=== PATIENT | female | born 1980 | race Caucasian/White ===

== ENCOUNTER 2023-10-01 13:21 | Inpatient (IN) | payer OTHER, SELFPAY ==
[2023-10-01] VITALS (48 sets, daily range): BP systolic 92–113; BP diastolic 66–80; PULSE 97–119; RESP 15–29; TEMP 36.2–37.6; O2SAT 90–99; BMI 21.9
--- NOTE | ~2023-10-01 | US_ITS ---
EXAMINATION: US venous doppler [facility] DATE: 10/06/2023 19:46 INDICATION: Hypoxia. Asymmetric lower limb swelling. TECHNIQUE: Grayscale ultrasound images without and with compression and Doppler ultrasound images of the bilateral lower extremity veins were obtained. COMPARISON: None. FINDINGS: The visualized portions of right common femoral vein, profunda (deep) femoral vein, femoral vein, pop liteal vein, posterior tibial veins, peroneal veins, gastrocnemius vein and greater saphenous vein ou tflow are patent. The visualized portions of left common femoral vein, profunda femoral vein, femoral vein, popliteal v ein, posterior tibial veins, peroneal veins, gastrocnemius vein and greater saphenous vein outflow ar e patent. IMPRESSION: 1. No deep venous thrombosis in either lower limb. Reviewed, dictated and finalized at location A. ER DISCOVERY TEACHER
--- NOTE | ~2023-10-01 | XR_ITS ---
EXAMINATION: XR chest 1V portable Exam Date/Time: 10/03/2023 15:15 MOTOR ANALYST HISTORY: cough Comparison: 07/09/2010. RESULT: Lines, tubes, and devices: Cholecystectomy clips. Intact median sternotomy wires. Lungs and pleura: Mild diffuse interstitial and reticulonodular opacities. Linear left lower lung op acity may represent discoid atelectasis or scar. Cardiomediastinal silhouette: Stable. Other: No acute osseous or upper abdominal finding. IMPRESSION: Mild interstitial edema versus respiratory bronchiolitis. Reviewed, dictated and finalized at location K. R ANALYST
--- NOTE | ~2023-10-01 | XR_ITS ---
Portable chest x-ray Comparison: 10/16/2023 Clinical History: Respiratory failure Findings: Endotracheal tube, NG tube, and right IJ line remain in place. Extensive hazy and intersti tial pulmonary disease is similar to minimally improved from prior exam. Cardiomediastinal silhouett e is stable. Bones and soft tissues are unremarkable. Impression: Diffuse pulmonary disease is similar to minimally improved from prior exam. Stable support tubes. Reviewed, dictated and finalized at [facility]. CENTER CONSULTANT Impression: Diffuse pulmonary disease is similar to minimally improved from prior exam. Stable support tubes.
--- NOTE | ~2023-10-01 | XR_ITS ---
EXAMINATION: XR chest ET placement DATE: 10/12/2023 16:48 INDICATION: Intubation TECHNIQUE: frontal view of the chest was obtained. COMPARISON: Chest radiograph dated 10/15/[address] dated 10/10/2023 FINDINGS: Endotracheal tube tip extends slightly prominent but ute into the right mainstem bronchus. There i s a gastric tube tip in proximal side port in the stomach. Right internal jugular central venous cath eter with distal tip at the superior cavoatrial junction. Interstitial and patchy airspace opacities throughout both lungs. No pleural effusion or pneumothorax . Heart size is normal for AP technique. Cholecystectomy clips in right upper quadrant. IMPRESSION: 1. Endotracheal tube in the right mainstem bronchus. Per discussion with the patient's nurse this has already been withdrawn by 2 cm and would correlate with follow-up radiograph. 2. Diffuse bilateral lung disease which could represent pneumonia and/or moderate pulmonary edema. Reviewed, dictated and finalized at location A. FER IMPRESSION: 1. Endotracheal tube in the right mainstem bronchus. Per discussion with the librado laurent's nurse this has already been withdrawn by 2 cm and would correlate with follow-up radiograph. 2. Diffuse bilateral lung disease which could represent pneumonia and/or modera te pulmonary edema.
--- NOTE | ~2023-10-01 | XR_ITS ---
EXAMINATION: XR chest 1V portable DATE: 10/16/2023 05:45 INDICATION: Acute respiratory distress syndrome. Respiratory failure. TECHNIQUE: A single frontal view of the chest was obtained. COMPARISON: Chest single view 10/15/2023 FINDINGS: There are airspace and interstitial opacities throughout the lungs bilaterally. No pleural effusion or pneumothorax. The heart size is normal. There are small median sternotomy wires. The endo tracheal tube tip is 4.0 cm above the ute. The nasogastric tube tip is beyond the inferior margin of the radiograph, but at least to the stomach. A right internal jugular central venous catheter is s een with tip in the proximal right atrium. Surgical clips in the right upper quadrant are likely from cholecystectomy. IMPRESSION: 1. Stable diffuse lung disease, consistent with pulmonary edema versus pneumonia versus acute respira tory distress syndrome (ARDS). Reviewed, dictated and finalized at location A. ORT SALES AGENT IMPRESSION: 1. Stable diffuse lung disease, consistent with pulmonary edema versus pneumoni a versus acute respiratory distress syndrome (ARDS).
--- NOTE | ~2023-10-01 | XR_ITS ---
EXAMINATION: XR abdomen gastric tube insert DATE: 10/12/2023 16:48 INDICATION: Orogastric tube placement. TECHNIQUE: A supine view of the abdomen on 2 radiographs was obtained. COMPARISON: CT abdomen and pelvis 10/11/23 FINDINGS: There are no dilated loops of bowel. The nasogastric tube tip is in the distal stomach. IMPRESSION: 1. Nasogastric tube tip in the distal stomach. Reviewed, dictated and finalized at location E. ING MACHINE OPERATOR
--- NOTE | ~2023-10-01 | CT_ITS ---
EXAMINATION: CTA chest PE protocol DATE: 10/10/2023 10:50 INDICATION: Hypoxia. Pleuritic chest pain. Tachycardia. TECHNIQUE: Computed tomography angiography (CTA) of the chest was performed with 100 mL Omnipaque-350 intravenous contrast timed to evaluate the pulmonary arteries. Coronal maximum intensity projection 3D-reconstructions were created by the technologist. Automated exposure control and iterative reconst ruction technique were employed. The dose-length product was 225.72 mGy-cm. COMPARISON: Chest CT 10/01/2023 FINDINGS: There are groundglass and airspace opacities, crazy paving, and septal thickening involving all lobes. There are small cystic areas in the upper lobes. There is a trace right pleural effusion. The heart size is normal. No pericardial effusion. Main pulmonary artery is enlarged, consistent wit h pulmonary arterial hypertension. There is no pulmonary embolus. There are small median sternotomy w ires. There is anterior fusion from T1 to T3. IMPRESSION: 1. No pulmonary embolus. 2. Diffuse lung disease with worsening from 10/01/2023, consistent with pneumonia without or with supe rimposed pulmonary edema. Reviewed, dictated and finalized at location E. CAL TRANSPORT SPECIALIST IMPRESSION: 1. No pulmonary embolus. 2. Diffuse lung disease with worsening from 10/01/2023, consistent with pneumoni a without or with superimposed pulmonary edema.
--- NOTE | ~2023-10-01 | CT_ITS ---
EXAMINATION: CT abdomen pelvis wo con DATE: 10/11/2023 08:19 INDICATION: Septicemia. TECHNIQUE: Computed tomography (CT) of the abdomen and pelvis was performed without intravenous contr ast. Automated exposure control and iterative reconstruction technique were employed. The dose-length product was 313.47 mGy-cm. COMPARISON: Chest CT 10/10/2023 FINDINGS: The visualized portions of the lung bases demonstrate widespread groundglass opacities, aircraft systems repairer zy paving, and airspace opacities. There are cystic areas in right middle lobe and lingula. There is a trace right pleural effusion. The heart size is normal. No pericardial effusion. The liver and sple en are normal. There are changes of cholecystectomy. The pancreas, adrenal glands, and kidneys are no rmal. There are no dilated loops of bowel. The appendix is normal. There is a Augustin catheter in expec mikayla position. There are no pathologically enlarged lymph nodes. There is no free intraperitoneal flui d. The bones are unremarkable. IMPRESSION: 1. Stable diffuse lung disease, consistent with pneumonia without or with superimposed pulmonary delgado a. Reviewed, dictated and finalized at location A. UT CLEANER IMPRESSION: 1. Stable diffuse lung disease, consistent with pneumonia without or with super imposed pulmonary edema.
--- NOTE | ~2023-10-01 | XR_ITS ---
Portable chest x-ray Comparison: 10/17/2023 Clinical History: Pneumonia Findings: Endotracheal tube and NG tube are in satisfactory position. Right IJ line are in place. Ex tensive hazy pulmonary disease is similar to prior exam. Cardiomediastinal silhouette is stable. Bon es and soft tissues are unremarkable. Impression: Extensive pulmonary disease is similar to prior exam. Correlate for pulmonary edema or infection. Support tubes, as above. Reviewed, dictated and finalized at location . ECT ARCHITECT Impression: Extensive pulmonary disease is similar to prior exam. Correlate for pulmonary e stephanie or infection. Support tubes, as above.
--- NOTE | ~2023-10-01 | XR_ITS ---
Portable chest x-ray Comparison: 10/05/2023 Clinical History: Shortness of breath Findings: There is new consolidation at the bilateral lung bases, left worse than right. Cardiomedi astinal silhouette is stable. Bones and soft tissues are unremarkable. Impression: Bibasilar consolidation, left worse than right, new from prior exam. Correlate for developing pneumon ia versus pulmonary edema. Reviewed, dictated and finalized at [facility]. REPRESENTATIVE Impression: Bibasilar consolidation, left worse than right, new from prior exam. Correlate for developing pneumonia versus pulmonary edema.
--- NOTE | ~2023-10-01 | CT_ITS ---
CT Scan of the Chest without Contrast: Clinical Indication: Pneumonia Technique: Contiguous sections were acquired throughout the chest without intravenous contrast. Dose reduction technique was used on this scan by utilizing automated exposure control and iterative recon struction technique. The dose-length product (DLP) was 158.30 mGy-cm. COMPARISON: 10/10/2023 Findings: There is no evidence of any significant mediastinal, hilar or axillary lymphadenopathy. The mediastin al soft tissues appear normal. There is no evidence of pleural or pericardial effusion. There is diffuse groundglass pulmonary opacities more confluent consolidation in the left upper lobe, which is worsened from prior exam. There is patchy bibasilar consolidation as well. Images through the upper abdomen reveal splenomegaly. Impression: Extensive groundglass pulmonary disease with worsening consolidation left upper lobe as well as addit ional bibasilar consolidation. Correlate for pulmonary edema, infection, and/or ARDS. Splenomegaly. Reviewed, dictated and finalized at [facility]. ICE ORDER EXPEDITER Impression: Extensive groundglass pulmonary disease with worsening consolidation left upper lobe as well as additional bibasilar consolidation. Correlate for pulmonary ed violet, infection, and/or ARDS. Splenomegaly.
--- NOTE | ~2023-10-01 | CT_ITS ---
Non-contrast Head CT History: Anisocoria Technique: Axial non-contrast imaging of the brain was performed. Dose reduction technique was used on this scan by utilizing automated exposure control and iterative reconstruction technique. The dose -length product (DLP) was 605.33 mGy-cm. Findings: There is a hypodense wedge-shaped area extending to the cortex in the left frontal lobe, ex tending to the left insular cortex, suspicious for acute to subacute infarct. No intracranial hemorrh age identified. There is additional focal hyperdensity in the left cerebellar hemisphere, which could reflect positional acute to subacute infarct. The ventricles and subarachnoid spaces are normal in s ize. The calvarium appears normal. The visualized paranasal sinuses and mastoid air cells are clear . 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 Suspected additional focal acute subacute infarct in the left cerebellum. MR should be considered to further evaluate. Case discussed with Dr. Pepe at the time of this reading. Reviewed, dictated and finalized at location . K MECHANIC APPRENTICE Impression: Focal wedge-shaped acute to subacute infarct involving the left frontal lobe ex tending to the insular cortex. Suspected additional focal acute subacute infarct in the left cerebellum. MR should be considered to further evaluate. Case discussed with Dr. Pepe at the time of this reading.
--- NOTE | ~2023-10-01 | XR_ITS ---
EXAMINATION: XR chest 1V portable INDICATION: ARDS, respiratory failure TECHNIQUE: Portable AP chest at 0449 hours COMPARISON: 10/14/2023 FINDINGS: The endotracheal tube ends approximately 2.8 cm above the ute. The nasogastric tube is i n the stomach. A right internal jugular central venous catheter ends with its tip in the proximal rig ht atrium. Diffuse interstitial and airspace opacities persist throughout all lung zones without sign ificant change. No pleural effusion or pneumothorax. The cardiomediastinal silhouette is stable. Smal l median sternotomy wires are consistent with pediatric cardiac surgery. IMPRESSION: 1. Stable diffuse lung disease, consistent with pneumonia and/or pulmonary edema. Reviewed, dictated and finalized at location F. TOR AND STORAGE BIN TENDER IMPRESSION: 1. Stable diffuse lung disease, consistent with pneumonia and/or pulmonary delgado a.
--- NOTE | ~2023-10-01 | XR_ITS ---
EXAMINATION: XR chest 1V portable DATE: 10/05/2023 10:49 INDICATION: Hypoxia. Influenza. TECHNIQUE: A single frontal view of the chest was obtained. COMPARISON: Chest single view 10/03/2023, chest CT 10/01/2023 FINDINGS: There are mild airspace opacities in the perihilar regions and left lower lung zone. No ple ural effusion or pneumothorax. The heart size is normal. Small mediastinal and aorta are noted. Surgi felecia clips in the right upper quadrant are likely from cholecystectomy. IMPRESSION: 1. Mild airspace opacities in the perihilar regions and left lower lung zone, consistent with pneumon ia. Reviewed, dictated and finalized at location A. ICAL WORKER IMPRESSION: 1. Mild airspace opacities in the perihilar regions and left lower lung zone, c onsistent with pneumonia.
--- NOTE | ~2023-10-01 | CT_ITS ---
EXAMINATION: CTA BRAIN/CAROTID DATE: 10/13/2023 12:11 INDICATION: Acute stroke TECHNIQUE: Computed tomographic angiography (CTA) of the head and neck was performed with 100 mL Omni paque-350 intravenous contrast. Multiplanar reconstructions and maximum intensity projection 3D-recon structions of the carotid arteries and of the intracranial arteries were created by the technologist on a separate workstation. Automated exposure control and iterative reconstruction technique were emp loyed.The dose-length product was 901.51 mGy-cm. COMPARISON: None. FINDINGS: Carotid arteries: Endotracheal tube tip 2.4 cm above the ute. Nasogastric tube extends caudally along the esophagus below the inferior most plane of imaging. Right internal jugular central venous catheter with distal tip extending to the caudal inferior vena cava and beyond the inferior most image. There is fluid layering dependently in the oral and nasopharynx. Prominent enlargement of the main pu lmonary artery consistent with pulmonary arterial hypertension. Mild emphysema and bronchiectatic seda nges in the visualized upper lungs, right greater than left. Crazy paving pattern with extensive grou ndglass opacities and intervening smooth septal line thickening in the visualized upper lungs. There is no evident atherosclerotic plaque with 0% stenosis of the right and left carotid bulbs relat blanca to normal distal artery lumen diameter (NASCET criteria). Bilateral vertebral arteries are codomi nant. Severe cervical spondylosis with likely developmentally fused vertebral bodies and posterior el ements of C2 and C3. There is also fusion anteriorly at T1-T3. Intracranial arteries Vertebral arteries are codominant. There is no hemodynamically significant stenosis in the vertebral, basilar and internal carotid arteries. Vertebral arteries are codominant. There are no aneurysms jayce ntified. The left P1 and bilateral A1 segments are patent. The right posterior cerebral artery suppli ed via a patent right posterior communicating artery. Beyond the second branching of the left middle cerebral artery there is attenuation and decreased contrast enhancement within a few of the cerebral arteries at the left sylvian fissure in the region of the previous noted region of subtly decreased a ttenuation in the posterior right frontal lobe cyst with infarct. Cerebral arterial arborization appe ars otherwise symmetric. IMPRESSION: 1. 0% stenosis of the left carotid bulbs relative to normal distal artery lumen diameter (NASCET crit eria). 2. Attenuation and decreased contrast enhancement suggesting small amount of thrombus within a few of the smaller left middle cerebral artery branches in the region of the left sylvian fissure in the re gion of the previous noted likely acute to subacute infarct in the posterior left frontal lobe. 3. Extensive lung disease with grade 3 pitting pattern in the visualized upper lungs which could repr esent pulmonary edema, pneumonia, ARDS or some combination thereof. Reviewed, dictated and finalized at location A. E REPAIRER IMPRESSION: 1. 0% stenosis of the left carotid bulbs relative to normal distal artery lumen diameter (NASCET criteria). 2. Attenuation and decreased contrast enhancement suggesting small amount of th rombus within a few of the smaller left middle cerebral artery branches in the region of the left sylvian fissure in the region of the previous noted likely a cute to subacute infarct in the posterior left frontal lobe. 3. Extensive lung disease with grade 3 pitting pattern in the visualized upper lungs which could represent pulmonary edema, pneumonia, ARDS or some combinatio n thereof.
--- NOTE | ~2023-10-01 | XR_ITS ---
Portable chest x-ray Comparison: 10/05/2023 Clinical History: Hypoxia Findings: Patchy bilateral airspace consolidation is present. No pleural effusion. Cardiomediastina l silhouette is stable. Bones and soft tissues are unremarkable. Impression: Patchy bilateral airspace consolidation, suspicious for bilateral pneumonia. Reviewed, dictated and finalized at [facility]. STRAIGHTENER Impression: Patchy bilateral airspace consolidation, suspicious for bilateral pneumonia.
--- NOTE | ~2023-10-01 | XR_ITS ---
EXAMINATION: XR barium swallow modified DATE: 10/07/2023 10:33 INDICATION: Dysphagia. TECHNIQUE: The patient was given barium-containing material of multiple consistencies to swallow by t he speech pathologist while I performed fluoroscopy. Fluoroscopy exposure time was 0.7 minutes. The n umber of fluoroscopy images saved to the PACS was 1. Dose-area product was 0.586 Gy-cm^2. FINDINGS: The oral stage, pharyngeal stage, and cervical/esophageal stage of the swallow are normal. IMPRESSION: 1. Normal modified barium swallow. 2. Please refer to the speech therapy report for recommendations. Reviewed, dictated and finalized at location A. RINTENDENT CIRCUS
--- NOTE | ~2023-10-01 | CT_ITS ---
EXAMINATION: CTA chest PE protocol DATE: 10/01/2023 16:15 INDICATION: SOA/CP TECHNIQUE: Computed tomography angiography (CTA) of the chest was performed with 100 mL Omnipaque-350 intravenous contrast timed to evaluate the pulmonary arteries. Coronal maximum intensity projection 3D-reconstructions were created by the technologist. The dose-length product (DLP) was 176.84 mGy-cm. Automated exposure control and iterative reconstruction technique were employed. COMPARISON: None. FINDINGS: Lung parenchyma and airways: Scattered patchy areas of central and centrilobular nodular groundglass and tree-in-bud opacities. Pleura: Unremarkable. Thoracic inlet, axillae and chest wall: Unremarkable. Thoracic aorta: Normal. Mediastinum: Normal. Heart and pericardium: Normal. Coronary artery calcifications: . Upper abdomen: Status post cholecystectomy. Bones: No acute osseous finding. Pulmonary arteries: Study quality: Adequate. No pulmonary emboli detected. IMPRESSION: No CT evidence of acute pulmonary embolus. Pulmonary opacities likely represent atypical/viral infection. Reviewed, dictated and finalized at location K. ECTOR REPAIRER SANDSTONE
--- NOTE | ~2023-10-01 | XR_ITS ---
Portable chest x-ray Comparison: 10/13/2023 Clinical History: Respiratory failure Findings: Endotracheal tube, NG tube, and right-sided central venous line are without significant ch virgil. Diffuse hazy and groundglass pulmonary disease present. Cardiomediastinal silhouette is stable . Bones and soft tissues are unremarkable. Impression: Stable diffuse pulmonary disease. Stable support tubes. Reviewed, dictated and finalized at [facility]. TION AGENT Impression: Stable diffuse pulmonary disease. Stable support tubes.
--- NOTE | ~2023-10-01 | XR_ITS ---
Portable chest x-ray Comparison: 10/12/2023 Clinical History: Respiratory failure Findings: Endotracheal tube, NG tube, and right IJ line are in satisfactory positions. Diffuse hazy and groundglass pulmonary disease is present, similar to prior exam. Cardiomediastinal silhouette is stable. Bones and soft tissues are unremarkable. Impression: Stable diffuse pulmonary disease. Stable support tubes. Reviewed, dictated and finalized at [facility]. H BLENDER Impression: Stable diffuse pulmonary disease. Stable support tubes.
--- NOTE | 2023-10-01 14:28 | ECG_ITS ---
Measurements Intervals [place] Rate: 109 P: 33 OR: 203 QRS: 67 QRSD: 95 T: 192 QT: 364 QTc: 492 Interpretive Statements SINUS TACHYCARDIA CANNOT RULE OUT SEPTAL INFARCT, AGE INDETERMINATE ST-T WAVE ABNORMALITY IN DIFFUSE LEADS- CONSIDER ISCHEMIA BASELINE ARTIFACT- I, II, III, AVR, AVL, AVF, V1-V6 ABNORMAL ECG NO PREVIOUS ECG AVAILABLE FOR COMPARISON Electronically Signed On 10-01-2023 16:11:02 AFTER SCHOOL PROGRAM ASSISTANT by Jose C Shea D.O.
[2023-10-01 14:44] LABS: Basophils Absolute Auto 0.1 K/mm3 (0.0-0.1); Basophils Percent Auto 1.6 % (0.2-1.2); Eosinophils Percent Auto 0.6 % (0-4.4); Hematocrit 50.3 % (37.0-47.0); Hemoglobin 16.8 g/dL (12.0-15.0); Immature Granulocyte Absolute 0.38 K/mm3 (0.00-0.031); Lymphocytes Absolute Auto 1.92 K/mm3 (0.9-3.2); Lymphocytes Percent Auto 30.3 % (18.3-44.2); Mean Corpuscular HGB Conc 33.4 g/dl (32-36); Mean Corpuscular Volume 98.8 fl (80-100); Mean Platelet Volume 11.9 fl (7.4-10.4); Monocytes Percent Auto 15.8 % (2.6-8.5); Neutrophils Absolute Auto 2.9 K/mm3 (1.3-6.7); Neutrophils Percent Auto 45.7 % (45.5-73.1); Platelet Count Result 233 k/mm3 (150-375); Red Blood Count 5.09 M/mm3 (4.2-5.4); Red Cell Distribution Width 13.9 % (11.5-14.5); White Blood Count 6.3 K/mm3 (4.5-10.0)
[2023-10-01 14:53] LABS: Alanine Aminotransferase 10 U/L (6-35); Alkaline Phosphatase 74 U/L (38-126); Anion Gap 10 mmol/L (8-16); Aspartate Amino Transferase 21 U/L (14-36); Bilirubin,Total 0.9 mg/dL (0.2-1.3); Blood Urea Nitrogen 9 mg/dL (7-17); Calcium 9.6 mg/dL (8.4-10.2); Carbon Dioxide 27 mmol/L (22-30); Chloride 98 mmol/L (98-107); Estimated Glomerular Filt Rate > 60; Glucose 112 mg/dL (65-110); Lipase 42 U/L (23-300); Sodium 135 mmol/L (137-145)
[2023-10-01 14:56] LABS: Prothrombin Time 13.2 Seconds (11.1-14.7)
[2023-10-01 14:57] LABS: Partial Thromboplastin Time 27.9 SECONDS (22.3-36.8)
[2023-10-01 15:07] LABS: Troponin I 0.042 ng/mL (0.000-0.034)
[2023-10-01] MEDS: ASPIRIN 81 MG CHEWABLE TABLET 324 MG PO (15:30)
--- NOTE | 2023-10-01 16:02 | PC.NURSE ---
patient denies being . states my old man is neutered . will sign waiver. Celia in [place] aware
--- NOTE | 2023-10-01 16:53 | ED.GENADULT ---
HPI - General Adult General Chief complaint: Chest Pain Stated complaint: sick for one wek Time Seen by Provider: 10/01/23 15:22 History of Present Illness HPI narrative: patient is a 43-year-old female who presents ER with weakness and shortness of breath. Worsening last week. Was associated with sinus congestion sore throat cough. Dyspnea is markedly worsen. Patient reports chest night illness. No hemoptysis. No pain with deep breath. No known sick contacts. Cough is productive. Related Data Allergies Allergy/AdvReac Type Severity Reaction Status Date / Time No Known Allergies Allergy Mild Verified 02/14/17 13:06 Review of Systems Review of Systems: All systems reviewed & are unremarkable except as noted in HPI and below Constitutional: Constitutional: Denies chills, Reports fatigue, Reports fever(s) and Reports weakness ENT: Reports nasal congestion and Reports sore throat Cardiovascular: Cardiovascular: Reports chest pain, Denies rapid heart rate and Denies radiating jaw, neck or arm pain Respiratory: Respiratory: Reports cough, Reports dyspnea and Reports wheezing Gastrointestinal: Gastrointestinal: Reports no additional gastrointestinal complaints Genitourinary: Genitourinary: Reports no additional female genitourinary complaints Musculoskeletal: Musculoskeletal: Reports no additional musculoskeletal complaints [facility] Past Medical History Medical History (Updated 10/01/23 @ 18:55 by Barak Richardson MD) Cardiomyopathy Chiari malformation Degenerative disc disease History of depression History of kidney stones Surgical History Surgical History (Updated 10/01/23 @ 17:13 by Barak Richardson MD) History of cholecystectomy History of open heart surgery Family History Family History (Updated 02/10/17 @ 08:38 by DOCTOR UNKNOWN) Grandparent Family history of chronic obstructive pulmonary disease Mother Family history of chronic obstructive pulmonary disease, Onset Age: 59 Sibling Family history of chronic obstructive pulmonary disease Social History Social History Smoking status: Never smoker Second hand tobacco smoke exposure: No Alcohol intake: current Exam Narrative: GENERAL: chronically ill-appearing, well-nourished, and in no acute distress. HEAD: Normocephalic, atraumatic. EYES: PERRL and EOMI. ENT: Mucous membranes moist. NECK: Supple. CHEST: coarse rales and wheezing bilaterally. No respiratory distress. HEART: Regular rate and rhythm. Normal peripheral pulses. ABDOMEN: Soft, nontender, nondistended. EXTREMITIES: Normal range of motion. No edema. SKIN: Warm, dry, no rash. NEURO: Alert and oriented x3. PSYCH: Normal mood and affect. Course Course Emergency Course: Admit to hospitalist service. Patient with influenza. Troponin still positive but flat. Hospitalist request Cardiology consultation, will have them contacted. Vital Signs Vital signs: Vital Signs Temperature 99.6 F 10/01/23 14:11 Pulse Rate 111 H 10/01/23 14:11 Respiratory Rate 18 10/01/23 14:11 Blood Pressure 107/68 10/01/23 14:11 Pulse Oximetry 97 10/01/23 14:11 Oxygen Delivery Room Air 10/01/23 14:11 Temperature 99.6 F 10/01/23 14:11 Pulse Rate 103 H 10/01/23 16:30 Respiratory Rate 17 10/01/23 16:30 Blood Pressure 108/74 10/01/23 16:03 Pulse Oximetry 90 10/01/23 16:30 Oxygen Delivery Room Air 10/01/23 15:25 Medical Decision Making Vital Signs Vital Signs: Vital Signs Temperature 99.6 F 10/01/23 14:11 Pulse Rate 111 H 10/01/23 14:11 Respiratory Rate 18 10/01/23 14:11 Blood Pressure 107/68 10/01/23 14:11 Pulse Oximetry 97 10/01/23 14:11 Oxygen Delivery Room Air 10/01/23 14:11 Temperature 99.6 F 10/01/23 14:11 Pulse Rate 103 H 10/01/23 16:30 Respiratory Rate 17 10/01/23 16:30 Blood Pressure 108/74 10/01/23 16:03 Pulse Oximetry 90 10/01/23 16:30 Ox
--- NOTE | 2023-10-01 17:19 | ECG_ITS ---
Measurements Intervals [place] Rate: 104 P: 7 SD: 224 QRS: 68 QRSD: 93 T: 244 QT: 372 QTc: 490 Interpretive Statements SINUS OR ECTOPIC ATRIAL TACHYCARDIA CANNOT RULE OUT SEPTAL INFARCT, AGE INDETERMINATE ST-T WAVE ABNORMALITY IN DIFFUSE LEADS- CONSIDER ISCHEMIA BASELINE ARTIFACT- II, III, AVF ABNORMAL ECG COMPARED TO ECG 10/01/2023 14:36:29 NO SIGNIFICANT CHANGES Electronically Signed On 10-01-2023 19:28:45 ENVIRONMENTAL PROTECTION SPECIALIST by Jose C Shea D.O.
[2023-10-01 17:22] LABS: NT Pro B Type Natriuretic Pept 2820 pg/mL (19.9-100)
[2023-10-01 17:45] LABS: Influenza A QL RT-PCR Positive (Negative); Influenza B QL RT-PCR Negative (Negative); RSV RNA, RT-PCR Negative (Negative); SARS-CoV-2 RNA PCR Negative (Negative)
[2023-10-01] MEDS: POTASSIUM CHLORIDE 20 MEQ ER TABLET 40 MEQ PO (18:11)
--- NOTE | 2023-10-01 19:13 | PC.NURSE ---
Report received from SPARKLE Waller. Assumed care of patient at this time.
--- NOTE | 2023-10-01 20:52 | PC.NURSE ---
Attempted to call report, was told RN will call back.
--- NOTE | 2023-10-01 21:01 | ECG_ITS ---
Measurements Intervals [place] Rate: 103 P: -1 GA: 195 QRS: 72 QRSD: 86 T: 228 QT: 373 QTc: 490 Interpretive Statements SINUS OR ECTOPIC ATRIAL TACHYCARDIA CANNOT RULE OUT SEPTAL INFARCT, AGE INDETERMINATE ST-T WAVE ABNORMALITY IN DIFFUSE LEADS- CONSIDER ISCHEMIA BASELINE ARTIFACT- II, III, AVR, AVL, AVF ABNORMAL ECG COMPARED TO ECG 10/01/2023 17:22:53 NO SIGNIFICANT CHANGES Electronically Signed On 10-02-2023 8:00:25 METER READER INSPECTOR by Jose C Shea D.O.
--- NOTE | 2023-10-01 21:16 | ADMGEN ---
This patient, Ivon Cui, was admitted to IMU Room 211-01. Patient/family oriented to hospital policies and general routines including ID bracelet, bed and alarms, visiting hours, pain management, procedures, bathroom and other care routines, personal items, smoking policy, room service/diet, and visiting hours. Information on how to activate the Rapid Response Team has been discussed. Patient/Family are encouraged to report perceived risks to care and to ask questions if they do not understand what they are told or what they should do.
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
[2023-10-01 21:25] LABS: Troponin I 0.039 ng/mL (0.000-0.034)
[2023-10-01 23:39] LABS: CRP 1.8 mg/dL (<1.0)
[2023-10-01 23:51] LABS: Procalcitonin 0.1 ng/mL
[2023-10-01] MEDS: LATANOPROST 0.005% OP SOLN 2.5 ML BTL 1 DROP EACH EYE (23:55)
[2023-10-01] MEDS: LOTEPREDNOL ETABONATE 0.5% OPH 5 ML BOTTLE 1 DROP EACH EYE (23:56)
[2023-10-01] MEDS: guaiFENesin 12 HR 600 MG TABCR PO (23:57)
[2023-10-01] MEDS: methocarbamoL 500 MG TABLET PO (23:57)
[2023-10-01] MEDS: TOPIRAMATE 100 MG TABLET PO (23:57)
[2023-10-01] MEDS: AMITRIPTYLINE HCL 25 MG TABLET 100 MG PO (23:57)
[2023-10-01] MEDS: SODIUM CHLORIDE 0.9% IV 1,000 ML 100 ML IV CONT (23:58)
[2023-10-02] VITALS (20 sets, daily range): BP systolic 95–112; BP diastolic 54–71; PULSE 89–117; RESP 16–24; TEMP 36.2–36.7; O2SAT 92–100
[2023-10-02] MEDS: IPRATROPIUM 0.5 MG/ALBUTEROL SULFATE 2.5 MG AMPUL.NEB 3 ML INHALATION ×4 (02:17→19:33)
[2023-10-02 05:06] LABS: Hematocrit 43.4 % (37.0-47.0); Hemoglobin 14.8 g/dL (12.0-15.0); Mean Corpuscular HGB Conc 34.1 g/dl (32-36); Mean Corpuscular Hemoglobin 33.9 pg (26-34); Mean Corpuscular Volume 99.3 fl (80-100); Mean Platelet Volume 11.3 fl (7.4-10.4); Platelet Count Result 201 k/mm3 (150-375); Red Blood Count 4.37 M/mm3 (4.2-5.4); Red Cell Distribution Width 13.7 % (11.5-14.5); White Blood Count 6.7 K/mm3 (4.5-10.0)
[2023-10-02 05:37] LABS: Anion Gap 9 mmol/L (8-16); Blood Urea Nitrogen 9 mg/dL (7-17); Calcium 8.8 mg/dL (8.4-10.2); Carbon Dioxide 25 mmol/L (22-30); Chloride 101 mmol/L (98-107); Estimated CRCL calculation 63 ml/min; Estimated Glomerular Filt Rate > 60; Glucose 109 mg/dL (65-110); Magnesium 1.5 mg/dL (1.6-2.3); Sodium 135 mmol/L (137-145)
[2023-10-02 05:38] LABS: Potassium 2.8 mmol/L (3.4-5.0)
[2023-10-02] MEDS: MAGNESIUM SULF 2 GM/WATER 50ML 2 GM/50 ML BAG IVPB (06:23)
[2023-10-02] MEDS: methocarbamoL 500 MG TABLET PO ×3 (06:23→21:12)
[2023-10-02] MEDS: POTASSIUM CHLORIDE 20 MEQ ER TABLET 40 MEQ PO (06:26)
[2023-10-02] MEDS: FLUTICASONE/SALMETEROL 115-21 MCG INHALER 1 PUFF 2 PUFF INHALATION ×2 (08:40→19:33)
--- NOTE | 2023-10-02 09:51 | PM.IMPN ---
Progress Note: A&P Assessment and Plan (1) Pneumonia due to influenza A virus: Code(s): J10.00 - Influenza due to other identified influenza virus with unspecified type of pneumonia Status: Acute (2) Influenza A: Code(s): J10.1 - Influenza due to other identified influenza virus with other respiratory manifestations Status: Acute (3) Chest pain: Code(s): R07.9 - Chest pain, unspecified Status: Acute (4) Elevated troponin: Code(s): R79.89 - Other specified abnormal findings of blood chemistry Status: Acute (5) Dehydration: Code(s): E86.0 - Dehydration Status: Acute (6) Asthma: Code(s): J45.909 - Unspecified asthma, uncomplicated Status: Acute (7) Hypokalemia: Code(s): E87.6 - Hypokalemia Status: Acute Plan The patient to the emergency department from home for evaluation cough and shortness of breath. She tested positive for influenza A and chest CTA showed evidence of an associated viral pneumonia. She has had symptoms for well over a week It does not appear that she has a concomitant bacterial pneumonia at this time given normal WBC count. She is wheezing on exam and has been started on scheduled bronchodilators. May benefit from steroids though will hold on that for now. Otherwise continue supportive care. Her chest pain may be related to the coughing however her troponin is a bit elevated at 0.042. Serial troponin was 0.042-0.040-0.039 remains flat. She reports a history of myocarditis previously and given her cardiac history the cardiologists have been consulted for their recommendations. IV fluid and potassium replacement as ordered. Echo has been ordered since hospitalized and now needing oxygen supplementation will start on Tamiflu. Subjective Date/time seen: 10/02/23 09:51 Interval history: No overnight events. Labs reviewed. Chart reviewed. Discussed with nursing staff. Shortness of breath cough generalized weakness Review of Systems Review of Systems: All systems reviewed & are unremarkable except as noted in HPI and below Exam Narrative: General: Moderately ill-appearing female in the semi-Good position in bed. HEENT: Wearing corrective lenses. Slightly hard of hearing. PERRL, EOMI. Sclera anicteric. Tacky mucous membranes. Neck: Supple. No lymphadenopathy or JVD. Respiratory: Respirations are nonlabored and she is speaking in full sentences. Lung sounds are diminished with scattered coarse rhonchi which improved with cough and end-expiratory wheezing. Cardiovascular: Regular rate and rhythm with S1-S2. Soft systolic murmur at the left sternal border. Gastrointestinal: Abdomen is soft, nontender, and nondistended with positive bowel sounds. Skin: Warm and dry. Extremities: No cyanosis, clubbing, or edema. Radial and pedal pulses intact. No palpable knots or cords. Neurological: Alert. Cranial nerves 2-12 are grossly intact. No gross focal deficits to casual conversation. Psychiatric: Pleasant and cooperative with normal mood and affect. Judgment and insight intact. Objective Data Vital Signs Vital Signs: Vital Signs - 24 hr 10/01/23 14:11 10/01/23 15:25 10/01/23 15:22 Temperature 99.6 F Pulse Rate 111 H 105 H Respiratory Rate 18 Blood Pressure 107/68 Pulse Oximetry 97 96 Oxygen Delivery Room Air Room Air Oxygen Flow Rate Fraction of Inspired Oxygen 10/01/23 15:24 10/01/23 15:30 10/01/23 15:31 Temperature Pulse Rate 113 H 119 H 110 H Respiratory Rate 22 H 20 29 H Blood Pressure 103/77 96/72 L Pulse Oximetry 97 93 94 Oxygen Delivery Oxygen Flow Rate Fraction of Inspired Oxygen 10/01/23 15:45 10/01/23 15:46 10/01/23 16:00 Temperature Pulse Rate 105 H 108 H 103 H Respiratory Rate 22 H 20 24 H Blood Pressure 113/80 Pulse Oximetry 91 96 Oxygen Delivery Oxygen Flow Rate Fraction of Inspired Oxygen 10/01/23 16:03 10/01/23 16:20 10/01/23 16:
[2023-10-02] MEDS: KCL 20 MEQ/SW 100 ML 100 ML 50 MEQ IVPB (10:35)
[2023-10-02] MEDS: guaiFENesin 12 HR 600 MG TABCR PO ×2 (10:36→21:12)
[2023-10-02] MEDS: TOPIRAMATE 100 MG TABLET PO ×2 (10:36→17:41)
[2023-10-02] MEDS: ENOXAPARIN 40 MG/0.4 ML SYRINGE SUB-Q (10:36)
[2023-10-02] MEDS: VERAPAMIL HCL 180 MG TABLET ER PO (10:36)
[2023-10-02] MEDS: FUROSEMIDE 40 MG TABLET PO (10:36)
[2023-10-02] MEDS: LOTEPREDNOL ETABONATE 0.5% OPH 5 ML BOTTLE 1 DROP EACH EYE ×2 (10:37→17:41)
[2023-10-02] MEDS: OSELTAMIVIR PHOSPHATE 75 MG CAPSULE PO ×2 (10:51→21:12)
--- NOTE | 2023-10-02 10:57 | PM.CNCAR ---
Assessment and Plan Assessment and plan (1) Elevated troponin: Code(s): R79.89 - Other specified abnormal findings of blood chemistry Status: Acute Assessment and Plan: Mild flat troponin elevation most likely secondary to acute hypoxic illness with influenza A without presentation or symptoms consistent with acute coronary syndrome and/or plaque rupture. Therefore, most likely type 2 infarction. No indication for ischemic evaluation at this time. Will review prior cardiovascular records, echocardiogram, cardiology office notes when available as requested. Further recommendation to follow. Repeat 2D echocardiogram ordered. Further recommendations after review. Discussed plan of care the patient who verbalized understanding and agreed with plan of care. Continue home cardiovascular medical therapy. DVT prophylaxis with enoxaparin. (2) Chest pain: Code(s): R07.9 - Chest pain, unspecified Status: Acute Assessment and Plan: Atypical, chronic made worse with coughing with musculoskeletal/pleuritic component very likely noncardiac. No clinical evidence for acute bobo pericarditis at this time. Conservative management per primary service and pain control is appropriate. Chest pain is not secondary to acute coronary syndrome and/or plaque rupture. (3) Pneumonia due to influenza A virus: Code(s): J10.00 - Influenza due to other identified influenza virus with unspecified type of pneumonia Status: Acute Assessment and Plan: CT angiogram of the chest at presentation revealed pulmonary opacities likely consistent with atypical/viral infection no pulmonary embolism unremarkable heart pericardium as reported but scattered patchy areas of central and centrilobular nodular ground-glass and tree-in-bud opacities. Patient has already been started on oseltamivir and continued on Incruse Ellipta, Advair, DuoNeb bronchodilator therapy. (4) Congenital heart disease: Code(s): Q24.9 - Congenital malformation of heart, unspecified Status: Acute Assessment and Plan: As above, history of surgically corrected secundum ASD, history of bicuspid aortic valve without history of repair thus far. Will review congenital heart disease records as requested when available. Per prior records given her history no indication for prophylactic antibiotics. (5) Cardiomyopathy: Code(s): I42.9 - Cardiomyopathy, unspecified Status: Acute Assessment and Plan: Previous records indicate apical variant hypertrophic cardiomyopathy for 2013. Will review most recent echocardiogram cardiovascular evaluations. However, I do not see evidence of LV dysfunction particularly given chronic medication use with verapamil this would not be favored in guideline directed medical therapy for CHF and/or cardiomyopathy and such this is unlikely. She reports taking verapamil predominantly for palpitations but could not verbalized a specific diagnosis. Patient is not presented in decompensated heart failure nor significant signs or symptoms suggestive of severe or significant LV dysfunction at this time. Will review echo further assessment with appropriate changes medications as clinically appropriate. (6) Hypokalemia: Code(s): E87.6 - Hypokalemia Status: Acute Assessment and Plan: Hypokalemic at 2.8 at presentation. Replete to around 4.0. Continue to monitor magnesium as well. Monitor renal function electrolytes closely. Electrolyte abnormalities may be increased risk for arrhythmias. Continue telemetry. 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
[2023-10-02 13:27] LABS: Potassium 3.7 mmol/L (3.4-5.0)
--- NOTE | 2023-10-02 16:54 | PC.NURSE ---
1630: Patient arrives from IMU bed 211 by . Patient able to ambulate from to bed without difficulties. She was oriented to her room and call light. Warm blanket and ice water given. Patient poor communicator and cannot articulate much about her care from previous unit. Appropriate cuff pulled to obtain accurate BP. Patient resting comfortably.
--- NOTE | 2023-10-02 17:10 | PC.NURSE ---
This patient, Ivon Cui, was transferred to [facility] on 10/02/23 at 1710. Personal belongings sent with patient. Report given to Tavia VILLAGRAN. Appropriate documentation sent with patient.
[2023-10-02] MEDS: AMITRIPTYLINE HCL 25 MG TABLET 100 MG PO (21:12)
[2023-10-02] MEDS: LATANOPROST 0.005% OP SOLN 2.5 ML BTL 1 DROP EACH EYE (21:13)
[2023-10-03] VITALS (18 sets, daily range): BP systolic 87–100; BP diastolic 51–70; PULSE 61–115; RESP 16–18; TEMP 36.3–36.6; O2SAT 93–100
[2023-10-03] MEDS: IPRATROPIUM 0.5 MG/ALBUTEROL SULFATE 2.5 MG AMPUL.NEB 3 ML INHALATION ×4 (01:01→19:29)
[2023-10-03 06:44] LABS: Hematocrit 42.3 % (37.0-47.0); Hemoglobin 13.8 g/dL (12.0-15.0); Mean Corpuscular HGB Conc 32.6 g/dl (32-36); Mean Corpuscular Hemoglobin 33.4 pg (26-34); Mean Corpuscular Volume 102.4 fl (80-100); Mean Platelet Volume 11.4 fl (7.4-10.4); Platelet Count Result 286 k/mm3 (150-375); Red Blood Count 4.13 M/mm3 (4.2-5.4); White Blood Count 7.1 K/mm3 (4.5-10.0)
[2023-10-03 06:54] LABS: Alanine Aminotransferase 7 U/L (6-35); Albumin Level 3.1 g/dL (3.5-5.1); Alkaline Phosphatase 54 U/L (38-126); Anion Gap 7 mmol/L (8-16); Aspartate Amino Transferase 19 U/L (14-36); Bilirubin,Total 0.5 mg/dL (0.2-1.3); Blood Urea Nitrogen 8 mg/dL (7-17); Calcium 9.5 mg/dL (8.4-10.2); Carbon Dioxide 26 mmol/L (22-30); Chloride 102 mmol/L (98-107); Estimated CRCL calculation 56 ml/min; Estimated Glomerular Filt Rate > 60; Glucose 98 mg/dL (65-110); Magnesium 1.7 mg/dL (1.6-2.3); Potassium 3.1 mmol/L (3.4-5.0); Sodium 135 mmol/L (137-145)
[2023-10-03 07:43] LABS: Band Neutrophils Percent 3 % (0-6); Lymphocytes Absolute Manual 2.27 K/mm3 (1.1-4.5); Monocytes Absolute Manual 0.35 K/mm3 (0.1-0.90); Monocytes Percent Manual 5 % (3-9); Neutrophils Absolute Manual 4.47 K/mm3 (1.7-7.2); Neutrophils Percent Manual 60 % (46-73); Platelet Estimate Adequate (Adequate); Schistocytes None Seen (NORMAL); Total Cells Counted 100
[2023-10-03] MEDS: FLUTICASONE/SALMETEROL 115-21 MCG INHALER 1 PUFF 2 PUFF INHALATION ×2 (07:53→19:29)
[2023-10-03] MEDS: POTASSIUM CHLORIDE 20 MEQ ER TABLET 40 MEQ PO (09:07)
[2023-10-03] MEDS: ENOXAPARIN 40 MG/0.4 ML SYRINGE SUB-Q (09:07)
[2023-10-03] MEDS: TOPIRAMATE 100 MG TABLET PO ×2 (09:08→16:57)
[2023-10-03] MEDS: FUROSEMIDE 40 MG TABLET PO (09:08)
[2023-10-03] MEDS: VERAPAMIL HCL 180 MG TABLET ER PO (09:08)
[2023-10-03] MEDS: guaiFENesin 12 HR 600 MG TABCR PO ×2 (09:08→20:36)
[2023-10-03] MEDS: OSELTAMIVIR PHOSPHATE 75 MG CAPSULE PO ×2 (09:08→20:36)
[2023-10-03] MEDS: LOTEPREDNOL ETABONATE 0.5% OPH 5 ML BOTTLE 1 DROP EACH EYE ×2 (09:09→17:00)
[2023-10-03] MEDS: methocarbamoL 500 MG TABLET PO ×2 (13:26→20:36)
--- NOTE | 2023-10-03 14:57 | PM.IMPN ---
Progress Note: A&P Assessment and Plan (1) Pneumonia due to influenza A virus: Code(s): J10.00 - Influenza due to other identified influenza virus with unspecified type of pneumonia Status: Acute (2) Influenza A: Code(s): J10.1 - Influenza due to other identified influenza virus with other respiratory manifestations Status: Acute (3) Chest pain: Code(s): R07.9 - Chest pain, unspecified Status: Acute (4) Elevated troponin: Code(s): R79.89 - Other specified abnormal findings of blood chemistry Status: Acute (5) Dehydration: Code(s): E86.0 - Dehydration Status: Acute (6) Asthma: Code(s): J45.909 - Unspecified asthma, uncomplicated Status: Acute (7) Hypokalemia: Code(s): E87.6 - Hypokalemia Status: Acute Plan The patient to the emergency department from home for evaluation cough and shortness of breath. She tested positive for influenza A and chest CTA showed evidence of an associated viral pneumonia. She has had symptoms for well over a week It does not appear that she has a concomitant bacterial pneumonia at this time given normal WBC count. She is wheezing on exam and has been started on scheduled bronchodilators. May benefit from steroids though will hold on that for now. Otherwise continue supportive care. Her chest pain may be related to the coughing however her troponin is a bit elevated at 0.042. Serial troponin was 0.042-0.040-0.039 remains flat. She reports a history of myocarditis previously and given her cardiac history the cardiologists have been consulted for their recommendations. IV fluid and potassium replacement as ordered. Echo has been ordered since hospitalized and now needing oxygen supplementation will start on Tamiflu. Check procalcitonin. Afebrile labs unremarkable. If procalcitonin hide will start on antibiotics. Echo pending will hold Lasix due to borderline blood pressure Subjective Date/time seen: 10/03/23 14:57 Interval history: No overnight events. Continued to feel tired remains afebrile. Blood pressure is borderline Review of Systems Review of Systems: All systems reviewed & are unremarkable except as noted in HPI and below Exam Narrative: General: Moderately ill-appearing female in the semi-Good position in bed. HEENT: Wearing corrective lenses. Slightly hard of hearing. PERRL, EOMI. Sclera anicteric. Tacky mucous membranes. Neck: Supple. No lymphadenopathy or JVD. Respiratory: Respirations are nonlabored and she is speaking in full sentences. Lung sounds are diminished with scattered coarse rhonchi which improved with cough and end-expiratory wheezing. Cardiovascular: Regular rate and rhythm with S1-S2. Soft systolic murmur at the left sternal border. Gastrointestinal: Abdomen is soft, nontender, and nondistended with positive bowel sounds. Skin: Warm and dry. Extremities: No cyanosis, clubbing, or edema. Radial and pedal pulses intact. No palpable knots or cords. Neurological: Alert. Cranial nerves 2-12 are grossly intact. No gross focal deficits to casual conversation. Psychiatric: Pleasant and cooperative with normal mood and affect. Judgment and insight intact. Objective Data Vital Signs Vital Signs: Vital Signs - 24 hr 10/02/23 16:00 10/02/23 16:30 10/02/23 19:39 Temperature 98.1 F 97.2 F L Pulse Rate 114 H 108 H 89 Respiratory Rate 24 H 16 18 Blood Pressure 101/57 L 97/60 L Pulse Oximetry 92 94 Oxygen Delivery Oxygen Flow Rate Fraction of Inspired Oxygen 10/02/23 19:40 10/02/23 19:52 10/02/23 20:55 Temperature 97.9 F Pulse Rate 89 91 97 Respiratory Rate 18 18 16 Blood Pressure 95/57 L Pulse Oximetry 96 97 Oxygen Delivery Nasal Cannula Oxygen Flow Rate 2 Fraction of Inspired Oxygen 10/02/23 20:00 10/03/23 01:01 10/03/23 01:10 Temperature Pulse Rate 85 87 Respiratory Rate 18 18 Blood Pressure Pulse Oximetry 97 Oxygen De
[2023-10-03] MEDS: PERFLUTREN LIPID MICROSPHERES 1.5 ML VIAL DILUTED TO 10 ML TOTAL VOLUME IV PUSH (15:45)
--- NOTE | 2023-10-03 16:05 | IVDEFINITY ---
Prior to administration of IV Definity the patient was educated on the risks and benefits of the imaging enhancing agent including potential adverse side effects. The patient verbalized understanding. Allergies were verified. No exclusion criteria were identified and at least one of the following inclusion criteria were met: 1) physician request, 2) patient technically difficult to image (per the [place] [employer] guidelines of two or more segments not discernable within the apical view), or 3) questionable left ventricular function. ?
[2023-10-03 16:37] LABS: Procalcitonin 0.1 ng/mL
[2023-10-03] MEDS: LATANOPROST 0.005% OP SOLN 2.5 ML BTL 1 DROP EACH EYE (16:58)
[2023-10-03] MEDS: SODIUM CHLORIDE 0.9% IV 1,000 ML 75 ML IV CONT (16:58)
[2023-10-03] MEDS: AMITRIPTYLINE HCL 25 MG TABLET 100 MG PO (20:36)
[2023-10-03] MEDS: methylPREDNISolone SOD SUCC 40 MG VIAL IV PUSH (20:37)
--- NOTE | 2023-10-03 23:01 | ECHO_ITS ---
Patient Info Name: Ivon Cui Age: 43 years : 1980 Gender: Female Ht: 60 in Wt: 112 lbs BSA: 1.47 m2 HR: 68 bpm BP: 91 / 57 mmHg Heart Rhythm: Sinus Rhythm, Tachycardia Technical Quality: Fair Exam Date: 10/03/2023 2:09 PM Exam Location: Echo Lab Exam Room: 309 Patient Status: Inpatient Admit Date: 10/03/2023 Staff Ordering Physician: Tessa Bermudez PA-C [employer] Manager: Nicolette Bearden RDCS Attending Provider: Shad Hernandez MD Referring Physician: Aidan HENSON; Exam Type: CA echo doppler w bubble study Study Info Indications - chest pain elevated troponins chd asd closure Complete two-dimentional, color flow and Doppler transthoracic echocardiogram is performed with agitated saline and with contrast to opacify the left ventricle and to improve the delineation of the left ventricle endocardial borders. Contrast/Agitated Saline Contrast/Ag. Saline: Definity Amount: 3.00 ml Administered By: Nicolette Bearden [facility] Existing IV Access: Yes IV Access Condition: patent with no signs of infiltration Summary 1. Left ventricular chamber dimension is normal. 2. Left ventricular systolic function is hyperdynamic, estimated at >70%. 3. There is no increased left ventricular wall thickness. However, there is suggestion of hypertrophy for the apex with a spade-like appearance suggestive of apical predominant hypertrophic cardiomyopathy. Clinical correlation advised. 4. The left ventricular diastolic function is indeterminate. 5. Technically difficult study with limited views. 6. No evidence for [id number] shunt with injection of agitated saline with or without Valsalva. 7. The aortic valve is not well visualized. 8. There is no aortic valve stenosis or significant regurgitation. 9. There is mild mitral valve regurgitation. 10. There is trace tricuspid valve regurgitation. 11. No pulmonary hypertension, estimated pulmonary arterial systolic pressure is 22 mmHg. 12. Consider cardiac MRI on an outpatient basis if clinically indicated. Recommendations * Consider cardiac MRI on an outpatient basis if clinically indicated. Left Ventricle Left ventricular chamber dimension is normal. Left ventricular systolic function is hyperdynamic, estimated at >70%. There is no increased left ventricular wall thickness. However, there is suggestion of hypertrophy for the apex with a spade-like appearance suggestive of apical predominant hypertrophic cardiomyopathy. Clinical correlation advised. The left ventricular diastolic function is indeterminate. Technically difficult study with limited views. Right Ventricle Right ventricular chamber dimension is not well visualized. Left Atria Left atrial chamber dimension is normal. Right Atria Right atrial chamber dimension is normal. Atrial Septum No evidence for [id number]-[id number] shunt with injection of agitated saline with or without Valsalva. Aortic Valve The aortic valve is not well visualized. There is no aortic valve stenosis or significant regurgitation. Pulmonic Valve The pulmonic valve is not well visualized. Mitral Valve The mitral valve has normal leaflets. There is mild mitral valve regurgitation. Tricuspid Valve The tricuspid valve leaflets are normal. There is trace tricuspid valve regurgitation. No pulmonary hypertension, estimated pulmonary arterial systolic pressure is 22 mmHg. Pericardium/Pleural The pericardium appears not well visualized. There is no pericardial effusion. Inferior Vena Cava Normal inferior vena cava with >50%
[2023-10-04] VITALS (16 sets, daily range): BP systolic 98–106; BP diastolic 51–61; PULSE 92–611; RESP 16–28; TEMP 36.5–36.6; O2SAT 93–95
[2023-10-04] MEDS: IPRATROPIUM 0.5 MG/ALBUTEROL SULFATE 2.5 MG AMPUL.NEB 3 ML INHALATION ×4 (01:21→21:32)
[2023-10-04] MEDS: SODIUM CHLORIDE 0.9% IV 1,000 ML 75 ML IV CONT (06:19)
[2023-10-04] MEDS: methylPREDNISolone SOD SUCC 40 MG VIAL IV PUSH ×3 (06:20→20:59)
[2023-10-04] MEDS: methocarbamoL 500 MG TABLET PO ×3 (06:20→20:59)
[2023-10-04 06:43] LABS: Basophils Absolute Auto 0.1 K/mm3 (0.0-0.1); Basophils Percent Auto 0.7 % (0.2-1.2); Hematocrit 43.1 % (37.0-47.0); Hemoglobin 13.8 g/dL (12.0-15.0); Immature Granulocyte Absolute 0.62 K/mm3 (0.00-0.031); Immature Granulocyte Percent A 6.2 % (0-0.5); Lymphocytes Absolute Auto 0.75 K/mm3 (0.9-3.2); Lymphocytes Percent Auto 7.5 % (18.3-44.2); Mean Corpuscular Hemoglobin 32.9 pg (26-34); Mean Corpuscular Volume 102.6 fl (80-100); Mean Platelet Volume 11.4 fl (7.4-10.4); Monocytes Absolute Auto 0.2 K/mm3 (0.1-0.6); Monocytes Percent Auto 2.2 % (2.6-8.5); Neutrophils Absolute Auto 8.4 K/mm3 (1.3-6.7); Neutrophils Percent Auto 83.4 % (45.5-73.1); Platelet Count Result 366 k/mm3 (150-375); Red Cell Distribution Width 14.2 % (11.5-14.5); White Blood Count 10.1 K/mm3 (4.5-10.0)
[2023-10-04 06:54] LABS: Alanine Aminotransferase 9 U/L (6-35); Albumin Level 3.3 g/dL (3.5-5.1); Alkaline Phosphatase 54 U/L (38-126); Anion Gap 9 mmol/L (8-16); Aspartate Amino Transferase 20 U/L (14-36); Bilirubin,Total 0.5 mg/dL (0.2-1.3); Blood Urea Nitrogen 8 mg/dL (7-17); Calcium 9.2 mg/dL (8.4-10.2); Carbon Dioxide 20 mmol/L (22-30); Chloride 104 mmol/L (98-107); Estimated CRCL calculation 56 ml/min; Estimated Glomerular Filt Rate > 60; Glucose 174 mg/dL (65-110); Magnesium 1.4 mg/dL (1.6-2.3); Potassium 3.9 mmol/L (3.4-5.0); Sodium 133 mmol/L (137-145)
[2023-10-04] MEDS: FLUTICASONE/SALMETEROL 115-21 MCG INHALER 1 PUFF 2 PUFF INHALATION ×2 (07:55→21:32)
[2023-10-04] MEDS: OSELTAMIVIR PHOSPHATE 75 MG CAPSULE PO ×2 (08:23→20:59)
[2023-10-04] MEDS: TOPIRAMATE 100 MG TABLET PO ×2 (08:23→17:44)
[2023-10-04] MEDS: guaiFENesin 12 HR 600 MG TABCR PO ×2 (08:23→20:59)
[2023-10-04] MEDS: ENOXAPARIN 40 MG/0.4 ML SYRINGE SUB-Q (08:23)
[2023-10-04] MEDS: MAGNESIUM SULF 2 GM/WATER 50ML 2 GM/50 ML BAG IVPB (08:24)
[2023-10-04] MEDS: VERAPAMIL HCL 180 MG TABLET ER PO (08:24)
[2023-10-04] MEDS: LOTEPREDNOL ETABONATE 0.5% OPH 5 ML BOTTLE 1 DROP EACH EYE ×2 (08:26→17:44)
--- NOTE | 2023-10-04 09:23 | PM.PNCARD ---
Progress Note: A&P Assessment and Plan (1) Elevated troponin: Code(s): R79.89 - Other specified abnormal findings of blood chemistry Status: Acute Assessment and Plan: Mild flat troponin elevation most likely secondary to acute hypoxic illness with influenza A without presentation or symptoms consistent with acute coronary syndrome and/or plaque rupture.? Therefore, most likely type 2 infarction. No indication for ischemic evaluation at this time.?Echocardiogram this admission shows LVEF >70%, suggestion of hypertrophy in the apex with a spade-like appearance suggestive of apical predominant hypertrophic cardiomyopathy. No evidence of interatrial shunt. No significant valvular disease. Continue home cardiovascular medical therapy. Outpatient follow up with her primary photograph printer. (2) Chest pain: Code(s): R07.9 - Chest pain, unspecified Status: Acute Assessment and Plan: Atypical, chronic made worse with coughing with musculoskeletal/pleuritic component very likely noncardiac.? No clinical evidence for acute bobo pericarditis at this time.? Conservative management per primary service and pain control is appropriate.? Chest pain is not secondary to acute coronary syndrome and/or plaque rupture (3) Pneumonia due to influenza A virus: Code(s): J10.00 - Influenza due to other identified influenza virus with unspecified type of pneumonia Status: Acute Assessment and Plan: Management as per primary team. (4) Congenital heart disease: Code(s): Q24.9 - Congenital malformation of heart, unspecified Status: Acute Assessment and Plan: As above, history of surgically corrected secundum ASD, history of bicuspid aortic valve without history of repair thus far.? Per prior records given her history no indication for prophylactic antibiotics. (5) Cardiomyopathy: Code(s): I42.9 - Cardiomyopathy, unspecified Status: Acute Assessment and Plan: Previous records indicate apical variant hypertrophic cardiomyopathy for 2012.? Patient is not in decompensated heart failure nor significant signs or symptoms suggestive of severe or significant LV dysfunction at this time.? Echocardiogram this admission shows LVEF >70%, suggestion of hypertrophy in the apex with a spade-like appearance suggestive of apical predominant hypertrophic cardiomyopathy. No evidence of interatrial shunt. No significant valvular disease. Can resume her PO Lasix if her blood pressures are acceptable. Outpatient follow up with her primary photograph printer. 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 Plan Cardiology will sign off at this time. Please call us back if needed. Recommendations and plan discussed with Hospitalist. 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 Patient also reports sharp chest pain which she states she has had for many years major worse with coughing more recently.? Initially she was severely
--- NOTE | 2023-10-04 09:33 | PCOTNOTE ---
The patient treatment was not able to be completed patient still eating breakfast. Will plan to continue treatment per plan of care.
--- NOTE | 2023-10-04 16:17 | PM.IMPN ---
Progress Note: A&P Assessment and Plan (1) Pneumonia due to influenza A virus: Code(s): J10.00 - Influenza due to other identified influenza virus with unspecified type of pneumonia Status: Acute (2) Influenza A: Code(s): J10.1 - Influenza due to other identified influenza virus with other respiratory manifestations Status: Acute (3) Chest pain: Code(s): R07.9 - Chest pain, unspecified Status: Acute (4) Elevated troponin: Code(s): R79.89 - Other specified abnormal findings of blood chemistry Status: Acute (5) Dehydration: Code(s): E86.0 - Dehydration Status: Acute (6) Asthma: Code(s): J45.909 - Unspecified asthma, uncomplicated Status: Acute (7) Hypokalemia: Code(s): E87.6 - Hypokalemia Status: Acute Plan The patient to the emergency department from home for evaluation cough and shortness of breath. She tested positive for influenza A and chest CTA showed evidence of an associated viral pneumonia. She has had symptoms for well over a week It does not appear that she has a concomitant bacterial pneumonia at this time given normal WBC count. She is wheezing on exam and has been started on scheduled bronchodilators. May benefit from steroids though will hold on that for now. Otherwise continue supportive care. Her chest pain may be related to the coughing however her troponin is a bit elevated at 0.042. Serial troponin was 0.042-0.040-0.039 remains flat. She reports a history of myocarditis previously and given her cardiac history the cardiologists have been consulted for their recommendations. IV fluid and potassium replacement as ordered. Echo has been ordered since hospitalized and now needing oxygen supplementation started on on Tamiflu. Procalcitonin was normal Afebrile labs unremarkable. Echo with EF more than 70% there is suggestion of hypertrophy for the apex with this pain like appearance suggestive of apical predominant hypertrophic cardiomyopathy. No oakgl-[id number]-aujl shunt no pulmonary hypertension consider cardiac MRI as an outpatient basis. Currently lasix on hold due to borderline blood pressure. DVT prophylaxis Lovenox Subjective Date/time seen: 10/04/23 16:17 Interval history: Continue continues to have shortness of breath and wheezing. Remains on 2 L oxygen Review of Systems Review of Systems: All systems reviewed & are unremarkable except as noted in HPI and below Exam Narrative: General: Moderately ill-appearing female sitting up in the chair. HEENT: Wearing corrective lenses. Slightly hard of hearing. PERRL, EOMI. Sclera anicteric. Tacky mucous membranes. Neck: Supple. No lymphadenopathy or JVD. Respiratory: Respirations are nonlabored and she is speaking in full sentences. Lung sounds are diminished with scattered coarse rhonchi with expiratory wheezing Cardiovascular: Regular rate and rhythm with S1-S2. Soft systolic murmur at the left sternal border. Gastrointestinal: Abdomen is soft, nontender, and nondistended with positive bowel sounds. Skin: Warm and dry. Extremities: No cyanosis, clubbing, or edema. Radial and pedal pulses intact. No palpable knots or cords. Neurological: Alert. Cranial nerves 2-12 are grossly intact. No gross focal deficits to casual conversation. Psychiatric: Pleasant and cooperative with normal mood and affect. Judgment and insight intact. Objective Data Vital Signs Vital Signs: Vital Signs - 24 hr 10/03/23 19:30 10/03/23 19:30 10/03/23 20:40 Temperature 97.3 F L Pulse Rate 94 94 110 H Respiratory Rate 18 18 16 Blood Pressure 95/62 L Pulse Oximetry 97 93 Oxygen Delivery Nasal Cannula Oxygen Flow Rate 2 Fraction of Inspired Oxygen 28 10/03/23 20:00 10/03/23 20:00 10/04/23 01:22 Temperature Pulse Rate 105 H 100 Respiratory Rate 18 Blood Pressure Pulse Oximetry 93 Oxygen Delivery Nasal Cannula Oxygen Flow Rate 2 Fraction of Inspired Oxyge
[2023-10-04] MEDS: AMITRIPTYLINE HCL 25 MG TABLET 100 MG PO (20:58)
[2023-10-04] MEDS: LATANOPROST 0.005% OP SOLN 2.5 ML BTL 1 DROP EACH EYE (20:59)
[2023-10-05] VITALS (17 sets, daily range): BP systolic 101–116; BP diastolic 51–71; PULSE 92–126; RESP 18–24; TEMP 36.3–36.8; O2SAT 86–96
[2023-10-05] MEDS: IPRATROPIUM 0.5 MG/ALBUTEROL SULFATE 2.5 MG AMPUL.NEB 3 ML INHALATION ×4 (02:52→20:20)
[2023-10-05] MEDS: methylPREDNISolone SOD SUCC 40 MG VIAL IV PUSH ×3 (06:05→21:33)
[2023-10-05] MEDS: methocarbamoL 500 MG TABLET PO ×3 (06:05→21:33)
[2023-10-05 07:12] LABS: Basophils Absolute Auto 0.1 K/mm3 (0.0-0.1); Basophils Percent Auto 0.4 % (0.2-1.2); Hematocrit 39.6 % (37.0-47.0); Hemoglobin 13.2 g/dL (12.0-15.0); Immature Granulocyte Absolute 0.92 K/mm3 (0.00-0.031); Immature Granulocyte Percent A 4.9 % (0-0.5); Lymphocytes Absolute Auto 0.86 K/mm3 (0.9-3.2); Lymphocytes Percent Auto 4.6 % (18.3-44.2); Mean Corpuscular HGB Conc 33.3 g/dl (32-36); Mean Corpuscular Hemoglobin 33.8 pg (26-34); Mean Corpuscular Volume 101.3 fl (80-100); Mean Platelet Volume 11.3 fl (7.4-10.4); Monocytes Absolute Auto 0.7 K/mm3 (0.1-0.6); Monocytes Percent Auto 3.6 % (2.6-8.5); Neutrophils Absolute Auto 16.3 K/mm3 (1.3-6.7); Neutrophils Percent Auto 86.5 % (45.5-73.1); Platelet Count Result 368 k/mm3 (150-375); Red Blood Count 3.91 M/mm3 (4.2-5.4); Red Cell Distribution Width 14.3 % (11.5-14.5); White Blood Count 18.9 K/mm3 (4.5-10.0)
[2023-10-05 07:35] LABS: Alanine Aminotransferase 8 U/L (6-35); Albumin Level 3.2 g/dL (3.5-5.1); Alkaline Phosphatase 53 U/L (38-126); Anion Gap 8 mmol/L (8-16); Aspartate Amino Transferase 17 U/L (14-36); Bilirubin,Total 0.3 mg/dL (0.2-1.3); Blood Urea Nitrogen 9 mg/dL (7-17); Carbon Dioxide 22 mmol/L (22-30); Chloride 106 mmol/L (98-107); Estimated CRCL calculation 50 ml/min; Estimated Glomerular Filt Rate > 60; Glucose 160 mg/dL (65-110); Potassium 3.4 mmol/L (3.4-5.0); Sodium 136 mmol/L (137-145)
[2023-10-05] MEDS: FLUTICASONE/SALMETEROL 115-21 MCG INHALER 1 PUFF 2 PUFF INHALATION ×2 (08:00→20:20)
[2023-10-05] MEDS: TOPIRAMATE 100 MG TABLET PO ×2 (09:25→17:39)
[2023-10-05] MEDS: ENOXAPARIN 40 MG/0.4 ML SYRINGE SUB-Q (09:25)
[2023-10-05] MEDS: guaiFENesin 12 HR 600 MG TABCR PO ×2 (09:26→21:33)
[2023-10-05] MEDS: LOTEPREDNOL ETABONATE 0.5% OPH 5 ML BOTTLE 1 DROP EACH EYE ×2 (09:26→17:39)
[2023-10-05] MEDS: OSELTAMIVIR PHOSPHATE 75 MG CAPSULE PO ×2 (09:26→21:33)
[2023-10-05] MEDS: VERAPAMIL HCL 180 MG TABLET ER PO (09:26)
--- NOTE | 2023-10-05 10:05 | PM.IMPN ---
Progress Note: A&P Assessment and Plan (1) Pneumonia due to influenza A virus: Code(s): J10.00 - Influenza due to other identified influenza virus with unspecified type of pneumonia Status: Acute Assessment and Plan: The patient presents with cough and shortness of breath. She tested positive for influenza A Chest CTA showed evidence of an associated viral pneumonia. Started on Tamiflu, Solu-medrol and bronchodilators. WBC higher but felt related to steroids. Cough persistent and nonproductive. Consider underlying bacterial PNA. Repeat CXR showing mild airspace opacities in the perihilar regions and LLL Add IS, CPT. Speech therapy to see given the coughing with swallowing. Complains of sore throat related to cough MRSA positive. Add abx. (2) Influenza A: Code(s): J10.1 - Influenza due to other identified influenza virus with other respiratory manifestations Status: Acute Assessment and Plan: As above (3) Chest pain: Code(s): R07.9 - Chest pain, unspecified Status: Acute Assessment and Plan: Patieint present with CP. Troponin was 0.042 before trending down. EKG showing sinus tachycardia and diffuse ST-T wave changes but no change on repeat. Echo showing with EF >70% and hypertrophy at the apex. No right to left shunt. Cardiology consulted and apprecaite their input. (4) Elevated troponin: Code(s): R79.89 - Other specified abnormal findings of blood chemistry Status: Acute Assessment and Plan: As above (5) Dehydration: Code(s): E86.0 - Dehydration Status: Acute Assessment and Plan: Stable. Renal function is normal. (6) Asthma: Code(s): J45.909 - Unspecified asthma, uncomplicated Status: Acute Assessment and Plan: As above (7) Hypokalemia: Code(s): E87.6 - Hypokalemia Status: Acute Assessment and Plan: Noted. Replace and monitor Plan DVT prophylaxis - lovenox Code status - full Subjective Date/time seen: 10/05/23 10:05 Interval history: 43yo female asthma, seizures, CMP and valvular heart disease here for cough and SOB and found to have influenza A Assuming care. Chart reviewed. Complaint sore throat he has pain with swallowing. Her cough is nonproductive. She is not on home oxygen. She does have nebulizers at home for her asthma. She is having chest pain with coughing and deep breathing. Exam Narrative: AF 97.3 101/51 104 18 95% 2L (weaned to 1L this morning) Gen - NARD sitting up in bed HEENT - oropharynx crowded. Chest -coarse inspiratory and expiratory rhonchi with end-expiratory wheezes. CV - RRR S1/S2. tele showing no signifincat dysrhythmias Abd - Soft, NT/ND, Positive BS Ext - No pedal edema Psych - Nml mood and affect Skin - Warm and dry Objective Data Vital Signs Vital Signs: Vital Signs - 24 hr 10/04/23 10:40 10/04/23 12:00 10/04/23 13:44 Temperature Pulse Rate 101 H Respiratory Rate Blood Pressure Pulse Oximetry Oxygen Delivery Nasal Cannula Nasal Cannula Oxygen Flow Rate 2 2 10/04/23 14:18 10/04/23 14:30 10/04/23 14:00 Temperature 97.7 F Pulse Rate 92 98 101 H Respiratory Rate 20 20 28 H Blood Pressure 98/53 L Pulse Oximetry 93 Oxygen Delivery Oxygen Flow Rate 10/04/23 16:00 10/04/23 21:32 10/04/23 21:33 Temperature Pulse Rate 108 H 98 Respiratory Rate 20 Blood Pressure Pulse Oximetry 93 Oxygen Delivery Nasal Cannula Oxygen Flow Rate 2 10/04/23 20:00 10/04/23 23:36 10/05/23 02:53 Temperature 97.9 F Pulse Rate 98 96 Respiratory Rate 16 20 Blood Pressure 106/51 L Pulse Oximetry 93 93 Oxygen Delivery Nasal Cannula Oxygen Flow Rate 2 10/05/23 03:05 10/04/23 20:00 10/05/23 00:00 Temperature Pulse Rate 92 99 122 H Respiratory Rate 20 Blood Pressure Pulse Oximetry Oxygen Delivery Oxygen Flow
--- NOTE | 2023-10-05 11:30 | PCOTNOTE ---
Attempted to see Patient at this time. Patient stated she just recently layed down is not getting back up, she is feeling horrible. As Patient spoke, seems as if she is just having increased difficulty with the bed, for positioning, ease of getting in/out of. Patient declined this session.
--- NOTE | 2023-10-05 14:20 | PCSTNOTE ---
Please refer to the Bedside Swallow Evaluation in the EMR. Please note, silent aspiration cannot be ruled out at bedside.
[2023-10-05 15:35] LABS: MRSA (PCR) DETECTED (NOT DETECTE)
[2023-10-05] MEDS: AMITRIPTYLINE HCL 25 MG TABLET 100 MG PO (21:33)
[2023-10-05] MEDS: cefTRIAXone 2 GM/NS 100 ML 2 GM/100 ML BAG IVPB (21:34)
[2023-10-05] MEDS: DOXYCYCLINE 100 MG/NS 100 ML 100 MG/100 ML BAG IVPB (21:34)
[2023-10-05] MEDS: LATANOPROST 0.005% OP SOLN 2.5 ML BTL 1 DROP EACH EYE (21:36)
--- NOTE | 2023-10-05 23:25 | PC.NURSE ---
Rapid response called pt is short of breath and having difficutling breathing, pt stated having chest pain with movement and coughing. O2 saturation 885% and increased O2 to 6L and O2 saturation remains in the 85% Heart rate 120.
[2023-10-05] MEDS: LEVALBUTEROL NEB 1.25 MG/3 ML (23:30)
--- NOTE | 2023-10-05 23:35 | P.PNCROSS_ITS ---
Event Note Event Note Event Note: Rapid response called around 23:25 S: Nurse reports patient with increasing shortness of breath, oxygen requirements, sinus tachycardia with activity, pleuritic pain, and increasing cough which is now starting to become productive of thick green sputum. O: Ill-appearing female in the semi-recumbent position. Currently on 6 L liters (up from 2L earlier this evening). She is tachycardic. Mildly diaphoretic. She is mildly tachypneic with conversational dyspnea. Lung sounds are very coarse throughout with scattered crackles, end-expiratory wheezing, and rhonchi which improve somewhat with cough. A: Pneumonia due to Influenza A with possible concomitant bacterial pneumonia and increasing oxygen requirements. Suspect progression of pneumonia though with her cardiac history (Leopard syndrome, cardiomyopathy) she may be a bit volume overloaded given ongoing tachycardia. Developing ARDS is a consideration. Pulmonary embolism less likely as chest CTA was negative days ago. P: ABG and chest x-ray ordered. STAT breathing treatment ordered. Continue CPT, Mucinex, and incentive spirometry. Continue Tamilflu, SoluMedrol, doxycycline, ceftriaxone, and scheduled DuoNebs. Add vancomycin to cover possible post viral strep/staph pneumonia (she is positive for MRSA in the nares). Lasix 20 mg IV x1. Check BNP. Transfer to IMU for Airvo vs BiPAP. Case discussed with Dr. Ann, supervisor throwing department. Recommendations given. Patient to be transferred to IMU for close monitoring with the above interventions. If her condition deteriorates would consider intubation and transfer to ICU. Critical Care Time Critical Care Time: Yes Total Critical Care Time: 35 Attestation: Due to a high probability of clinically significant, life threatening deterioration, the patient required my highest level of preparedness to intervene emergently and I personally spent this critical care time directly and personally managing the patient. This critical care time included obtaining a history; examining the patient; pulse oximetry; ordering and review of studies; arranging urgent treatment with development of a management plan; evaluation of patient's response to treatment; frequent reassessment; and discussions with other providers. It was exclusive of separately billable procedures and treating other patients and teaching time. Please see Assessment and Plan section and the rest of the note for further information on patient assessment and treatment.
[2023-10-05 23:47] LABS: Alveolar/Arterial O2 Gradient 273.6 mmHg; Base Excess ABG -2.4 mEq/l (+/-2.0); Carboxyhemoglobin 0.3 % THb (0-2.0); Fractional Inspired Oxygen 50 %; HCO3 ABG 19.2 mEq/l (22.0-26.0); Methemoglobin ABG 0.4 %THb (0-1.5); Oxygen Content ABG 17.9 %vol (16.0-22.0); PCO2 ABG 25.8 mmHg (35.0-45.0); PO2 ABG 53.9 mmHg (80.0-100.0); PO2 FiO2 Ratio Arterial Blood 1.08 %; Reduced Hemoglobin 12.3 %THb (0-5.0); Total Hemoglobin 14.7 g/dL (12.0-18.0); pH ABG 7.489 (7.350-7.450)
[2023-10-05 23:57] LABS: Device HIGH FLOW NASAL CANN; Site Drawn RIGHT BRACHIAL
[2023-10-06] VITALS (29 sets, daily range): BP systolic 91–115; BP diastolic 50–72; PULSE 95–124; RESP 22–36; TEMP 36.6–38; O2SAT 86–99
[2023-10-06 00:38] LABS: Anion Gap 11 mmol/L (8-16); Blood Urea Nitrogen 9 mg/dL (7-17); CRP 4.1 mg/dL (<1.0); Calcium 10.1 mg/dL (8.4-10.2); Carbon Dioxide 20 mmol/L (22-30); Chloride 105 mmol/L (98-107); Estimated CRCL calculation 50 ml/min; Estimated Glomerular Filt Rate > 60; Glucose 133 mg/dL (65-110); Potassium 3.5 mmol/L (3.4-5.0); Sodium 136 mmol/L (137-145)
[2023-10-06 00:45] LABS: NT Pro B Type Natriuretic Pept 3440 pg/mL (19.9-100)
[2023-10-06 00:53] LABS: Procalcitonin 0.3 ng/mL
--- NOTE | 2023-10-06 01:10 | PC.NURSE ---
Report given to Toney in ICU pt transferred to ICU 3. Bill significant other notified of transfer.
--- NOTE | 2023-10-06 01:56 | PC.NURSE ---
This patient, Ivon Cui, was received from [[id number]] on 10/06/23 at 0045. Report received from SPARKLE Oliveros. Patient/family oriented to unit policies and routines.
[2023-10-06] MEDS: VANCOMYCIN 1,500 MG/NS 500 ML 1,500 MG/500 ML BAG 250 MG IVPB (02:08)
[2023-10-06] MEDS: ACETAMINOPHEN/BUTALBITAL/CAFFEINE 325-50-40 MG TABLET (FIORICET) 1 TAB PO ×2 (02:26→22:56)
[2023-10-06] MEDS: IPRATROPIUM 0.5 MG/ALBUTEROL SULFATE 2.5 MG AMPUL.NEB 3 ML INHALATION ×4 (02:37→20:42)
[2023-10-06 04:20] LABS: Basophils Absolute Auto 0.1 K/mm3 (0.0-0.1); Basophils Percent Auto 0.4 % (0.2-1.2); Hematocrit 38.7 % (37.0-47.0); Hemoglobin 12.9 g/dL (12.0-15.0); Immature Granulocyte Absolute 0.37 K/mm3 (0.00-0.031); Immature Granulocyte Percent A 2.2 % (0-0.5); Lymphocytes Absolute Auto 0.28 K/mm3 (0.9-3.2); Lymphocytes Percent Auto 1.7 % (18.3-44.2); Mean Corpuscular HGB Conc 33.3 g/dl (32-36); Mean Corpuscular Hemoglobin 33.5 pg (26-34); Mean Corpuscular Volume 100.5 fl (80-100); Mean Platelet Volume 10.8 fl (7.4-10.4); Monocytes Absolute Auto 1.5 K/mm3 (0.1-0.6); Monocytes Percent Auto 9.2 % (2.6-8.5); Neutrophils Absolute Auto 14.3 K/mm3 (1.3-6.7); Neutrophils Percent Auto 86.5 % (45.5-73.1); Platelet Count Result 273 k/mm3 (150-375); Red Blood Count 3.85 M/mm3 (4.2-5.4); Red Cell Distribution Width 14.6 % (11.5-14.5); White Blood Count 16.6 K/mm3 (4.5-10.0)
[2023-10-06 04:36] LABS: Albumin Level 2.9 g/dL (3.5-5.1); Anion Gap 9 mmol/L (8-16); Blood Urea Nitrogen 10 mg/dL (7-17); Calcium 9.4 mg/dL (8.4-10.2); Carbon Dioxide 21 mmol/L (22-30); Chloride 105 mmol/L (98-107); Estimated CRCL calculation 50 ml/min; Estimated Glomerular Filt Rate > 60; Glucose 144 mg/dL (65-110); Magnesium 1.4 mg/dL (1.6-2.3); Phosphorus 3.6 mg/dL (2.5-4.5); Potassium 3.5 mmol/L (3.4-5.0); Sodium 135 mmol/L (137-145)
[2023-10-06] MEDS: methocarbamoL 500 MG TABLET PO ×3 (05:40→21:05)
[2023-10-06] MEDS: methylPREDNISolone SOD SUCC 40 MG VIAL IV PUSH ×3 (05:40→21:05)
[2023-10-06 05:47] LABS: Alveolar/Arterial O2 Gradient 481.9 mmHg; Base Excess ABG -2.3 mEq/l (+/-2.0); Fractional Inspired Oxygen 90 %; HCO3 ABG 20.5 mEq/l (22.0-26.0); Oxygen Content ABG 19.2 %vol (16.0-22.0); Oxygen Saturation ABG 98.8 % (95.0-100.0); Oxyhemoglobin 97.5 % THb (90.0-100.0); PCO2 ABG 29.8 mmHg (35.0-45.0); PO2 ABG 129.3 mmHg (80.0-100.0); PO2 FiO2 Ratio Arterial Blood 1.44 %; Total Hemoglobin 13.9 g/dL (12.0-18.0); pH ABG 7.455 (7.350-7.450)
[2023-10-06 05:50] LABS: Device NON-INVASIVE VENT; Modified Allen's Test Pass; Non-Invasive Vent Rate 12 /MIN; Site Drawn LEFT RADIAL
[2023-10-06 05:51] LABS: Non-Invasive Expiratory Pressure 6 CMH2O; Non-Invasive Inspiratory Pressure 12 CMH2O
--- NOTE | 2023-10-06 08:39 | PCSTNOTE ---
MBS on hold this morning at Dr. Patel request due to downgraded status; IMU but in ICU-3. Will continue to be in contact with Dr. Patel for when he is ready for patient to have MBS. Will leave order open.
[2023-10-06] MEDS: DOXYCYCLINE 100 MG/NS 100 ML 100 MG/100 ML BAG IVPB ×2 (09:08→21:06)
[2023-10-06] MEDS: FUROSEMIDE 40 MG TABLET PO (09:09)
[2023-10-06] MEDS: ENOXAPARIN 40 MG/0.4 ML SYRINGE SUB-Q (09:09)
[2023-10-06] MEDS: OSELTAMIVIR PHOSPHATE 75 MG CAPSULE PO ×2 (09:09→21:05)
[2023-10-06] MEDS: TOPIRAMATE 100 MG TABLET PO ×2 (09:09→17:39)
[2023-10-06] MEDS: MAGNESIUM SULF 2 GM/WATER 50ML 2 GM/50 ML BAG IVPB (09:09)
[2023-10-06] MEDS: guaiFENesin 12 HR 600 MG TABCR PO ×2 (09:09→21:05)
[2023-10-06] MEDS: FLUTICASONE/SALMETEROL 115-21 MCG INHALER 1 PUFF 2 PUFF INHALATION ×2 (09:10→20:42)
[2023-10-06] MEDS: LOTEPREDNOL ETABONATE 0.5% OPH 5 ML BOTTLE 1 DROP EACH EYE ×2 (09:11→17:39)
--- NOTE | 2023-10-06 09:16 | PM.IMPN ---
Progress Note: A&P Assessment and Plan (1) Acute respiratory failure: Code(s): J96.00 - Acute respiratory failure, unspecified whether with hypoxia or hypercapnia Status: Acute Assessment and Plan: Patient's condition worsened overnight. She was on 1-2 L of oxygen during day with the evening hours, she had worsening hypoxia requiring BiPAP support. ABG showing 7.49/26/54 on high-flow nasal cannula at 7 L, 50% FiO2. Patient did well with BiPAP. She tolerated this well. ABG is showing improvement in the hypoxia. Etiology could be related to aspiration. Consider bacterial pneumonia. Antibiotics had been started yesterday. Chest x-ray reviewed showing more consolidation in the lower lobes suggestive of developing pneumonia verses atelectasis. Consider PE but she had a negative CTA of the chest 4 days ago has been on Lovenox since she was hospitalized. Continue treatment with bronchodilators, steroids and antibiotics. Wean oxygen as tolerated. Make NPO for now. Check lower extremity venous Dopplers. (2) Pneumonia due to influenza A virus: Code(s): J10.00 - Influenza due to other identified influenza virus with unspecified type of pneumonia Status: Acute Assessment and Plan: The patient presents with cough and shortness of breath. She tested positive for influenza A Chest CTA 10/01 showed pulmonary opacities likely atypical/viral pneumonia but no PE. Started on Tamiflu, Solu-Medrol and bronchodilators. WBC was higher but felt related to steroids. White count better today Cough persistent and nonproductive. Sputum culture ordered. Repeat chest x-ray as above. consider underlying bacterial PNA versus atelectasis. MRSA screen positive. Continue IV antibiotics. Contineu CPT to see if this will open up consolidated sections. Speech therapy recommended [facility] [place] but will hold for now. Check blood cultures. Add pulmzyme (3) Influenza A: Code(s): J10.1 - Influenza due to other identified influenza virus with other respiratory manifestations Status: Acute Assessment and Plan: As above. Continue Tamiflu (4) Chest pain: Code(s): R07.9 - Chest pain, unspecified Status: Acute Assessment and Plan: Patieint present with CP. Troponin was 0.042 before trending down. EKG showing sinus tachycardia and diffuse ST-T wave changes but no change on repeat. Echo showing with EF >70% and hypertrophy at the apex. No right to left shunt. Cardiology consulted and apprecaite their input. [place] elevated Trop most likely type 2 infarction. (5) Elevated troponin: Code(s): R79.89 - Other specified abnormal findings of blood chemistry Status: Acute Assessment and Plan: As above (6) Dehydration: Code(s): E86.0 - Dehydration Status: Acute Assessment and Plan: Stable. Renal function is normal. (7) Asthma: Code(s): J45.909 - Unspecified asthma, uncomplicated Status: Acute Assessment and Plan: As above (8) Hypokalemia: Code(s): E87.6 - Hypokalemia Status: Acute Assessment and Plan: Noted. 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 Patient will need to follow up with her primary rooming house operator. (10) Congenital heart disease: Code(s): Q24.9 - Congenital malformation of heart, unspecified Status: Acute Assessment and Plan: Patient has a hx of surgical correction of secundum ASD, history of bicuspid aortic valve without history of repair thus far.? Per prior records given her history no indication for prophylactic antibiotics. Plan DVT prophylaxis - lovenox Code status - full Subjective Date/hector
[2023-10-06] MEDS: ACETAMINOPHEN 325 MG TABLET 650 MG PO ×3 (09:26→18:15)
[2023-10-06] MEDS: VERAPAMIL HCL 180 MG TABLET ER PO (09:27)
[2023-10-06] MEDS: DEXTROSE 5%/0.9% SOD CHL 1,000 ML 60 ML IV CONT (10:34)
[2023-10-06] MEDS: DORNASE ALFA INH SOLN 1 MG/ML 2.5 ML AMP 2.5 MG INHALATION ×2 (11:25→20:42)
--- NOTE | 2023-10-06 13:08 | PCSTNOTE ---
MBS not attempted due to patient's compromised respiratory status and dependence on BiPAP at this time according to SPARKLE Hernandez. Will check with hospitalist and RN tomorrow morning.
[2023-10-06] MEDS: cefTRIAXone 2 GM/NS 100 ML 2 GM/100 ML BAG IVPB (21:05)
[2023-10-06] MEDS: AMITRIPTYLINE HCL 25 MG TABLET 100 MG PO (21:05)
[2023-10-06] MEDS: LATANOPROST 0.005% OP SOLN 2.5 ML BTL 1 DROP EACH EYE (21:06)
[2023-10-06] MEDS: VANCOMYCIN 750 MG/NS 250 ML 750 MG/250 ML BAG 250 MG IVPB (22:55)
[2023-10-07] VITALS (26 sets, daily range): BP systolic 93–129; BP diastolic 55–79; PULSE 83–102; RESP 20–26; TEMP 36.6–37.1; O2SAT 93–99
[2023-10-07] MEDS: IPRATROPIUM 0.5 MG/ALBUTEROL SULFATE 2.5 MG AMPUL.NEB 3 ML INHALATION ×4 (02:18→19:59)
[2023-10-07 03:43] LABS: Basophils Absolute Auto 0.1 K/mm3 (0.0-0.1); Basophils Percent Auto 0.3 % (0.2-1.2); Hematocrit 38.9 % (37.0-47.0); Hemoglobin 12.8 g/dL (12.0-15.0); Immature Granulocyte Absolute 0.52 K/mm3 (0.00-0.031); Immature Granulocyte Percent A 3.2 % (0-0.5); Lymphocytes Absolute Auto 0.47 K/mm3 (0.9-3.2); Lymphocytes Percent Auto 2.9 % (18.3-44.2); Mean Corpuscular HGB Conc 32.9 g/dl (32-36); Mean Corpuscular Hemoglobin 33.1 pg (26-34); Mean Corpuscular Volume 100.5 fl (80-100); Mean Platelet Volume 10.9 fl (7.4-10.4); Monocytes Absolute Auto 0.7 K/mm3 (0.1-0.6); Monocytes Percent Auto 4.4 % (2.6-8.5); Neutrophils Absolute Auto 14.6 K/mm3 (1.3-6.7); Neutrophils Percent Auto 89.2 % (45.5-73.1); Platelet Count Result 239 k/mm3 (150-375); Red Blood Count 3.87 M/mm3 (4.2-5.4); Red Cell Distribution Width 14.4 % (11.5-14.5); White Blood Count 16.4 K/mm3 (4.5-10.0)
[2023-10-07 04:01] LABS: Alanine Aminotransferase 11 U/L (6-35); Albumin Level 2.9 g/dL (3.5-5.1); Alkaline Phosphatase 58 U/L (38-126); Anion Gap 9 mmol/L (8-16); Aspartate Amino Transferase 17 U/L (14-36); Bilirubin,Total 0.4 mg/dL (0.2-1.3); Blood Urea Nitrogen 15 mg/dL (7-17); Calcium 9.5 mg/dL (8.4-10.2); Carbon Dioxide 23 mmol/L (22-30); Chloride 104 mmol/L (98-107); Estimated CRCL calculation 50 ml/min; Estimated Glomerular Filt Rate > 60; Glucose 158 mg/dL (65-110); Magnesium 2.1 mg/dL (1.6-2.3); Phosphorus 3.8 mg/dL (2.5-4.5); Potassium 3.2 mmol/L (3.4-5.0); Sodium 136 mmol/L (137-145)
[2023-10-07] MEDS: DEXTROSE 5%/0.9% SOD CHL 1,000 ML 60 ML IV CONT ×2 (04:36→20:26)
[2023-10-07] MEDS: methylPREDNISolone SOD SUCC 40 MG VIAL IV PUSH ×3 (05:25→22:25)
[2023-10-07] MEDS: methocarbamoL 500 MG TABLET PO ×3 (05:25→22:25)
[2023-10-07] MEDS: DORNASE ALFA INH SOLN 1 MG/ML 2.5 ML AMP 2.5 MG INHALATION ×2 (08:19→19:59)
[2023-10-07] MEDS: FLUTICASONE/SALMETEROL 115-21 MCG INHALER 1 PUFF 2 PUFF INHALATION ×2 (08:19→19:59)
[2023-10-07] MEDS: OSELTAMIVIR PHOSPHATE 75 MG CAPSULE PO (08:29)
[2023-10-07] MEDS: ENOXAPARIN 40 MG/0.4 ML SYRINGE SUB-Q (08:29)
[2023-10-07] MEDS: guaiFENesin 12 HR 600 MG TABCR PO ×2 (08:29→20:27)
[2023-10-07] MEDS: FUROSEMIDE 40 MG TABLET PO (08:29)
[2023-10-07] MEDS: VERAPAMIL HCL 180 MG TABLET ER PO (08:29)
[2023-10-07] MEDS: POTASSIUM CHLORIDE 20 MEQ PACKET (FOR LIQUID) 40 MEQ PO (08:29)
[2023-10-07] MEDS: TOPIRAMATE 100 MG TABLET PO ×2 (08:29→17:21)
[2023-10-07] MEDS: DOXYCYCLINE 100 MG/NS 100 ML 100 MG/100 ML BAG IVPB ×2 (08:30→20:27)
[2023-10-07] MEDS: LOTEPREDNOL ETABONATE 0.5% OPH 5 ML BOTTLE 1 DROP EACH EYE ×2 (08:31→17:21)
--- NOTE | 2023-10-07 09:07 | PM.IMPN ---
Progress Note: A&P Assessment and Plan (1) Acute respiratory failure: Code(s): J96.00 - Acute respiratory failure, unspecified whether with hypoxia or hypercapnia Status: Acute Assessment and Plan: Patient's condition worsened overnight (10/05-10/06). She was on 1-2 L of oxygen during day but developed worsening hypoxia requiring BiPAP support. She tolerated this well. ABG showing 7.49/26/54 on high-flow nasal cannula at 7 L, 50% FiO2. ABG showed improvement in the hypoxia on bipap. CXR showed more consolidation in the lower lobes suggestive of developing pneumonia verses atelectasis. Etiology could be related to aspiration and/or bacterial pneumonia. Antibiotics already started. Consider PE but she had a negative CTA of the chest on admission and has been on Lovenox since she was hospitalized. Doppler LE negative for DVT Better today. CXR today reviewed showing patch bilateral airspace dz c/w PNA. Continue treatment with bronchodilators, steroids and antibiotics. Wean oxygen as tolerated. MBS ordered (2) Pneumonia due to influenza A virus: Code(s): J10.00 - Influenza due to other identified influenza virus with unspecified type of pneumonia Status: Acute Assessment and Plan: The patient presents with cough and shortness of breath. She tested positive for influenza A Chest CTA 10/01 showed pulmonary opacities likely atypical/viral pneumonia but no PE. Started on Tamiflu, Solu-Medrol and bronchodilators. WBC was higher but felt related to steroids. White count unchanged today Cough persistent and nonproductive. Sputum culture pending BCx pending MRSA screen positive. Suspect patient has bacterial PNA related to her influenza Continue IV antibiotics. Continue CPT Speech therapy recommended MBS which was ordered Continue IV abx. (3) Influenza A: Code(s): J10.1 - Influenza due to other identified influenza virus with other respiratory manifestations Status: Acute Assessment and Plan: As above. Continue Tamiflu through today (4) Chest pain: Code(s): R07.9 - Chest pain, unspecified Status: Acute Assessment and Plan: Patieint present with CP. Troponin was 0.042 before trending down. EKG showing sinus tachycardia and diffuse ST-T wave changes but no change on repeat. Echo showing with EF >70% and hypertrophy at the apex. No right to left shunt. Cardiology consulted and apprecaite their input. [place] elevated Trop most likely type 2 infarction. Still having chest pain felt related to above (5) Elevated troponin: Code(s): R79.89 - Other specified abnormal findings of blood chemistry Status: Acute Assessment and Plan: As above (6) Dehydration: Code(s): E86.0 - Dehydration Status: Acute Assessment and Plan: Stable. Renal function is normal. (7) Asthma: Code(s): J45.909 - Unspecified asthma, uncomplicated Status: Acute Assessment and Plan: As above (8) Hypokalemia: Code(s): E87.6 - Hypokalemia Status: Acute Assessment and Plan: Noted. 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 Patient will need to follow up with her primary patient accounting representative. (10) Congenital heart disease: Code(s): Q24.9 - Congenital malformation of heart, unspecified Status: Acute Assessment and Plan: Patient has a hx of surgical correction of secundum ASD, history of bicuspid aortic valve without history of repair thus far.? Per prior records given her history no indication for prophylactic antibiotics. Plan DVT prophylaxis - lovenox Code status - full Subjective Date/time seen:
[2023-10-07] MEDS: ACETAMINOPHEN 325 MG TABLET 650 MG PO (15:00)
[2023-10-07] MEDS: AMITRIPTYLINE HCL 25 MG TABLET 100 MG PO (20:27)
[2023-10-07] MEDS: cefTRIAXone 2 GM/NS 100 ML 2 GM/100 ML BAG IVPB (20:27)
[2023-10-07] MEDS: LATANOPROST 0.005% OP SOLN 2.5 ML BTL 1 DROP EACH EYE (20:28)
[2023-10-07] MEDS: WATER FOR IRRIGATION, STERILE 1,000 ML BOTTLE 1000 ML (21:29)
--- NOTE | 2023-10-07 21:31 | PC.NURSE ---
This patient, Ivon Cui, was received from [ICU3 ] on 10/07/23 at 2107. Patient/family oriented to unit policies and routines
--- NOTE | 2023-10-07 21:50 | PC.NURSE ---
This patient, Ivon Cui, was transferred to [facility] on 10/07/23 at 2109. Personal belongings sent with patient. Report given to Remedios VILLAGRAN. Appropriate documentation sent with patient.
[2023-10-07 23:43] LABS: Vancomycin Trough 8.2 ug/mL (10.0-20.0)
[2023-10-08] VITALS (29 sets, daily range): BP systolic 101–121; BP diastolic 61–87; PULSE 82–113; RESP 16–26; TEMP 36.1–37; O2SAT 89–100
[2023-10-08] MEDS: VANCOMYCIN 750 MG/NS 250 ML 750 MG/250 ML BAG 250 MG IVPB ×2 (00:11→15:34)
[2023-10-08] MEDS: IPRATROPIUM 0.5 MG/ALBUTEROL SULFATE 2.5 MG AMPUL.NEB 3 ML INHALATION ×4 (02:15→20:20)
[2023-10-08 05:46] LABS: Albumin Level 2.8 g/dL (3.5-5.1); Anion Gap 8 mmol/L (8-16); Blood Urea Nitrogen 11 mg/dL (7-17); Calcium 9.4 mg/dL (8.4-10.2); Carbon Dioxide 19 mmol/L (22-30); Chloride 110 mmol/L (98-107); Estimated CRCL calculation 56 ml/min; Estimated Glomerular Filt Rate > 60; Glucose 135 mg/dL (65-110); Potassium 3.1 mmol/L (3.4-5.0); Sodium 137 mmol/L (137-145)
[2023-10-08 05:56] LABS: Basophils Absolute Auto 0.2 K/mm3 (0.0-0.1); Basophils Percent Auto 0.8 % (0.2-1.2); Hematocrit 39.1 % (37.0-47.0); Hemoglobin 12.5 g/dL (12.0-15.0); Immature Granulocyte Absolute 1.26 K/mm3 (0.00-0.031); Immature Granulocyte Percent A 6.3 % (0-0.5); Lymphocytes Absolute Auto 0.58 K/mm3 (0.9-3.2); Lymphocytes Percent Auto 2.9 % (18.3-44.2); Mean Corpuscular Hemoglobin 32.7 pg (26-34); Mean Corpuscular Volume 102.4 fl (80-100); Mean Platelet Volume 11.2 fl (7.4-10.4); Monocytes Absolute Auto 0.9 K/mm3 (0.1-0.6); Monocytes Percent Auto 4.7 % (2.6-8.5); Neutrophils Absolute Auto 17.2 K/mm3 (1.3-6.7); Neutrophils Percent Auto 85.3 % (45.5-73.1); Platelet Count Result 226 k/mm3 (150-375); Red Blood Count 3.82 M/mm3 (4.2-5.4); Red Cell Distribution Width 14.2 % (11.5-14.5); White Blood Count 20.2 K/mm3 (4.5-10.0)
[2023-10-08] MEDS: methylPREDNISolone SOD SUCC 40 MG VIAL IV PUSH (06:20)
[2023-10-08] MEDS: methocarbamoL 500 MG TABLET PO ×2 (06:20→15:34)
[2023-10-08] MEDS: FLUTICASONE/SALMETEROL 115-21 MCG INHALER 1 PUFF 2 PUFF INHALATION ×2 (07:55→20:20)
[2023-10-08] MEDS: DORNASE ALFA INH SOLN 1 MG/ML 2.5 ML AMP 2.5 MG INHALATION ×2 (07:58→20:20)
--- NOTE | 2023-10-08 10:15 | PC.NURSE ---
Call placed to report Critical lab : Positive blood cultures with no answer. On the Final call Dr. Patel answered et was given report on Positive Blood cultures to both bottles with no changes made to the current Plan of Care at this time.
[2023-10-08] MEDS: guaiFENesin 12 HR 600 MG TABCR PO ×2 (10:38→21:06)
[2023-10-08] MEDS: DOXYCYCLINE 100 MG/NS 100 ML 100 MG/100 ML BAG IVPB ×2 (10:39→21:56)
[2023-10-08] MEDS: VERAPAMIL HCL 180 MG TABLET ER PO (10:39)
[2023-10-08] MEDS: ENOXAPARIN 40 MG/0.4 ML SYRINGE SUB-Q (10:41)
[2023-10-08] MEDS: LOTEPREDNOL ETABONATE 0.5% OPH 5 ML BOTTLE 1 DROP EACH EYE ×2 (10:44→17:54)
[2023-10-08] MEDS: FUROSEMIDE 40 MG TABLET PO (11:02)
[2023-10-08] MEDS: POTASSIUM CHLORIDE 20 MEQ PACKET (FOR LIQUID) 40 MEQ PO (11:02)
[2023-10-08] MEDS: TOPIRAMATE 100 MG TABLET PO ×2 (11:02→17:53)
--- NOTE | 2023-10-08 12:06 | PM.IMPN ---
Progress Note: A&P Assessment and Plan (1) Acute respiratory failure: Code(s): J96.00 - Acute respiratory failure, unspecified whether with hypoxia or hypercapnia Status: Acute Assessment and Plan: Patient's condition worsened overnight (10/05-10/06). She was on 1-2 L of oxygen during day but developed worsening hypoxia requiring BiPAP support. She tolerated BiPAP well. ABG showing 7.49/26/54 on high-flow nasal cannula at 7 L, 50% FiO2. Repeat ABG showed improvement in the hypoxia on bipap. CXR showed more consolidation in the lower lobes suggestive of developing pneumonia verses atelectasis. Etiology related to bacterial superinfection with pneumonia. Antibiotics were already started Consider PE but negative Chest CTA on admission and on Lovenox since she was hospitalized. Doppler LE negative for DVT Stable on 6L. MBS okay. CXR 10/07 showing patch bilateral airspace dz c/w PNA. Continue treatment with bronchodilators, steroids and antibiotics. Wean steroids Wean oxygen as tolerated. (2) Pneumonia due to influenza A virus: Code(s): J10.00 - Influenza due to other identified influenza virus with unspecified type of pneumonia Status: Acute Assessment and Plan: The patient presents with cough and shortness of breath. She tested positive for influenza A Chest CTA 10/01 showed pulmonary opacities likely atypical/viral pneumonia but no PE. Started on Tamiflu, Solu-Medrol and bronchodilators. Abx added 10/05 WBC was higher but felt related to steroids. White count higher again today. Cough persistent and mostly nonproductive. MRSA screen positive and Sputum culture growing MRSA BCx growing Staph aureus. Sensitivities pending Patient has bacterial PNA related to her influenza Continue IV antibiotics. Continue CPT Repeat BCx. Resuming PT/OT Consider KOLBY if persistent bacteremia. (3) Influenza A: Code(s): J10.1 - Influenza due to other identified influenza virus with other respiratory manifestations Status: Acute Assessment and Plan: As above. She completed a course of Tamiflu (4) Chest pain: Code(s): R07.9 - Chest pain, unspecified Status: Acute Assessment and Plan: Patieint present with chest pain. Troponin was 0.042 before trending down. EKG showing sinus tachycardia and diffuse ST-T wave changes but no change on repeat. Echo showing with EF >70% and hypertrophy at the apex. No right to left shunt. Cardiology consulted and appreciate their input. [place] elevated Trop most likely type 2 infarction. Still having chest pain felt related to musculoskeletal pain (5) Elevated troponin: Code(s): R79.89 - Other specified abnormal findings of blood chemistry Status: Acute Assessment and Plan: As above (6) Dehydration: Code(s): E86.0 - Dehydration Status: Acute Assessment and Plan: Stable. Renal function is normal. (7) Asthma: Code(s): J45.909 - Unspecified asthma, uncomplicated Status: Acute Assessment and Plan: As above (8) Hypokalemia: Code(s): E87.6 - Hypokalemia Status: Acute Assessment and Plan: Noted. 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 Patient will need to follow up with her primary senior account executive. (10) Congenital heart disease: Code(s): Q24.9 - Congenital malformation of heart, unspecified Status: Acute Assessment and Plan: Patient has a hx of surgical correction of secundum ASD, history of bicuspid aortic valve without history of repair thus far.? Per prior records given her history no indication for prophylactic antibiotics. Plan DVT prophyla
--- NOTE | 2023-10-08 16:23 | PC.NURSE ---
Report given to Dr. Patel the pt is c/o pain 9/10 pleuritic chest pain et has acetaminophen PRN for pain 1-3/10 numeric pain scale. The pt is tearful when coughing. Dr. Patel to review the POC.
[2023-10-08] MEDS: methylPREDNISolone SOD SUCC 40 MG VIAL 20 MG IV PUSH (17:52)
[2023-10-08] MEDS: guaiFENesin/CODEINE (*CRX) 200/20 MG 10 ML SYRUP PO ×2 (17:53→21:55)
[2023-10-08] MEDS: DEXTROSE 5%/0.9% SOD CHL 1,000 ML 60 ML IV CONT (17:54)
[2023-10-08] MEDS: cefTRIAXone 2 GM/NS 100 ML 2 GM/100 ML BAG IVPB (21:06)
[2023-10-08] MEDS: AMITRIPTYLINE HCL 25 MG TABLET 100 MG PO (21:06)
[2023-10-08] MEDS: LATANOPROST 0.005% OP SOLN 2.5 ML BTL 1 DROP EACH EYE (21:07)
[2023-10-08] MEDS: ACETAMINOPHEN 325 MG TABLET 650 MG PO (21:55)
[2023-10-08] MEDS: PANTOPRAZOLE 40 MG TABLET PO (22:21)
--- NOTE | 2023-10-08 23:37 | PC.NURSE ---
Bipap was alarming around 2330, when RN entered room pt had removed and was tachypneic and moaning. Pt states she is having 10/10 pain substernal that felt like severe heartburn . RN placed pt on her 6LHFNC. Pt had c/o earlier about heartburn, RN had obtained an order for protonix and administered to pt. Pt stated this happens every couple of weeks at home. After a few minutes, pt stated pain was subsiding, 3-4. RN checked on the patient 5 minutes later and pt stated the pain was gone completely.
[2023-10-09] VITALS (27 sets, daily range): BP systolic 101–119; BP diastolic 50–74; PULSE 84–110; RESP 18–35; TEMP 35.9–37.1; O2SAT 86–99
[2023-10-09] MEDS: VANCOMYCIN 750 MG/NS 250 ML 750 MG/250 ML BAG 250 MG IVPB (00:16)
[2023-10-09] MEDS: IPRATROPIUM 0.5 MG/ALBUTEROL SULFATE 2.5 MG AMPUL.NEB 3 ML INHALATION ×4 (03:45→20:23)
[2023-10-09 05:14] LABS: Basophils Percent Auto 0.1 % (0.2-1.2); Hematocrit 38.3 % (37.0-47.0); Hemoglobin 12.4 g/dL (12.0-15.0); Immature Granulocyte Absolute 2.35 K/mm3 (0.00-0.031); Immature Granulocyte Percent A 16.1 % (0-0.5); Lymphocytes Absolute Auto 0.96 K/mm3 (0.9-3.2); Lymphocytes Percent Auto 6.6 % (18.3-44.2); Mean Corpuscular HGB Conc 32.4 g/dl (32-36); Mean Corpuscular Volume 101.9 fl (80-100); Mean Platelet Volume 10.6 fl (7.4-10.4); Monocytes Percent Auto 7.1 % (2.6-8.5); Neutrophils Absolute Auto 10.2 K/mm3 (1.3-6.7); Neutrophils Percent Auto 70.1 % (45.5-73.1); Platelet Count Result 192 k/mm3 (150-375); Red Blood Count 3.76 M/mm3 (4.2-5.4); Red Cell Distribution Width 14.1 % (11.5-14.5); White Blood Count 14.6 K/mm3 (4.5-10.0)
[2023-10-09] MEDS: methylPREDNISolone SOD SUCC 40 MG VIAL 20 MG IV PUSH (05:32)
[2023-10-09 05:34] LABS: Albumin Level 2.4 g/dL (3.5-5.1); Anion Gap 3 mmol/L (8-16); Blood Urea Nitrogen 12 mg/dL (7-17); Calcium 9.2 mg/dL (8.4-10.2); Carbon Dioxide 23 mmol/L (22-30); Chloride 110 mmol/L (98-107); Estimated CRCL calculation 299 ml/min; Estimated Glomerular Filt Rate > 60; Glucose 94 mg/dL (65-110); Magnesium 1.7 mg/dL (1.6-2.3); Phosphorus 2.8 mg/dL (2.5-4.5); Potassium 3.6 mmol/L (3.4-5.0); Sodium 136 mmol/L (137-145)
[2023-10-09] MEDS: DORNASE ALFA INH SOLN 1 MG/ML 2.5 ML AMP 2.5 MG INHALATION (08:09)
[2023-10-09] MEDS: FLUTICASONE/SALMETEROL 115-21 MCG INHALER 1 PUFF 2 PUFF INHALATION ×2 (08:09→20:27)
[2023-10-09] MEDS: DOXYCYCLINE 100 MG/NS 100 ML 100 MG/100 ML BAG IVPB ×2 (08:51→21:58)
[2023-10-09] MEDS: ENOXAPARIN 40 MG/0.4 ML SYRINGE SUB-Q (08:51)
[2023-10-09] MEDS: TOPIRAMATE 100 MG TABLET PO ×2 (08:52→16:58)
[2023-10-09] MEDS: guaiFENesin 12 HR 600 MG TABCR PO ×2 (08:52→21:59)
[2023-10-09] MEDS: FUROSEMIDE 40 MG TABLET PO (08:52)
[2023-10-09] MEDS: VERAPAMIL HCL 180 MG TABLET ER PO (08:52)
[2023-10-09] MEDS: PANTOPRAZOLE 40 MG TABLET PO (08:52)
[2023-10-09] MEDS: LOTEPREDNOL ETABONATE 0.5% OPH 5 ML BOTTLE 1 DROP EACH EYE ×2 (09:07→16:57)
[2023-10-09 12:40] LABS: Vancomycin Trough 11.8 ug/mL (10.0-20.0)
--- NOTE | 2023-10-09 13:44 | PM.IMPN ---
Progress Note: A&P Assessment and Plan (1) Acute respiratory failure: Code(s): J96.00 - Acute respiratory failure, unspecified whether with hypoxia or hypercapnia Status: Acute Assessment and Plan: Patient's condition worsened overnight (10/05-10/06). She was on 1-2 L of oxygen during day but developed worsening hypoxia requiring BiPAP support. She tolerated BiPAP well. ABG showing 7.49/26/54 on high-flow nasal cannula at 7 L, 50% FiO2. Repeat ABG showed improvement in the hypoxia on bipap. CXR showed more consolidation in the lower lobes suggestive of developing pneumonia verses atelectasis. Etiology related to bacterial superinfection with pneumonia. Antibiotics were already started Chest CTA neagtive for PE on admission and on Lovenox since she was hospitalized. Doppler LE negative for DVT MBS okay. CXR 10/07 showing patch bilateral airspace dz c/w PNA. BCx posiitive for MRSA Continue treatment with bronchodilators and antibiotics. Will stop steroids. Still requiring O2 at 7L. Repeat CTA chest since can not exclude PE with her persistnet/worsening hypoxia, pleuritic pain and tachycardia. Wean oxygen as tolerated. (2) Septicemia: Code(s): A41.9 - Sepsis, unspecified organism Status: Acute Assessment and Plan: Present on admission with tachycardia and leukocytosis related to influenza A and subsequent MRSA bacteremia and PNA. BCx 10/05 positive for MRSA Sputum Cx 10/05 positive for MRSA Repeat BCx 10/08 positive for gram positive cocci in clusters. Repeat BCx could be contaminant so will await ID. Continue Vancomycin and monitor levels. Also on Doxy for atypical coverage but also with MRSA coverage. Rocephin Day 01/09 Follow up on repeat BCx results (3) Pneumonia due to influenza A virus: Code(s): J10.00 - Influenza due to other identified influenza virus with unspecified type of pneumonia Status: Acute Assessment and Plan: The patient presents with cough and shortness of breath. She tested positive for influenza A Chest CTA 10/01 showed pulmonary opacities likely atypical/viral pneumonia but no PE. Started on Tamiflu, Solu-Medrol and bronchodilators. Abx added 10/05 WBC was higher but felt related to steroids. White count better today Cough persistent as is the pleurtic chest pain MRSA screen positive and Sputum culture growing MRSA BCx growing MRSA. Repeat BCx also positive Patient has bacterial PNA related to her influenza Continue IV antibiotics. Continue CPT Continue PT/OT Consider KOLBY if repeat BCx growing MRSA (4) Influenza A: Code(s): J10.1 - Influenza due to other identified influenza virus with other respiratory manifestations Status: Acute Assessment and Plan: As above. She completed a course of Tamiflu (5) Chest pain: Code(s): R07.9 - Chest pain, unspecified Status: Acute Assessment and Plan: Patieint present with chest pain. Troponin was 0.042 before trending down. EKG showing sinus tachycardia and diffuse ST-T wave changes but no change on repeat. Echo showing with EF >70% and hypertrophy at the apex. No right to left shunt. Cardiology consulted and appreciate their input. [place] elevated Trop most likely type 2 infarction. Still having chest pain felt related to musculoskeletal pain. Can not exclude PE Repeat CTA (6) Elevated troponin: Code(s): R79.89 - Other specified abnormal findings of blood chemistry Status: Acute Assessment and Plan: As above (7) Dehydration: Code(s): E86.0 - Dehydration Status: Acute Assessment and Plan: Stable. Renal function is normal. (8) Asthma: Code(s): J45.909 - Unspecified asthma, uncomplicated Status: Acute Assessment and Plan: As above (9) Hypokalemia: Code(s): E87.6 - Hypokalemia Status: Acute Assessment and Plan: Noted. Continue to monitor and replace as need
[2023-10-09] MEDS: VANCOMYCIN 1,000 MG/NS 250 ML 1,000 MG/250 ML BAG 250 MG IVPB (14:27)
[2023-10-09] MEDS: guaiFENesin/CODEINE (*CRX) 200/20 MG 10 ML SYRUP PO (14:27)
--- NOTE | 2023-10-09 17:59 | PC.NURSE ---
Reported Blood Culture results to Dr. Adkins. Per Dr Adkins will review
[2023-10-09] MEDS: cefTRIAXone 2 GM/NS 100 ML 2 GM/100 ML BAG IVPB (21:56)
[2023-10-09] MEDS: LATANOPROST 0.005% OP SOLN 2.5 ML BTL 1 DROP EACH EYE (21:58)
[2023-10-09] MEDS: AMITRIPTYLINE HCL 25 MG TABLET 100 MG PO (21:58)
[2023-10-09] MEDS: ACETAMINOPHEN 325 MG TABLET 650 MG PO (22:19)
[2023-10-10] VITALS (28 sets, daily range): BP systolic 95–104; BP diastolic 41–52; PULSE 74–117; RESP 20–34; TEMP 36.4–36.9; O2SAT 92–97
[2023-10-10] MEDS: VANCOMYCIN 1,000 MG/NS 250 ML 1,000 MG/250 ML BAG 250 MG IVPB ×2 (02:10→13:58)
[2023-10-10] MEDS: IPRATROPIUM 0.5 MG/ALBUTEROL SULFATE 2.5 MG AMPUL.NEB 3 ML INHALATION ×4 (02:24→20:35)
[2023-10-10 04:40] LABS: Basophils Percent Auto 0.1 % (0.2-1.2); Eosinophils Absolute Auto 0.1 K/mm3 (0-0.3); Eosinophils Percent Auto 0.7 % (0-4.4); Hematocrit 37.6 % (37.0-47.0); Hemoglobin 12.3 g/dL (12.0-15.0); Immature Granulocyte Absolute 2.35 K/mm3 (0.00-0.031); Immature Granulocyte Percent A 17.4 % (0-0.5); Lymphocytes Absolute Auto 1.05 K/mm3 (0.9-3.2); Lymphocytes Percent Auto 7.8 % (18.3-44.2); Mean Corpuscular HGB Conc 32.7 g/dl (32-36); Mean Corpuscular Hemoglobin 33.3 pg (26-34); Mean Corpuscular Volume 101.9 fl (80-100); Mean Platelet Volume 11.4 fl (7.4-10.4); Monocytes Absolute Auto 0.6 K/mm3 (0.1-0.6); Monocytes Percent Auto 4.7 % (2.6-8.5); Neutrophils Absolute Auto 9.3 K/mm3 (1.3-6.7); Neutrophils Percent Auto 69.3 % (45.5-73.1); Platelet Count Result 143 k/mm3 (150-375); Red Blood Count 3.69 M/mm3 (4.2-5.4); Red Cell Distribution Width 14.5 % (11.5-14.5); White Blood Count 13.5 K/mm3 (4.5-10.0)
[2023-10-10 07:37] LABS: Alanine Aminotransferase 60 U/L (6-35); Albumin Level 2.3 g/dL (3.5-5.1); Alkaline Phosphatase 175 U/L (38-126); Anion Gap 3 mmol/L (8-16); Aspartate Amino Transferase 31 U/L (14-36); Bilirubin,Total 0.4 mg/dL (0.2-1.3); Blood Urea Nitrogen 10 mg/dL (7-17); Calcium 8.7 mg/dL (8.4-10.2); Carbon Dioxide 22 mmol/L (22-30); Chloride 108 mmol/L (98-107); Estimated CRCL calculation 65 ml/min; Estimated Glomerular Filt Rate > 60; Glucose 83 mg/dL (65-110); Sodium 133 mmol/L (137-145)
[2023-10-10] MEDS: FLUTICASONE/SALMETEROL 115-21 MCG INHALER 1 PUFF 2 PUFF INHALATION ×2 (08:00→20:35)
[2023-10-10] MEDS: POTASSIUM CHLORIDE 20 MEQ PACKET (FOR LIQUID) 40 MEQ PO (08:55)
[2023-10-10] MEDS: FUROSEMIDE 40 MG TABLET PO (08:57)
[2023-10-10] MEDS: VERAPAMIL HCL 180 MG TABLET ER PO (08:57)
[2023-10-10] MEDS: guaiFENesin 12 HR 600 MG TABCR PO ×2 (08:58→22:03)
[2023-10-10] MEDS: TOPIRAMATE 100 MG TABLET PO ×2 (08:58→16:38)
[2023-10-10] MEDS: PANTOPRAZOLE 40 MG TABLET PO (09:00)
[2023-10-10] MEDS: ENOXAPARIN 40 MG/0.4 ML SYRINGE SUB-Q (09:01)
[2023-10-10] MEDS: DOXYCYCLINE 100 MG/NS 100 ML 100 MG/100 ML BAG IVPB (09:02)
[2023-10-10] MEDS: LOTEPREDNOL ETABONATE 0.5% OPH 5 ML BOTTLE 1 DROP EACH EYE ×2 (09:08→16:39)
--- NOTE | 2023-10-10 09:37 | PCOTNOTE ---
The patient treatment was not able to be completed. Hold per RN at this time patient on high level O2. Will plan to continue treatment per plan of care.
[2023-10-10 10:13] LABS: Magnesium 1.4 mg/dL (1.6-2.3)
--- NOTE | 2023-10-10 10:52 | PCNWS ---
Weekly nutritional screen. Patient is tolerating current heart healthy diet with adequate intake 50-100% most meals. No weight loss reported. No nutritional needs at this time.
--- NOTE | 2023-10-10 13:20 | PCPTNOTE ---
Attempted to see patient for PT, however patient not appropriate for PT at this time due to patient's O2 SATs 88% at rest on Bipap.
[2023-10-10] MEDS: ACETAMINOPHEN 325 MG TABLET 650 MG PO (13:58)
[2023-10-10] MEDS: FUROSEMIDE INJ 40 MG/4 ML VIAL IV PUSH (14:41)
[2023-10-10] MEDS: MAGNESIUM SULF 2 GM/WATER 50ML 2 GM/50 ML BAG IVPB (14:42)
--- NOTE | 2023-10-10 14:54 | PM.IMPN ---
Progress Note: A&P Assessment and Plan (1) Acute respiratory failure: Code(s): J96.00 - Acute respiratory failure, unspecified whether with hypoxia or hypercapnia Status: Acute Assessment and Plan: Patient's condition worsened overnight (10/05-10/06). She was on 1-2 L of oxygen during day but developed worsening hypoxia requiring BiPAP support. She tolerated BiPAP well. ABG showing 7.49/26/54 on high-flow nasal cannula at 7 L, 50% FiO2. Repeat ABG showed improvement in the hypoxia on bipap. CXR showed more consolidation in the lower lobes suggestive of developing pneumonia verses atelectasis. Etiology related to bacterial superinfection with pneumonia. Antibiotics were already started Chest CTA neagtive for PE on admission and on Lovenox since she was hospitalized. Doppler LE negative for DVT MBS okay. CXR 10/07 showing patch bilateral airspace dz c/w PNA. Sputim positive for MRSA; BCx positive for MRSA on 10/06 and 10/08 CTA chest showing worening diffuse lung disease c/w PNA +/- pulmonary edema Clinical condition is worsening and now on bipap Continue treatment with bronchodilators and antibiotics. Steroids stopped Check ABG. Lasix IV x1 (fluid positive 6L). Minimize fluid intake. Discussed with as400 programmer. Change Vanco to Zyvox. Wean oxygen as tolerated. (2) Septicemia: Code(s): A41.9 - Sepsis, unspecified organism Status: Acute Assessment and Plan: Present on admission with tachycardia and leukocytosis related to influenza A and subsequent MRSA bacteremia and PNA. BCx 10/06 positive for MRSA Sputum Cx 10/05 positive for MRSA Repeat BCx 10/08 positive for MRSA Discussed with as400 programmer. Change Vanco to Zyvox. Minimize IV fluids. Continue Doxy but change to oral to finish 7 day course. Change Rocephin to cefdinir to complete 7 days. Repeat BCx once she has had a few doses of zyvox Zyvox interacts with Elavil. She is on 100mg qhs. Will wean off Elavil. Monitor for interactions Plan for KOLBY to exclude endocarditis and possibly MR of her spine to exclude discitis. (3) Pneumonia due to influenza A virus: Code(s): J10.00 - Influenza due to other identified influenza virus with unspecified type of pneumonia Status: Acute Assessment and Plan: The patient presents with cough and shortness of breath. She tested positive for influenza A Chest CTA 10/01 showed pulmonary opacities likely atypical/viral pneumonia but no PE. Started on Tamiflu, Solu-Medrol and bronchodilators. Abx added 10/05 WBC was higher but felt related to steroids. White count better today Cough persistent as is the pleurtic chest pain MRSA screen positive and Sputum culture growing MRSA BCx growing MRSA. Repeat BCx also positive Patient has bacterial PNA related to her influenza Continue IV antibiotics. Continue CPT Continue PT/OT (4) Influenza A: Code(s): J10.1 - Influenza due to other identified influenza virus with other respiratory manifestations Status: Acute Assessment and Plan: As above. She completed a course of Tamiflu (5) Chest pain: Code(s): R07.9 - Chest pain, unspecified Status: Acute Assessment and Plan: Patieint present with chest pain. Troponin was 0.042 before trending down. EKG showing sinus tachycardia and diffuse ST-T wave changes but no change on repeat. Echo showing with EF >70% and hypertrophy at the apex. No right to left shunt. Cardiology consulted and appreciate their input. [place] elevated Trop most likely type 2 infarction. Still having chest pain felt related to musculoskeletal pain. PE ruled out (6) Elevated troponin: Code(s): R79.89 - Other specified abnormal findings of blood chemistry Status: Acute Assessment and Plan: As above (7) Dehydration: Code(s): E86.0 - Dehydration Status: Acute Assessment and Plan: Stable. Renal function is normal. (8) Asthma: Code(s)
[2023-10-10 14:58] LABS: Alveolar/Arterial O2 Gradient 331.5 mmHg; Fractional Inspired Oxygen 60 %; HCO3 ABG 21.3 mEq/l (22.0-26.0); Oxygen Content ABG 18.3 %vol (16.0-22.0); Oxygen Saturation ABG 94.2 % (95.0-100.0); Oxyhemoglobin 92.3 % THb (90.0-100.0); PCO2 ABG 29.2 mmHg (35.0-45.0); PO2 ABG 64.2 mmHg (80.0-100.0); PO2 FiO2 Ratio Arterial Blood 1.07 %; Total Hemoglobin 14.1 g/dL (12.0-18.0); pH ABG 7.481 (7.350-7.450)
[2023-10-10 14:59] LABS: Device NON-INVASIVE VENT; Modified Allen's Test Pass; Site Drawn LEFT RADIAL
[2023-10-10 15:00] LABS: Non-Invasive Expiratory Pressure 6 CMH2O; Non-Invasive Inspiratory Pressure 12 CMH2O; Non-Invasive Vent Rate 12 /MIN
[2023-10-10] MEDS: LINEZOLID 600 MG/300 ML 600 MG/300 ML SOLN 300 MG IVPB (16:19)
[2023-10-10] MEDS: AMITRIPTYLINE HCL 25 MG TABLET 50 MG PO (22:02)
[2023-10-10] MEDS: DOXYCYCLINE HYCLATE 100 MG TABLET PO (22:03)
[2023-10-10] MEDS: CEFDINIR 300 MG CAPSULE PO (22:03)
[2023-10-10] MEDS: LATANOPROST 0.005% OP SOLN 2.5 ML BTL 1 DROP EACH EYE (22:11)
[2023-10-11] VITALS (29 sets, daily range): BP systolic 94–119; BP diastolic 45–92; PULSE 92–115; RESP 20–32; TEMP 36.4–37.2; O2SAT 90–98; BMI 27.5
[2023-10-11] MEDS: IPRATROPIUM 0.5 MG/ALBUTEROL SULFATE 2.5 MG AMPUL.NEB 3 ML INHALATION ×4 (02:00→19:20)
[2023-10-11] MEDS: ACETAMINOPHEN 325 MG TABLET 650 MG PO ×2 (02:30→15:46)
[2023-10-11 04:28] LABS: Appearance Urine Clear (Clear); Bilirubin Urine Negative (Negative); Blood Urine Negative (Negative); Color Urine Yellow (Yellow); Glucose Urine UA Negative (Negative); Ketones Urine Negative (Negative); Leukocyte Esterase Ur Negative LEU/UL (Negative); Nitrate Urine Negative (Negative); Protein Urine Negative (Negative); Specific Grav Ur 1.017 (1.001-1.035); Urobilinogen Urine 0.2 mg/dL (<2.0)
[2023-10-11 05:00] LABS: Basophils Percent Auto 0.1 % (0.2-1.2); Eosinophils Absolute Auto 0.3 K/mm3 (0-0.3); Eosinophils Percent Auto 1.4 % (0-4.4); Hematocrit 39.9 % (37.0-47.0); Hemoglobin 13.3 g/dL (12.0-15.0); Immature Granulocyte Absolute 3.12 K/mm3 (0.00-0.031); Immature Granulocyte Percent A 15.8 % (0-0.5); Immature Platelet Fraction Pct 8.4 % (0.9-11.2); Lymphocytes Absolute Auto 0.97 K/mm3 (0.9-3.2); Lymphocytes Percent Auto 4.9 % (18.3-44.2); Mean Corpuscular HGB Conc 33.3 g/dl (32-36); Mean Corpuscular Hemoglobin 32.8 pg (26-34); Mean Corpuscular Volume 98.5 fl (80-100); Mean Platelet Volume 11.1 fl (7.4-10.4); Monocytes Absolute Auto 0.8 K/mm3 (0.1-0.6); Monocytes Percent Auto 4.2 % (2.6-8.5); Neutrophils Absolute Auto 14.5 K/mm3 (1.3-6.7); Neutrophils Percent Auto 73.6 % (45.5-73.1); Platelet Count Result 137 k/mm3 (150-375); Red Blood Count 4.05 M/mm3 (4.2-5.4); Red Cell Distribution Width 14.2 % (11.5-14.5); White Blood Count 19.7 K/mm3 (4.5-10.0)
[2023-10-11 05:14] LABS: Alanine Aminotransferase 44 U/L (6-35); Albumin Level 2.7 g/dL (3.5-5.1); Alkaline Phosphatase 226 U/L (38-126); Anion Gap 5 mmol/L (8-16); Aspartate Amino Transferase 24 U/L (14-36); Bilirubin,Total 0.8 mg/dL (0.2-1.3); Blood Urea Nitrogen 9 mg/dL (7-17); Calcium 9.3 mg/dL (8.4-10.2); Carbon Dioxide 25 mmol/L (22-30); Chloride 100 mmol/L (98-107); Estimated CRCL calculation 58 ml/min; Estimated Glomerular Filt Rate > 60; Glucose 79 mg/dL (65-110); Magnesium 1.7 mg/dL (1.6-2.3); Phosphorus 3.2 mg/dL (2.5-4.5); Potassium 2.9 mmol/L (3.4-5.0); Sodium 130 mmol/L (137-145)
[2023-10-11 05:20] LABS: Add Urine Microscopic? NO
[2023-10-11] MEDS: LINEZOLID 600 MG/300 ML 600 MG/300 ML SOLN 300 MG IVPB ×2 (06:15→17:07)
[2023-10-11] MEDS: DOXYCYCLINE HYCLATE 100 MG TABLET PO ×2 (08:41→20:34)
[2023-10-11] MEDS: FUROSEMIDE 40 MG TABLET PO (08:41)
[2023-10-11] MEDS: ENOXAPARIN 40 MG/0.4 ML SYRINGE SUB-Q (08:41)
[2023-10-11] MEDS: PANTOPRAZOLE 40 MG TABLET PO (08:41)
[2023-10-11] MEDS: ONDANSETRON INJ 4 MG/2 ML VIAL IV PUSH (08:41)
[2023-10-11] MEDS: TOPIRAMATE 100 MG TABLET PO ×2 (08:41→17:07)
[2023-10-11] MEDS: guaiFENesin 12 HR 600 MG TABCR PO ×2 (08:41→20:31)
[2023-10-11] MEDS: MAGNESIUM SULF 2 GM/WATER 50ML 2 GM/50 ML BAG IVPB (08:41)
[2023-10-11] MEDS: CEFDINIR 300 MG CAPSULE PO ×2 (08:41→20:31)
[2023-10-11] MEDS: LOTEPREDNOL ETABONATE 0.5% OPH 5 ML BOTTLE 1 DROP EACH EYE ×2 (08:42→17:07)
[2023-10-11] MEDS: FLUTICASONE/SALMETEROL 115-21 MCG INHALER 1 PUFF 2 PUFF INHALATION ×2 (09:09→19:20)
[2023-10-11] MEDS: POTASSIUM CHLORIDE INJ 40 MEQ in SODIUM CHLORIDE 0.9% IV 500 ML 130 MEQ IVPB (10:01)
[2023-10-11] MEDS: SODIUM CHLORIDE 0.9% IV 100 ML 25 ML (10:01)
--- NOTE | 2023-10-11 14:03 | ECG_ITS ---
Measurements Intervals [place] Rate: 114 P: 17 [place]: 201 QRS: 58 QRSD: 94 T: 251 QT: 363 QTc: 501 Interpretive Statements SINUS TACHYCARDIA ST DEVIATION AND MODERATE T-WAVE ABNORMALITY, CONSIDER ANTEROLATERAL ISCHEMIA [-0.1+ mV T WAVE IN V3-V6] ST DEVIATION AND MODERATE T-WAVE ABNORMALITY, CONSIDER INFERIOR ISCHEMIA [-0.1+ mV T WAVE IN II/aVF] COMPARED TO ECG 10/01/2023 21:01:10 SINUS TACHYCARDIA NOW PRESENT Electronically Signed On 10-11-2023 14:49:44 NEONATAL DOCTOR by Vanita Barry M.D.
--- NOTE | 2023-10-11 14:22 | PM.IMPN ---
Progress Note: A&P Assessment and Plan (1) Chest pain: Code(s): R07.9 - Chest pain, unspecified Status: Acute Assessment and Plan: Patieint present with chest pain. Troponin was 0.042 before trending down. EKG showing sinus tachycardia and diffuse ST-T wave changes but no change on repeat. CTA negative for PE. Echo showing with EF >70% and hypertrophy at the apex. No right to left shunt. No vegetations. Cardiology consulted and appreciate their input. [place] elevated Trop most likely type 2 infarction. Still having pleuritic chest pain but today having burning CP that radiates to the left arm with exertion. This may be part of her chronic angina Repeat Trop, EKG. Add NTG prn (2) Acute respiratory failure: Code(s): J96.00 - Acute respiratory failure, unspecified whether with hypoxia or hypercapnia Status: Acute Assessment and Plan: Patient's condition worsened overnight (10/05-10/06). She was on 1-2 L of oxygen during day but developed worsening hypoxia requiring BiPAP support. She tolerated BiPAP well. ABG showing 7.49/26/54 on high-flow nasal cannula at 7 L, 50% FiO2. Repeat ABG showed improvement in the hypoxia on bipap. CXR showed more consolidation in the lower lobes suggestive of developing pneumonia verses atelectasis. Etiology related to bacterial superinfection with pneumonia. Antibiotics were already started Chest CTA negative for PE on admission and on Lovenox since she was hospitalized. Doppler LE negative for DVT MBS okay. CTA chest 10/10 showing worsening diffuse lung disease c/w PNA +/- pulmonary edema but no PE Clinical conditioned worsened 10/10. ABG okay. Gave Lasix IV with good response. Minimize fluid intake. CT Abd/pelvis 10/10 showed no acute findings. Sputum positive for MRSA; BCx positive for MRSA on 10/06 and 10/08 Vanco stopped and Linezolid started 10/10/23 Continue treatment with bronchodilators and antibiotics. Steroids stopped Wean oxygen as tolerated. Continue IV Lasix as BP allows. (3) Septicemia: Code(s): A41.9 - Sepsis, unspecified organism Status: Acute Assessment and Plan: Present on admission with tachycardia and leukocytosis related to influenza A and subsequent MRSA bacteremia and PNA. BCx 10/06 positive for MRSA Sputum Cx 10/05 positive for MRSA Repeat BCx 10/08 positive for MRSA Discussed with advisor advocate angel co founder. Minimize IV fluids. Completing a course of doxycycline and Rocephin/Cefdinir. Changed Vanco to Zyvox on 10/10. WBC worse today but no fevers and feels better today. Repeat BCx today. Zyvox interacts with Elavil. She is on 100mg qhs. Will continue to wean off Elavil. Monitor for interactions Plan for KOLBY to exclude endocarditis Consider MR of her spine to exclude discitis. (4) Pneumonia due to influenza A virus: Code(s): J10.00 - Influenza due to other identified influenza virus with unspecified type of pneumonia Status: Acute Assessment and Plan: The patient presents with cough and shortness of breath. She tested positive for influenza A Chest CTA 10/01 showed pulmonary opacities likely atypical/viral pneumonia but no PE. Started on Tamiflu, Solu-Medrol and bronchodilators. Abx added 10/05 Cough persistent as is the pleuritic chest pain Has MRSA PNA and septicemia. Completed Tamiflu Continue IV antibiotics. Continue CPT (5) Influenza A: Code(s): J10.1 - Influenza due to other identified influenza virus with other respiratory manifestations Status: Acute Assessment and Plan: As above. She completed a course of Tamiflu (6) Elevated troponin: Code(s): R79.89 - Other specified abnormal findings of blood chemistry Status: Acute Assessment and Plan: As above (7) Dehydration: Code(s): E86.0 - Dehydration Status: Acute Assessment and Plan: Stable. Renal function is normal. (8) Asthma: Code(s): J45.909 - Unspecified asthma, un
[2023-10-11 15:49] LABS: Troponin I 0.047 ng/mL (0.000-0.034)
[2023-10-11 19:08] LABS: Troponin I 0.062 ng/mL (0.000-0.034)
[2023-10-11] MEDS: AMITRIPTYLINE HCL 25 MG TABLET 50 MG PO (20:33)
[2023-10-11 21:05] LABS: Troponin I 0.064 ng/mL (0.000-0.034)
[2023-10-11] MEDS: LATANOPROST 0.005% OP SOLN 2.5 ML BTL 1 DROP EACH EYE (23:29)
[2023-10-12] VITALS (37 sets, daily range): BP systolic 83–129; BP diastolic 50–71; PULSE 94–165; RESP 20–35; TEMP 36.4–38.7; O2SAT 91–99
[2023-10-12] MEDS: IPRATROPIUM 0.5 MG/ALBUTEROL SULFATE 2.5 MG AMPUL.NEB 3 ML INHALATION ×3 (01:06→13:21)
[2023-10-12] MEDS: LINEZOLID 600 MG/300 ML 600 MG/300 ML SOLN 300 MG IVPB ×2 (05:26→20:56)
[2023-10-12 05:32] LABS: Hemoglobin 12.5 g/dL (12.0-15.0); Mean Corpuscular HGB Conc 32.9 g/dl (32-36); Mean Corpuscular Volume 100.3 fl (80-100); Mean Platelet Volume 11.3 fl (7.4-10.4); Platelet Count Result 117 k/mm3 (150-375); Red Blood Count 3.79 M/mm3 (4.2-5.4); Red Cell Distribution Width 14.4 % (11.5-14.5); White Blood Count 18.9 K/mm3 (4.5-10.0)
[2023-10-12] MEDS: ACETAMINOPHEN 325 MG TABLET 650 MG PO (05:40)
[2023-10-12 06:17] LABS: SPREG INTERNAL CONTROL Positive; Serum Qual hCG Negative
[2023-10-12 06:33] LABS: Alanine Aminotransferase 28 U/L (6-35); Albumin Level 2.6 g/dL (3.5-5.1); Alkaline Phosphatase 208 U/L (38-126); Anion Gap 6 mmol/L (8-16); Aspartate Amino Transferase 20 U/L (14-36); Bilirubin,Total 0.6 mg/dL (0.2-1.3); Blood Urea Nitrogen 6 mg/dL (7-17); Carbon Dioxide 26 mmol/L (22-30); Chloride 101 mmol/L (98-107); Estimated CRCL calculation 56 ml/min; Estimated Glomerular Filt Rate > 60; Glucose 80 mg/dL (65-110); Magnesium 1.8 mg/dL (1.6-2.3); Phosphorus 3.4 mg/dL (2.5-4.5); Potassium 2.8 mmol/L (3.4-5.0); Sodium 133 mmol/L (137-145)
[2023-10-12 06:40] LABS: Band Neutrophils Percent 5 % (0-6); Eosinophils Absolute Manual 0.18 K/mm3 (0.02-0.5); Eosinophils Percent Manual 1 % (0-4); Lymphocytes Absolute Manual 1.32 K/mm3 (1.1-4.5); Metamyelocytes Percent 1 %; Monocytes Percent Manual 9 % (3-9); Myelocytes Percent 1 %; Neutrophils Percent Manual 76 % (46-73); Schistocytes None Seen (NORMAL); Total Cells Counted 100
[2023-10-12] MEDS: POTASSIUM CHLORIDE INJ 40 MEQ in SODIUM CHLORIDE 0.9% IV 500 ML 130 MEQ IVPB (07:58)
[2023-10-12] MEDS: guaiFENesin 12 HR 600 MG TABCR PO (08:11)
[2023-10-12] MEDS: FUROSEMIDE INJ 40 MG/4 ML VIAL IV PUSH (08:11)
[2023-10-12] MEDS: PANTOPRAZOLE 40 MG TABLET PO (08:11)
[2023-10-12] MEDS: DOXYCYCLINE HYCLATE 100 MG TABLET PO (08:12)
[2023-10-12] MEDS: TOPIRAMATE 100 MG TABLET PO ×2 (08:12→18:05)
[2023-10-12] MEDS: LOTEPREDNOL ETABONATE 0.5% OPH 5 ML BOTTLE 1 DROP EACH EYE ×2 (08:58→18:20)
[2023-10-12] MEDS: FLUTICASONE/SALMETEROL 115-21 MCG INHALER 1 PUFF 2 PUFF INHALATION (09:04)
[2023-10-12 12:15] LABS: Hematocrit 37.9 % (37.0-47.0); Hemoglobin 12.6 g/dL (12.0-15.0); Mean Corpuscular HGB Conc 33.2 g/dl (32-36); Mean Corpuscular Hemoglobin 33.2 pg (26-34); Mean Corpuscular Volume 99.7 fl (80-100); Platelet Count Result 101 k/mm3 (150-375); Red Cell Distribution Width 14.5 % (11.5-14.5); White Blood Count 20.4 K/mm3 (4.5-10.0)
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
[2023-10-12] MEDS: MIDAZOLAM 100MG/NS 100ML(*CRX) 100 MG/100 ML BAG IV CONT (16:15)
--- NOTE | 2023-10-12 16:30 | ECG_ITS ---
Measurements Intervals [place] Rate: 133 P: 34 TN: 130 QRS: 62 QRSD: 101 T: -85 QT: 308 QTc: 458 Interpretive Statements SINUS TACHYCARDIA ST DEVIATION AND MODERATE T-WAVE ABNORMALITY, CONSIDER LATERAL ISCHEMIA [-0.1+ mV T WAVE IN I/aVL/V5/V6] ST DEVIATION AND MODERATE T-WAVE ABNORMALITY, CONSIDER INFERIOR ISCHEMIA [-0.1+ mV T WAVE IN II/aVF] WARNING: DATA QUALITY MAY AFFECT INTERPRETATION COMPARED TO ECG 10/11/2023 14:17:17 NO SIGNIFICANT CHANGES Electronically Signed On 10-13-2023 11:09:20 OFFICE CLERK ROUTINE by Vanita Barry M.D.
--- NOTE | 2023-10-12 16:33 | WPDPROCEDUR ---
Procedures Intubation Intubation Date: 10/12/23 Intubation Time: 15:58 A pre-procedural Time-Out was completed immediately before starting the procedure and confirmed: Patient Identification, Site, Procedure, Patient Position and the Availability of Requisite Equipment: Yes Sedative: etomidate Paralytic: rocuronium Laryngoscope: fiber optic video scope ET tube size: 7.5 Tube secured depth (cm): 22 Tube secured location: lips Tube placement confirmation: visualized tube passing through cords, equal breath sounds bilaterally, no breath sounds over epigastrium and confirmation by capnometry Patient tolerated procedure: well and no complications Intubation complications: none
--- NOTE | 2023-10-12 16:35 | WPDPROCEDUR ---
Procedures Central Line Placement Right IJ: Central Line Date: 10/12/23 Central Line Time: 16:18 Discussed w/ the patient/family/POA,the placement of a central venous catheter, including its clinical necessity/indication & associated potential risks, benifits and alternatives.: Yes The patient/family/POA understand(s) and acknowledge(s) the need to proceed with central venous catheter insertion as an important element of the patient's clinical management.: Yes Consent: I have discussed with the patient and/or surrogate, the non-emergent placement of a central venous catheter, including its clinical necessity/indication and associated potential risks and complications. The patient and/or surrogate understand(s) and acknowledge(s) the need to proceed with central venous catheter insertion as an important element of the patient's clinical management. Time Out Performed: Yes Patient Position: supine Patient placed on monitor/pulse ox: Yes Provider Prep: mask, sterile gown, sterile gloves, Max. sterile barrier precautions, cap and hand hygiene with conventional soap/water or alcohol based hand rub Central line prep: 2% Chlorhexidine scrub Local anesthesia used: lidocaine 1% Amount of anesthesia used (ml): 3 Sterile US Technique with sterile gel/sterile probe covers: Yes Central line lumen inserted: triple [place]: 12 Length (cm): 16 Depth of Insertion (cm): 16 Post Procedure: sutured in place, good blood return, all ports aspirated, flushed, capped, transparent dressing, hemostatic product, antimicrobial product, securement product and aseptic technique maintained throughout procedure Post procedure x-ray: tip of catheter in good position and no pneumothorax seen Patient tolerated procedure: well Complications: none
--- NOTE | 2023-10-12 16:36 | PC.NURSE ---
Patient transferred to ICU 4 from [facility] due to increased work of breathing, increasing O2 need. Dr. Pepe at bedside and discussed the need for elective intubation and central line placement. Patient gave verbal consent. Patient intubated by Dr. Pepe on first attempt at 1600. Right IJ TLC inserted via US by Dr. Pepe at 16:30. Patient now resting comfortably. O2 saturation 100%.
--- NOTE | 2023-10-12 16:39 | WPDCNINT ---
Assessment and Plan Assessment and plan (1) Acute respiratory failure: Code(s): J96.00 - Acute respiratory failure, unspecified whether with hypoxia or hypercapnia Status: Acute Assessment and Plan: Acute respiratory failure likely related to MRSA bacteremia, influenza pneumonia, septic emboli, possible pulmonary edema -patient was in the intermediate Unit alternating between BiPAP and high-flow therapy -increasing oxygen requirements since 10/11/2023, was on 75% FiO2 with 40 L flow rate on high-flow therapy -discussed with the patient regarding intubation to which she was agreeable -10/12: Brought in to the ICU and successfully intubated the patient and placed on mechanical ventilation with a PEEP of 10 and 100% FiO2, low tidal volume strategy -post intubation ABGs pending -post intubation chest x-ray reviewed, ETT was withdrawn 2 cm -continue bronchodilators -sedated with Versed infusion, may add propofol if needed. Will stay away from fentanyl due to risk of serotonin syndrome with linezolid (2) ARDS (adult respiratory distress syndrome): Code(s): J80 - Acute respiratory distress syndrome Status: Acute Assessment and Plan: Currently in ARDS physiology, -have placed patient on low tidal volume strategy, high PEEP -post intubation ABGs reviewed, ventilator adjusted -will sedate patient Versed and maybe add propofol -if she is dyssynchronous with the ventilator may have to Nimbex to paralyzed (3) Bacteremia: Code(s): R78.81 - Bacteremia Status: Acute Assessment and Plan: 10/05/2023: Blood cultures MRSA 10/06/2023: Blood cultures growing MRSA 10/08/2023: Blood cultures growing MRSA Patient initially was on vancomycin but continued to have positive blood cultures, therefore vancomycin was switched to linezolid (10/10) -start cefepime (10/12) for Gram-negative coverage -will obtain CT spine to rule out diskitis -KOLBY to exclude endocarditis, now that the patient is intubated will discuss with Cardiology if they could perform a KOLBY in a.m. -unable to do MRI at this time, as MRI machines at [facility] are not equipped to take intubated patient is on mechanical ventilation (4) Chest pain: Code(s): R07.9 - Chest pain, unspecified Status: Acute Assessment and Plan: Chest pain was thought to be likely related to musculoskeletal or pleuritic in nature -cardiology has been following the patient, do not think that the chest pain and mild elevation her troponins were secondary to ACS or plaque rupture 10/03/2023 echocardiogram 1. Left ventricular chamber dimension is normal. ? 2. Left ventricular systolic function is hyperdynamic, estimated at >70%. ? 3. There is no increased left ventricular wall thickness.? However, there is suggestion of hypertrophy for the apex with a spade-like appearance suggestive of apical predominant hypertrophic cardiomyopathy.? Clinical correlation advised. ? 4. The left ventricular diastolic function is indeterminate. ? 5. Technically difficult study with limited views. ? 6. No evidence for [id number] shunt with injection of agitated saline with or without Valsalva. ? 7. The aortic valve is not well visualized. ? 8. There is no aortic valve stenosis or significant regurgitation. ? 9. There is mild mitral valve regurgitation. ? 10. There is trace tricuspid valve regurgitation. ? 11. No pulmonary hypertension, estimated pulmonary arterial systolic pressure is 22 mmHg. ? 12. Consider cardiac MRI on an outpatient basis if clinically indicated. (5) Cardiomyopathy: Code(s): I42.9 - Cardiomyopathy, unspecified Status: Acute Assessment and Plan: Apical variant hypertrophic cardiomyopathy as mentioned in the echocardiogram above -patient is not in decompensated heart failure at this time not as she have any signs or symptoms suggestive of heart failure/cardiomyopathy. -echocardiogram as above -continue to monitor -patient was on [place]
[2023-10-12 17:04] LABS: Alveolar/Arterial O2 Gradient 507.3 mmHg; Base Excess ABG -5.9 mEq/l (+/-2.0); Fractional Inspired Oxygen 100 %; HCO3 ABG 22.9 mEq/l (22.0-26.0); Oxygen Content ABG 20.5 %vol (16.0-22.0); Oxygen Saturation ABG 98.4 % (95.0-100.0); Oxyhemoglobin 97.2 % THb (90.0-100.0); PCO2 ABG 58.9 mmHg (35.0-45.0); PO2 ABG 146.8 mmHg (80.0-100.0); PO2 FiO2 Ratio Arterial Blood 1.47 %; Total Hemoglobin 14.8 g/dL (12.0-18.0)
[2023-10-12 17:05] LABS: Arterial Blood Gas Ventilator rate 24 /MIN; Device VENTILATOR; Site Drawn LEFT BRACHIAL; pH ABG 7.207 (7.350-7.450)
[2023-10-12 17:06] LABS: Arterial Blood Gas PEEP 10 cmH2O; Arterial Blood Gas Tidal Volume 300 ml; Arterial Blood Gas Vent Mode CMV
[2023-10-12] MEDS: ETOMIDATE 20 MG/10 ML AMPUL IV PUSH (17:14)
[2023-10-12] MEDS: PROPOFOL IV EMULSION 100 ML 3.29 MG IV CONT (17:15)
[2023-10-12] MEDS: ROCURONIUM BROMIDE 50 MG/5 ML VIAL IV PUSH ×2 (17:15→18:41)
--- NOTE | 2023-10-12 17:17 | PM.IMPN ---
Progress Note: A&P Assessment and Plan (1) Acute respiratory failure: Code(s): J96.00 - Acute respiratory failure, unspecified whether with hypoxia or hypercapnia Status: Acute Assessment and Plan: Acute respiratory failure likely related to MRSA bacteremia, influenza pneumonia, septic emboli, possible pulmonary edema -patient was in the intermediate Unit alternating between BiPAP and high-flow therapy -increasing oxygen requirements since 10/11/2023, was on 75% FiO2 with 40 L flow rate on high-flow therapy -discussed with the patient regarding intubation to which she was agreeable -10/12: Brought in to the ICU and successfully intubated the patient and placed on mechanical ventilation with a PEEP of 10 and 100% FiO2 -post intubation ABGs pending -post intubation chest x-ray reviewed, ETT was withdrawn 2 cm -continue bronchodilators -sedated with Versed infusion, may add propofol if needed. Will stay away from fentanyl due to risk of serotonin syndrome with linezolid 10/12/23: Discussed with Dr. 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 - Other specified congenital malformation syndromes, not elsewhere classified; L81.4 - Other melanin hyperpigmentation Status: Acute (7) Rectal bleeding: Code(s): K62.5 - Hemorrhage of anus and rectum Status: Acute (8) Congenital heart disease: Code(s): Q24.9 - Congenital malformation of heart, unspecified Status: Acute (9) ARDS (adult respiratory distress syndrome): Code(s): J80 - Acute respiratory distress syndrome Status: Acute Assessment and Plan: Intubated, 10/12/23 Time Spent With Patient Time with patient: 25 - 35 minutes Subjective Date/time seen: 10/12/23 17:17 Interval history: 43yo female asthma, seizures, CMP and valvular heart disease here for cough and SOB and found to have influenza A Feels better. Less SOB and less cough. Still with chest pain with coughing. Called to the room for patient having burning type CP when doing leg exercises. She does have chronic intermittent CP that she takes NTG at home for. The pain did radiate to the left arm. Better when she rested. Not currently having CP. 10/12/2023: shortness of breath; still feels ill Review of Systems Review of Systems: Twelve systems were reviewed and are negative except for as per HPI. All systems reviewed & are unremarkable except as noted in HPI and below ROS unobtainable: Yes unobtainable due to endotracheal tube and unobtainable due to medical condition Exam Narrative: General: Intubated and sedated HEENT:? Pupils equal and reactive, sclera is clear, ETT in place Neck:? Supple Respiratory:? Coarse breath sounds bilaterally decreased at bases, adequate air entry, no wheezing Cardiac:? Sinus tachycardia Abdomen:? Soft, nontender, nondistended, hypoactive bowel sounds Extremities:? No edema, palpable pedal pulses Neuro:? Patient is intubated and sedated, does not open eyes or follow simple commands at this time (prior to intubation patient was awake, following simple commands and answering to questions) Skin:? Warm and dry Psych:? Unable to assess Objective Data Vital Signs Vital Signs: Vital Signs - 24 hr 10/11/23 18:00 10/11/23 19:38 10/11/23 19:57 Temperature 98.3 F Pulse Rate 108 H 108 H 96 Respiratory Rate 23 H Blood Pressure 119/92 H
[2023-10-12] MEDS: CEFEPIME 2 GM/NS 50 ML 2 GM/50 ML BAG IVPB (18:05)
[2023-10-12] MEDS: ALBUMIN HUMAN 25% 25 GM/100 ML 100 ML IVPB ×2 (18:19→23:22)
[2023-10-12] MEDS: CISATRACURIUM BESYLATE 200 MG in DEXTROSE 5% 80 ML IV CONT (18:42)
[2023-10-12] MEDS: IPRATROPIUM BR 0.02% INH SOLN 0.5 MG/2.5 ML VIAL INHALATION (20:01)
[2023-10-12] MEDS: LEVALBUTEROL NEB 1.25 MG/3 ML 0.63 MG INHALATION (20:01)
[2023-10-12 20:20] LABS: Alveolar/Arterial O2 Gradient 347.3 mmHg; Base Excess ABG -4.4 mEq/l (+/-2.0); Fractional Inspired Oxygen 80 %; HCO3 ABG 23.3 mEq/l (22.0-26.0); Oxygen Content ABG 18.1 %vol (16.0-22.0); Oxygen Saturation ABG 98.8 % (95.0-100.0); Oxyhemoglobin 97.3 % THb (90.0-100.0); PCO2 ABG 54.2 mmHg (35.0-45.0); PO2 ABG 166.2 mmHg (80.0-100.0); PO2 FiO2 Ratio Arterial Blood 2.08 %
[2023-10-12 20:24] LABS: Modified Allen's Test Pass; Site Drawn RIGHT RADIAL; pH ABG 7.252 (7.350-7.450)
[2023-10-12 20:25] LABS: Arterial Blood Gas PEEP 10 cmH2O; Arterial Blood Gas Tidal Volume 300 ml; Arterial Blood Gas Vent Mode CMV; Arterial Blood Gas Ventilator rate 26 /MIN; Device VENTILATOR
[2023-10-12] MEDS: LATANOPROST 0.005% OP SOLN 2.5 ML BTL 1 DROP EACH EYE (20:58)
[2023-10-12] MEDS: MINERAL OIL/WHITE PETROLATUM OINTMENT 1 APPLIC EACH EYE (21:05)
[2023-10-12] MEDS: CENTRAL LINE FLUSH 10 ML IV PUSH (21:54)
[2023-10-13] VITALS (40 sets, daily range): BP systolic 99–150; BP diastolic 62–99; PULSE 92–121; RESP 26; TEMP 36.4–38.1; O2SAT 94–100; BMI 23.6
[2023-10-13] MEDS: PROPOFOL IV EMULSION 100 ML 11.53 MG IV CONT ×2 (00:35→18:55)
[2023-10-13] MEDS: IPRATROPIUM BR 0.02% INH SOLN 0.5 MG/2.5 ML VIAL INHALATION ×4 (02:04→20:52)
[2023-10-13] MEDS: LEVALBUTEROL NEB 1.25 MG/3 ML 0.63 MG INHALATION ×4 (02:04→20:52)
[2023-10-13] MEDS: CEFEPIME 2 GM/NS 50 ML 2 GM/50 ML BAG IVPB ×2 (04:22→16:23)
[2023-10-13 04:28] LABS: Hematocrit 36.8 % (37.0-47.0); Hemoglobin 11.4 g/dL (12.0-15.0); Immature Platelet Fraction Pct 11.1 % (0.9-11.2); Mean Corpuscular Hemoglobin 32.8 pg (26-34); Mean Corpuscular Volume 105.7 fl (80-100); Mean Platelet Volume 11.4 fl (7.4-10.4); Platelet Count Result 61 k/mm3 (150-375); Red Blood Count 3.48 M/mm3 (4.2-5.4); Red Cell Distribution Width 14.9 % (11.5-14.5); White Blood Count 15.8 K/mm3 (4.5-10.0)
[2023-10-13 04:37] LABS: INR 1.2; Lactic Acid Reflex 0.8 mmol/L (0.7-2.0); Prothrombin Time 16.4 Seconds (11.1-14.7)
[2023-10-13 04:38] LABS: Partial Thromboplastin Time 45.5 SECONDS (22.3-36.8)
[2023-10-13 04:41] LABS: Alanine Aminotransferase 17 U/L (6-35); Albumin Level 3.1 g/dL (3.5-5.1); Alkaline Phosphatase 181 U/L (38-126); Anion Gap 5 mmol/L (8-16); Aspartate Amino Transferase 19 U/L (14-36); Bilirubin,Total 0.4 mg/dL (0.2-1.3); Blood Urea Nitrogen 9 mg/dL (7-17); Calcium 8.6 mg/dL (8.4-10.2); Carbon Dioxide 29 mmol/L (22-30); Chloride 101 mmol/L (98-107); Estimated CRCL calculation 63 ml/min; Estimated Glomerular Filt Rate > 60; Glucose 94 mg/dL (65-110); Magnesium 1.8 mg/dL (1.6-2.3); Phosphorus 6.1 mg/dL (2.5-4.5); Potassium 3.4 mmol/L (3.4-5.0); Sodium 135 mmol/L (137-145); Triglycerides 140 mg/dL (<150)
[2023-10-13 05:17] LABS: Alveolar/Arterial O2 Gradient 226.5 mmHg; Base Excess ABG -3.7 mEq/l (+/-2.0); Carboxyhemoglobin 0.3 % THb (0-2.0); Fractional Inspired Oxygen 60 %; HCO3 ABG 25.1 mEq/l (22.0-26.0); Methemoglobin ABG 0.4 %THb (0-1.5); Oxygen Content ABG 16.9 %vol (16.0-22.0); Oxygen Saturation ABG 97.9 % (95.0-100.0); PO2 ABG 130.5 mmHg (80.0-100.0); PO2 FiO2 Ratio Arterial Blood 2.17 %; Reduced Hemoglobin 2.3 %THb (0-5.0); Total Hemoglobin 12.2 g/dL (12.0-18.0)
[2023-10-13 05:20] LABS: CRP 38.8 mg/dL (<1.0)
[2023-10-13 05:21] LABS: pH ABG 7.209 (7.350-7.450)
[2023-10-13 05:22] LABS: Arterial Blood Gas PEEP 10 cmH2O; Arterial Blood Gas Vent Mode CMV; Arterial Blood Gas Ventilator rate 26 /MIN; Device VENTILATOR; Modified Allen's Test Pass; PCO2 ABG 64.4 mmHg (35.0-45.0); Site Drawn RIGHT RADIAL
[2023-10-13 05:23] LABS: Arterial Blood Gas Tidal Volume 300 ml
[2023-10-13 05:32] LABS: Atypical Lymphocytes Present; Band Neutrophils Percent 5 % (0-6); Eosinophils Absolute Manual 0.15 K/mm3 (0.02-0.5); Eosinophils Percent Manual 1 % (0-4); Lymphocytes Absolute Manual 2.84 K/mm3 (1.1-4.5); Monocytes Absolute Manual 0.47 K/mm3 (0.1-0.90); Monocytes Percent Manual 3 % (3-9); Neutrophils Absolute Manual 12.32 K/mm3 (1.7-7.2); Neutrophils Percent Manual 73 % (46-73); Platelet Estimate Decreased (Adequate); Schistocytes Rare (NORMAL); Total Cells Counted 100
[2023-10-13 05:33] LABS: Macrocytosis 1+ (NORMAL)
[2023-10-13] MEDS: ALBUMIN HUMAN 25% 25 GM/100 ML 100 ML IVPB ×2 (06:19→12:23)
[2023-10-13] MEDS: MIDAZOLAM 100MG/NS 100ML(*CRX) 100 MG/100 ML BAG 6 MG IV CONT (06:29)
[2023-10-13] MEDS: CENTRAL LINE FLUSH 10 ML IV PUSH ×3 (06:29→20:32)
[2023-10-13 08:06] LABS: Mean Platelet Volume 10.3 fl (7.4-10.4); Platelet Count Result 56 k/mm3 (150-375)
[2023-10-13 08:14] LABS: Magnesium 1.8 mg/dL (1.6-2.3)
[2023-10-13] MEDS: KCL 40 MEQ/WATER 100 ML 100 ML 25 ML IVPB (08:14)
[2023-10-13 08:21] LABS: INR 1.2; Prothrombin Time 16.3 Seconds (11.1-14.7)
[2023-10-13] MEDS: MAGNESIUM SULF 2 GM/WATER 50ML 2 GM/50 ML BAG IVPB (08:21)
[2023-10-13 08:22] LABS: Partial Thromboplastin Time 47.4 SECONDS (22.3-36.8)
[2023-10-13 08:23] LABS: Fibrinogen 570 mg/dl (215-510)
[2023-10-13] MEDS: LOTEPREDNOL ETABONATE 0.5% OPH 5 ML BOTTLE 1 DROP EACH EYE ×2 (08:26→16:25)
[2023-10-13] MEDS: MINERAL OIL/WHITE PETROLATUM OINTMENT 1 APPLIC EACH EYE ×2 (08:27→20:32)
[2023-10-13 08:38] LABS: D Dimer 4.07 ug/mL (<0.48)
--- NOTE | 2023-10-13 09:02 | PM.PNCARD ---
Progress Note: A&P Assessment and Plan (1) MRSA bacteremia: Code(s): R78.81 - Bacteremia; B95.62 - Methicillin resistant Staphylococcus aureus infection as the cause of diseases classified elsewhere Status: Acute Assessment and Plan: Patient has had persistently positive blood cultures for MRSA and there was concern for endocarditis. --KOLBY today --patient sign consent for this yesterday (2) Bicuspid aortic valve: Code(s): Q23.1 - Congenital insufficiency of aortic valve Status: Acute Assessment and Plan: Has a bicuspid aortic valve, with no evidence of stenosis or significant regurgitation by echo on admission, but is a risk factor for SBE. (3) Elevated troponin: Code(s): R79.89 - Other specified abnormal findings of blood chemistry Status: Acute Assessment and Plan: Type 2 infarction secondary to acute hypoxic illness with influenza A. Outpatient follow up with her primary wildland fire fighter. (4) Pneumonia due to influenza A virus: Code(s): J10.00 - Influenza due to other identified influenza virus with unspecified type of pneumonia Status: Acute Assessment and Plan: Has developed ARDS and was intubated 10/12/2023. Management as per primary team. (5) Congenital heart disease: Code(s): Q24.9 - Congenital malformation of heart, unspecified Status: Acute Assessment and Plan: As above, history of surgically corrected secundum ASD, history of bicuspid aortic valve without history of repair thus far.? (6) Cardiomyopathy: Code(s): I42.9 - Cardiomyopathy, unspecified Status: Acute Assessment and Plan: Apical variant hypertrophic cardiomyopathy for 2012.? Patient is not in decompensated heart failure nor significant signs or symptoms suggestive of severe or significant LV dysfunction at this time.? Outpatient follow up with her primary wildland fire fighter. 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 Admitted with influenza A on 10/01/2023. ?Had some atypical noncardiac chest pain. Also has MRSA bacteremia with persistently positive blood cultures. She is followed at [facility] by Dr. De Jesus for cardiovascular care.? Date of service 10/04: Reports pain in her throat. No shortness of breath. No chest pain. Date of service 10/13/2023: Patient was scheduled for KOLBY yesterday but had worsening respiratory failure requiring transfer to ICU and intubation for ARDS. Cefepime was added to her antibiotics. She is sedated. She is not requiring any pressors. Review of Systems Review of Systems: Review of systems obtained from EMR and the patient's nurse. ROS unobtainable: Yes unobtainable due to endotracheal tube, unobtainable due to medical condition and unobtainable due to mental status Exam Const: General: comfortable; No healthy appearing or confusion Orientation/consciousness: oriented to person, patient oriented x3 and No confusion Other: Patient is intubated and sedated. She has an OG tube in place as well. HENMT: Mouth: Yes moist mucous membranes Eyes: General: appearance normal, both eyes and all related structures Pupils: pupils not ERRL Other: Left pupil larger than right, going to get a stat CT scan at this moment. Neck: Neck: supple Resp: Effort & Inspection: [place]
--- NOTE | 2023-10-13 09:16 | WPDMODSED ---
Moderate Sedation Note-Pt Data Patient Data Diagnosis: Persistently positive blood cultures for MRSA, r/o SBE Bicuspid aortic valve Influenza A, ARDS, respiratory failure HOCM Present Complaint: Persistently positive blood cultures for MRSA, Bicuspid aortic valve, r/o SBE Procedure to be performed/Plan: Consious sedation KOLBY Allergies Allergy/AdvReac Type Severity Reaction Status Date / Time No Known Allergies Allergy Mild Verified 02/14/17 13:06 Home Medications Medication Instructions Recorded Confirmed Type albuterol sulfate 2.5 mg/3 mL 2.5 mg continuous nebulization PRN 10/01/23 10/01/23 History (0.083 %) solution for nebulization PRN SOB albuterol sulfate 90 mcg/actuation 90 mcg inhalation 4-6XD PRN sob 10/01/23 10/01/23 History aerosol inhaler amitriptyline 100 mg tablet 100 mg PO QHS sleep 10/01/23 10/01/23 History budesonide-formoterol HFA 160 2 puff inhalation BID 10/01/23 10/01/23 History mcg-4.5 mcg/actuation aerosol inhaler (Symbicort) fppaljsxqr-soipoxxnkhkcn-lpdpyzgd 1 tablet PO Q6H PRN Headache 10/01/23 10/01/23 History 50 mg-325 mg-40 mg tablet calcium carbonate 600 mg-vitamin 1 tablet PO BID 10/01/23 10/01/23 History D3 10 mcg (400 unit) tablet furosemide 40 mg tablet 40 mg PO DAILY 10/01/23 10/01/23 History latanoprost 0.005 % eye drops 1 drp EACH EYE QHS Glaucoma 10/01/23 10/01/23 History loteprednol etabonate 0.5 % eye 1 drp EACH EYE BID 10/01/23 10/01/23 History drops,suspension methocarbamol 500 mg tablet 500 mg PO Q8H muscle relaxer 10/01/23 10/01/23 History rimegepant 75 mg disintegrating 75 mg PO PRN PRN Migraine Headache 10/01/23 10/01/23 History tablet (Nurtec ODT) sumatriptan succinate 100 mg tablet 100 mg PO DAILY PRN Headache 10/01/23 10/01/23 History topiramate 100 mg tablet 100 mg PO BID 10/01/23 10/01/23 History umeclidinium 62.5 mcg/actuation 1 inh inhalation DAILY sob 10/01/23 10/01/23 History blister powder for inhalation (Incruse Ellipta) verapamil 180 mg tablet,extended 180 mg PO DAILY 10/01/23 10/01/23 History release Current Medications: Active Medications Acetaminophen (Acetaminophen Elixir 325 Mg/10.15 Ml Udc) 650 mg PO Q6H PRN PRN Reason: Mild Pain (1-3) or Fever Dextrose (Dextrose 50% 25 Gm/50 Ml Syringe) 12.5 gm IV PUSH PRN PRN; Protocol PRN Reason: Hypoglycemia Glucagon (Glucagon For Inj 1 Mg Vial) 1 mg IM PRN PRN; Protocol PRN Reason: Hypoglycemia Glucose (Glucose Oral Gel 15 Gm Of Glucse In 37.5 Gm Tube) 15 gm PO PRN PRN; Protocol PRN Reason: Hypoglycemia Cefepime HCl (Maxipime 2 Gm/Ns 50 Ml) 2 gm in 50 mls @ 100 mls/hr IVPB Q12H [facility] Last Infusion: 10/13/23 05:09 Dose: Infused Midazolam HCl (Versed 100 Mg/Ns 100 Ml) 100 mg in 100 mls @ 6 mls/hr IV CONT .[id number] [facility]IN; Protocol Last Admin: 10/13/23 06:29 Dose: 6 mg/hr, 6 mls/hr Propofol (Diprivan) 100 mls @ 11.529 mls/hr IV CONT .Q8H41M [facility]IN; Protocol Last Admin: 10/13/23 00:35 Dose: 35 mcg/kg/min, 11.53 mls/hr Albumin Human (Albutein) 100 mls @ 60 mls/hr IVPB Q6HR [facility] Stop: 10/13/23 13:39 Last Admin: 10/13/23 06:19 Dose: 60 mls/hr Cisatracurium Besylate 200 mg/ (Dextrose) 100 mls @ 4.118 mls/hr IV CONT .[id number] [facility]; Protocol Last Titration: 10/13/23 06:30 Dose: 2.5 mcg/kg/min, 4.12 mls/hr Linezolid (Zyvox) 600 mg in 300 mls @ 300 mls/hr IVPB Q12H [facility] Potassium Chloride (Kcl 40 Meq/Water 100 Ml) 100 mls @ 25 mls/hr IVPB ONCE ONE Stop: 10/13/23 11:59 Last Admin: 10/13/23 08:14 Dose: 25 mls/hr Dextrose (Dextrose 5% 1,000 Ml) 1,000 mls @ 100 mls/hr IVPB PRN PRN; Protocol PRN Reason: Hypoglycemia Insulin Aspart (Insulin Aspart (*Bkc) 100 Units/Ml) 2 - 5 units SUB-Q Q6HR [facility]IN; Protocol Ipratropium [place] (Ipratropium Br 0.02% Inh Soln 0.5 Mg/2.5 Ml Vial) 0.5 mg INHALATION Q6HRT [facility] Last Admin: 10/13/23 08:40 Dose: 0.5 mg Latanoprost (Latanoprost 0.005% Op Soln 2.5 Ml Btl) 1 drop EACH EYE QHS [facility] Last Admin: 10/12/23 20:58 Dose: 1 drop
[2023-10-13] MEDS: PANTOPRAZOLE SODIUM IV 40 MG VIAL IV PUSH (09:53)
[2023-10-13] MEDS: LINEZOLID 600 MG/300 ML 600 MG/300 ML SOLN 300 MG IVPB ×2 (09:53→20:31)
[2023-10-13] MEDS: CISATRACURIUM BESYLATE 200 MG in DEXTROSE 5% 80 ML IV CONT (10:00)
--- NOTE | 2023-10-13 10:08 | WPDHPUPDATE1 ---
History and Physical Update Update Date/Time: 10/13/23 10:08 History and Physical has been reviewed, including an updated exam of the patient. CT showed one or perhaps 2 new/recent strokes. Possibly embolic strokes fr SBE? Discussed w/ Dr. Pepe, will go ahead w/ KOLBY. Risks, benefits, and alternatives have been discussed and questions answered. Patient agrees to proceed with procedure.
--- NOTE | 2023-10-13 10:42 | PM.OP ---
Procedure Note - Brief Procedure Note - Brief Date of procedure: 10/13/23 MRSA bacteremia, history of bicuspid valve, rule out SBE Post-op diagnosis: Other (SP EF of the mitral valve) Procedure performed: Transesophageal echo Surgeon: Zaida Regalado MD Findings: Two vegetations seen on the mitral valve with trace to mild eccentric mitral regurgitation. Mildly bicuspid aortic valve, normal function Filamentous mobile masses seen on the tricuspid valve, probably associated with the catheter tip, possible vegetations, thrombus, fibrin etc. Normal left ventricular systolic function Description of procedure: Uneventful KOLBY procedure Urine output (mL): 550
--- NOTE | 2023-10-13 10:45 | P.PCNTEE_ITS ---
KOLBY TransEsophageal Echocardiogram Date of procedure: 10/13/23 Procedure Type: Transesophageal echo Diagnosis: Persistently MRSA bacteremia, history of bicuspid aortic valve, recent stroke, rule at [facility] Indications: 43-year-old female admitted with influenza who has developed ARDS and is now intubated. She also has had persistently positive blood cultures for MRSA. History of secundum ASD closure, bicuspid valve, apical hypertrophic cardiomyopathy, and she was discovered this morning to have 1-2 acute/subacute strokes. KOLBY is being performed to evaluate for endocarditis. Image Quality: Good Findings: Sedation: The patient is already sedated and intubated in the intensive care unit. Procedure: After informed consent the transesophageal echo probe was introduced in the esophagus without difficulty. Imaging was obtained in multiplane views. The patient tolerated the procedure well with no complications. Findings: The left atrium was mildly enlarged. There is no thrombus present in the left atrium or left atrial appendage. The atrial septum appeared intact. Mitral valve appeared thickened. There was a 7 X 5 mm tear-shaped mobile vegetation noted on the lateral aspect of the valve. On the medial aspect there was a 4 X 4 mm round mobile mass associated with some filamentous highly mobile structures noted as well. The left ventricle had had normal size with left ventricular hypertrophy and good contractility of all segments. It did not appear particularly spade-shaped, as previously seen (h/o apical HOCM). The ejection fraction is estimated to be: 55-60%. The aortic root was normal. The aortic valve was assymetric with the right coronary cusp being small. The left and noncoronary aortic valve cusps were very minimally fused at their base creating an atypical and minimally bicuspid valve structure. There was some thickening of the leaflets but no vegetations were noted. The ascending aorta, aortic arch and descending thoracic aorta were normal. The tricuspid valve was perhaps a little thickened but no definite vegetation was seen. However there were mobile filamentous masses noted in the left atrium near the valve. It was difficult to discern the attachments but more likely to be associated with the catheter in the right atrium rather than the tricuspid valve. The right atrium, right ventricle, pulmonic valve and pulmonic artery were all normal. There is no pericardial effusion. Colorflow Doppler Findings: Trace to mild eccentric mitral regurgitation, no evidence of significant aortic valve regurgitation or stenosis. Conclusions: Mitral valve endocarditis with 2 vegetations noted as described above. Trace to mild mitral regurgitation. Mobile filamentous masses associated with the right atrial catheter. Moderate left ventricular hypertrophy Normal left ventricular systolic function, EF 55-60% Asymmetric and minimally bicuspid aortic valve.
[2023-10-13] MEDS: TOPIRAMATE 100 MG TABLET PO ×2 (11:13→16:25)
--- NOTE | 2023-10-13 11:19 | WPDINTPN ---
Progress Note: A&P Assessment and Plan (1) Stroke: Qualifiers: CVA mechanism: embolism Laterality of affected vessel: left Code(s): I63.9 - Cerebral infarction, unspecified Status: Acute Assessment and Plan: 10/13: Unequal pupils, stat CT scan of the head showed: Focal wedge-shaped acute to subacute infarct involving the left frontal lobe extending to the insular cortex. Suspected additional focal acute subacute infarct in the left cerebellum. MR should be considered to further evaluate. -discussed with neurology,, recommended KOLBY and CT angio of the brain and carotids -hold aspirin for now as it is not embolic stroke secondary to endocarditis (2) Acute respiratory failure: Code(s): J96.00 - Acute respiratory failure, unspecified whether with hypoxia or hypercapnia Status: Acute Assessment and Plan: Acute respiratory failure likely related to MRSA bacteremia, influenza pneumonia, septic emboli, possible pulmonary edema -patient was in the intermediate Unit alternating between BiPAP and high-flow therapy -increasing oxygen requirements since 10/11/2023, was on 75% FiO2 with 40 L flow rate on high-flow therapy -discussed with the patient regarding intubation to which she was agreeable -10/12: Brought in to the ICU and successfully intubated the patient and placed on mechanical ventilation with a PEEP of 10 and 100% FiO2, low tidal volume strategy -chest x-ray this morning showed stable diffuse pulmonary disease, ABGs reviewed, ventilator adjusted -continue bronchodilators -sedated with Versed infusion, may add propofol if needed. Will stay away from fentanyl due to risk of serotonin syndrome with linezolid -patient was also started on Nimbex for neuromuscular blockade due to ventilator dyssynchrony 10/13 CT chest without contrast: -Extensive groundglass pulmonary disease with worsening consolidation left upper lobe as well as additional bibasilar consolidation. Correlate for pulmonary edema, infection, and/or ARDS. Splenomegaly. (3) ARDS (adult respiratory distress syndrome): Code(s): J80 - Acute respiratory distress syndrome Status: Acute Assessment and Plan: Currently in ARDS physiology, -have placed patient on low tidal volume strategy, high PEEP -chest x-ray and ABGs reviewed -continue sedation -oxygen has been adequate -patient is on Nimbex for neuromuscular blockade secondary to ventilator dyssynchrony (4) Bacteremia: Code(s): R78.81 - Bacteremia Status: Acute Assessment and Plan: 10/05/2023: Blood cultures MRSA 10/06/2023: Blood cultures growing MRSA 10/08/2023: Blood cultures growing MRSA 10/11/2023: No growth so far -continue linezolid (10/10) -continue cefepime (10/12) for Gram-negative coverage -10/13: KOLBY done by Cardiology to vegetation seen on the mitral valve with trace to mild eccentric mitral valve regurg. Filamentous mobile mass seen on tricuspid valve, probably associated with the catheter tip, possible vegetation, thrombus, fibrin, normal LV systolic function -unable to do MRI at this time, as MRI machines at [facility] are not equipped to take intubated patient is on mechanical ventilation (5) Endocarditis: Code(s): I38 - Endocarditis, valve unspecified Status: Acute Assessment and Plan: Endocarditis likely secondary to MRSA bacteremia -continue antibiotics as above -will repeat echocardiogram in 1 week to evaluate for mitral valve function (6) Chest pain: Code(s): R07.9 - Chest pain, unspecified Status: Acute Assessment and Plan: Chest pain was thought to be likely related to musculoskeletal or pleuritic in nature -cardiology has been following the patient, do not think that the chest pain and mild elevation her troponins were secondary to ACS or plaque rupture 10/03/2023 echocardiogram 1. Left ventricular chamber dimension is normal. ? 2. Left ventricular systolic function is h
[2023-10-13 11:53] LABS: Glucose Point of Care 98 mg/dl (65-105)
--- NOTE | 2023-10-13 13:30 | PM.CNPUL ---
Assessment and Plan Assessment and plan (1) Endocarditis: Code(s): I38 - Endocarditis, valve unspecified Status: Acute (2) MRSA bacteremia: Code(s): R78.81 - Bacteremia; B95.62 - Methicillin resistant Staphylococcus aureus infection as the cause of diseases classified elsewhere Status: Acute (3) Acute respiratory failure: Code(s): J96.00 - Acute respiratory failure, unspecified whether with hypoxia or hypercapnia Status: Acute Assessment and Plan: A 43-year-old female patient, with a medical history of asthma, cardiomyopathy, and valvular heart disease, presented with a respiratory illness marked by cough and congestion. Initial chest CT scan revealed pulmonary infiltrates, which over the subsequent week, coalesced to involve both lungs. Sputum and blood cultures have grown Staph aureus, indicating ongoing bacteremia associated with MRSA. Today's transesophageal echocardiogram revealed vegetations on the mitral valve. 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 The chest CT scan findings indicate severe pneumonia, characterized by bilateral infiltrates primarily at the apices, with relative sparing of the bases. Mitral regurgitation related to endocarditis may account for the apical distribution of infiltrates. Early ARDS cannot be ruled out. The patient is currently on linezolid for endocarditis and Staph pneumonia. However, in this context, vancomycin would be a more suitable choice than linezolid. An alternative is daptomycin. The patient's condition has been discussed with oil rig driller and cardiology services are also involved in her care. Considering the current scenario, the patient's prognosis appears unfavorable due to the colin progression of respiratory failure, extensive pulmonary infiltrates, and continuous MRSA bacteremia despite antibiotic intervention. We will maintain our monitoring of the patient's condition. (4) Pneumonia due to influenza A virus: Code(s): J10.00 - Influenza due to other identified influenza virus with unspecified type of pneumonia Status: Acute (5) ARDS (adult respiratory distress syndrome): Code(s): J80 - Acute respiratory distress syndrome Status: Acute (6) Septicemia: Code(s): A41.9 - Sepsis, unspecified organism Status: Acute History of Present Illness History of Present Illness Consult date: 10/13/23 Chief complaint: atypical pneumonia, elevated trop Narrative: The patient, a 43-year-old female with a medical history of asthma, cardiomyopathy, Chiari malformation, kidney stones, seizures, valvular heart disease, and myocarditis, was admitted to the emergency room presenting with shortness of breath and chest pain. She reported experiencing a cough for about a week, along with nasal congestion, a runny nose, sore throat, fever, chills, diarrhea, and vomiting. Upon admission, she tested positive for influenza A and was hospitalized for influenza pneumonia. 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 The cardiology team evaluated her for chest pain. Around eight days ago, she tested positive for MRSA via blood cultures and was started on a course of antibiotics, initially with vancomycin. However, repeated blood cultures continued to show MRSA, despite ongoing antibiotic treatment. Due to worsening respiratory symptoms and hypoxemia, she was transferred to the ICU, intubated, and a central line was placed in her right internal jugular vein. Initial chest CT scans showed small bilateral pulmonary opacities. A follow-up chest CT scan eight days later revealed diffuse pulmonary infiltrates, indicative of severe pneumonia, with potential superimposed congestive heart failure. Currently, the patient is fully sedated and intubated, receiving l
[2023-10-13 16:10] LABS: Glucose Point of Care 90 mg/dl (65-105)
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
[2023-10-13] MEDS: LATANOPROST 0.005% OP SOLN 2.5 ML BTL 1 DROP EACH EYE (20:32)
[2023-10-13 21:18] LABS: Glucose Point of Care 76 mg/dl (65-105)
[2023-10-13] MEDS: DEXTROSE 10% 1,000 ML 20 ML IV CONT (22:23)
[2023-10-14] VITALS (46 sets, daily range): BP systolic 103–131; BP diastolic 63–90; PULSE 62–119; RESP 14–33; TEMP 37–37.3; O2SAT 92–100
[2023-10-14] MEDS: MIDAZOLAM 100MG/NS 100ML(*CRX) 100 MG/100 ML BAG 6 MG IV CONT (00:47)
[2023-10-14 00:50] LABS: Glucose Point of Care 75 mg/dl (65-105)
[2023-10-14 01:28] LABS: Glucose Point of Care 86 mg/dl (65-105)
[2023-10-14] MEDS: IPRATROPIUM BR 0.02% INH SOLN 0.5 MG/2.5 ML VIAL INHALATION ×4 (02:26→20:32)
[2023-10-14] MEDS: LEVALBUTEROL NEB 1.25 MG/3 ML 0.63 MG INHALATION ×4 (02:26→20:32)
[2023-10-14] MEDS: PROPOFOL IV EMULSION 100 ML 11.53 MG IV CONT (02:48)
[2023-10-14] MEDS: DEXTROSE 50% 25 GM/50 ML SYRINGE IV PUSH (04:15)
[2023-10-14] MEDS: CEFEPIME 2 GM/NS 50 ML 2 GM/50 ML BAG IVPB ×3 (04:59→21:01)
[2023-10-14] MEDS: CENTRAL LINE FLUSH 10 ML IV PUSH ×3 (05:01→21:03)
[2023-10-14 05:21] LABS: Glucose Point of Care 70 mg/dl (65-105)
[2023-10-14 05:21] LABS: Glucose Point of Care 120 mg/dl (65-105)
[2023-10-14 05:33] LABS: Alveolar/Arterial O2 Gradient 112.8 mmHg; Base Excess ABG 1.1 mEq/l (+/-2.0); Carboxyhemoglobin 0.3 % THb (0-2.0); Fractional Inspired Oxygen 30 %; HCO3 ABG 24.8 mEq/l (22.0-26.0); Methemoglobin ABG 0.2 %THb (0-1.5); Oxygen Content ABG 15.1 %vol (16.0-22.0); Oxygen Saturation ABG 91.8 % (95.0-100.0); Oxyhemoglobin 90.7 % THb (90.0-100.0); PCO2 ABG 36.2 mmHg (35.0-45.0); PO2 ABG 58.6 mmHg (80.0-100.0); PO2 FiO2 Ratio Arterial Blood 1.95 %; Reduced Hemoglobin 8.8 %THb (0-5.0); Total Hemoglobin 11.8 g/dL (12.0-18.0); pH ABG 7.454 (7.350-7.450)
[2023-10-14 05:37] LABS: Device VENTILATOR; Modified Allen's Test Pass; Site Drawn LEFT RADIAL
[2023-10-14 05:38] LABS: Arterial Blood Gas PEEP 10 cmH2O; Arterial Blood Gas Tidal Volume 320 ml; Arterial Blood Gas Vent Mode CMV; Arterial Blood Gas Ventilator rate 26 /MIN
[2023-10-14 06:08] LABS: Basophils Absolute Auto 0.1 K/mm3 (0.0-0.1); Basophils Percent Auto 0.6 % (0.2-1.2); Eosinophils Absolute Auto 0.2 K/mm3 (0-0.3); Eosinophils Percent Auto 1.6 % (0-4.4); Hematocrit 34.3 % (37.0-47.0); Hemoglobin 10.8 g/dL (12.0-15.0); Immature Granulocyte Absolute 1.33 K/mm3 (0.00-0.031); Immature Granulocyte Percent A 9.1 % (0-0.5); Immature Platelet Fraction Pct 8.6 % (0.9-11.2); Lymphocytes Absolute Auto 0.95 K/mm3 (0.9-3.2); Lymphocytes Percent Auto 6.5 % (18.3-44.2); Mean Corpuscular HGB Conc 31.5 g/dl (32-36); Mean Corpuscular Hemoglobin 32.7 pg (26-34); Mean Corpuscular Volume 103.9 fl (80-100); Mean Platelet Volume 11.2 fl (7.4-10.4); Monocytes Absolute Auto 0.6 K/mm3 (0.1-0.6); Monocytes Percent Auto 4.1 % (2.6-8.5); Neutrophils Absolute Auto 11.4 K/mm3 (1.3-6.7); Neutrophils Percent Auto 78.1 % (45.5-73.1); Platelet Count Result 66 k/mm3 (150-375); Red Cell Distribution Width 14.7 % (11.5-14.5); White Blood Count 14.6 K/mm3 (4.5-10.0)
[2023-10-14 06:16] LABS: Alanine Aminotransferase 13 U/L (6-35); Albumin Level 3.5 g/dL (3.5-5.1); Alkaline Phosphatase 173 U/L (38-126); Anion Gap 4 mmol/L (8-16); Aspartate Amino Transferase 20 U/L (14-36); Bilirubin,Total 0.7 mg/dL (0.2-1.3); Blood Urea Nitrogen 7 mg/dL (7-17); Calcium 8.9 mg/dL (8.4-10.2); Carbon Dioxide 27 mmol/L (22-30); Chloride 102 mmol/L (98-107); Estimated CRCL calculation 86 ml/min; Estimated Glomerular Filt Rate > 60; Glucose 98 mg/dL (65-110); Magnesium 2.2 mg/dL (1.6-2.3); Phosphorus 1.9 mg/dL (2.5-4.5); Potassium 3.2 mmol/L (3.4-5.0); Sodium 133 mmol/L (137-145)
[2023-10-14 06:18] LABS: Triglycerides 140 mg/dL (<150)
[2023-10-14] MEDS: PROPOFOL IV EMULSION 100 ML 14.82 MG IV CONT ×3 (08:53→22:35)
[2023-10-14] MEDS: POTASSIUM CHLORIDE 20 MEQ PACKET (FOR LIQUID) 40 MEQ FEED TUBE (08:54)
[2023-10-14] MEDS: MINERAL OIL/WHITE PETROLATUM OINTMENT 1 APPLIC EACH EYE ×2 (08:55→21:02)
[2023-10-14] MEDS: PANTOPRAZOLE SODIUM IV 40 MG VIAL IV PUSH (08:55)
[2023-10-14] MEDS: TOPIRAMATE 100 MG TABLET PO ×2 (08:55→17:40)
[2023-10-14] MEDS: LOTEPREDNOL ETABONATE 0.5% OPH 5 ML BOTTLE 1 DROP EACH EYE ×2 (08:55→17:40)
[2023-10-14] MEDS: LINEZOLID 600 MG/300 ML 600 MG/300 ML SOLN 300 MG IVPB ×2 (08:55→21:02)
--- NOTE | 2023-10-14 09:47 | WPDINTPN ---
Progress Note: A&P Assessment and Plan (1) Bacteremia: Code(s): R78.81 - Bacteremia Status: Acute Assessment and Plan: 10/05/2023: Blood cultures MRSA 10/06/2023: Blood cultures growing MRSA 10/08/2023: Blood cultures growing MRSA 10/11/2023: No growth so far -etiology of initial infection unidentified, patient does have endocarditis with vegetations on the mitral valve -continue linezolid (10/10) -continue cefepime (10/12) for Gram-negative coverage -10/13: KOLBY done by Cardiology: vegetation seen on the mitral valve with trace to mild eccentric mitral valve regurg. Filamentous mobile mass seen on tricuspid valve, probably associated with the catheter tip, possible vegetation, thrombus, fibrin, normal LV systolic function -unable to do MRI at this time, as MRI machines at [facility] are not equipped to take intubated patient is on mechanical ventilation (2) Endocarditis: Code(s): I38 - Endocarditis, valve unspecified Status: Acute Assessment and Plan: Endocarditis likely secondary to MRSA bacteremia -continue antibiotics as above -will repeat echocardiogram in 1 week to evaluate for mitral valve function (3) Stroke: Qualifiers: CVA mechanism: embolism Laterality of affected vessel: left Code(s): I63.9 - Cerebral infarction, unspecified Status: Acute Assessment and Plan: 10/13: Unequal pupils, stat CT scan of the head showed: Focal wedge-shaped acute to subacute infarct involving the left frontal lobe extending to the insular cortex. Suspected additional focal acute subacute infarct in the left cerebellum. MR should be considered to further evaluate. -appreciate Neurology evaluation and recommendations -no anticoagulation at this time due to risk of hemorrhage per neurologist. (4) Acute respiratory failure: Code(s): J96.00 - Acute respiratory failure, unspecified whether with hypoxia or hypercapnia Status: Acute Assessment and Plan: Acute respiratory failure likely related to MRSA bacteremia, influenza pneumonia, septic emboli, possible pulmonary edema -patient was in the intermediate Unit alternating between BiPAP and high-flow therapy -increasing oxygen requirements since 10/11/2023, was on 75% FiO2 with 40 L flow rate on high-flow therapy -discussed with the patient regarding intubation to which she was agreeable -10/12: Brought in to the ICU and successfully intubated the patient and placed on mechanical ventilation with a PEEP of 10 and 100% FiO2, low tidal volume strategy -chest x-ray this morning showed Stable diffuse pulmonary disease., ABGs reviewed, ventilator adjusted -continue bronchodilators -continue antibiotics as above -sedated with Versed infusion and propofol. Will stay away from fentanyl due to risk of serotonin syndrome with linezolid -OFF NIMBEX. patient was on Nimbex for 24 hrs for neuromuscular blockade and ventilator synchrony, 10/13 CT chest without contrast: -Extensive groundglass pulmonary disease with worsening consolidation left upper lobe as well as additional bibasilar consolidation. Correlate for pulmonary edema, infection, and/or ARDS. Splenomegaly. (5) ARDS (adult respiratory distress syndrome): Code(s): J80 - Acute respiratory distress syndrome Status: Acute Assessment and Plan: Currently in ARDS physiology, -have placed patient on low tidal volume strategy, high PEEP -chest x-ray and ABGs reviewed -continue sedation -oxygen has been adequate -continue antibiotics as above (6) Chest pain: Code(s): R07.9 - Chest pain, unspecified Status: Acute Assessment and Plan: Chest pain was thought to be likely related to musculoskeletal or pleuritic in nature -cardiology has been following the patient, do not think that the chest pain and mild elevation her troponins were secondary to ACS or plaque rupture 10/03/2023 echocardiogram 1. Left ventricular chamber dimension
[2023-10-14] MEDS: POTASSIUM PHOS,M-BASIC-D-BASIC 40 MMOL in SODIUM CHLORIDE 0.9% IV 250 ML 43.89 MMOL IVPB (10:05)
--- NOTE | 2023-10-14 10:10 | PM.PNPUL ---
Progress Note: A&P Assessment and Plan (1) Acute respiratory failure: Code(s): J96.00 - Acute respiratory failure, unspecified whether with hypoxia or hypercapnia Status: Acute Assessment and Plan: A 43-year-old female patient, with a medical history that includes asthma, cardiomyopathy, and valvular heart disease, has been diagnosed with a respiratory infection characterized by coughing and congestion. An initial chest CT scan revealed pulmonary infiltrates which, over the following week, expanded to affect both lungs. Staph aureus was found in both the sputum and blood cultures, suggesting an ongoing MRSA-associated bacteremia. A transesophageal echocardiogram detected vegetations on the mitral valve. Considering the patient's clinical history of bacteremia and recent echocardiographic results, there is a suspicion of MRSA endocarditis. The chest CT scan findings suggest severe pneumonia, characterized by bilateral infiltrates primarily at the apices with relative sparing of the bases. The apical distribution of infiltrates could be due to mitral regurgitation associated with endocarditis. Early ARDS hasn't been ruled out. The patient is currently being treated with antibiotics for MRSA endocarditis and Staph pneumonia. She is under the care of Cardiology Services, Neurology Services for a recent CVA, and an senior grants officer. Her respiratory condition is linked to her primary disease, which is MRSA bacteremia/endocarditis. I will continue to monitor her respiratory status. A sputum surveillance culture is recommended. (2) Septicemia: Code(s): A41.9 - Sepsis, unspecified organism Status: Acute (3) Cardiomyopathy: Code(s): I42.9 - Cardiomyopathy, unspecified Status: Acute (4) Endocarditis: Code(s): I38 - Endocarditis, valve unspecified Status: Acute (5) Stroke: Qualifiers: CVA mechanism: embolism Laterality of affected vessel: left Code(s): I63.9 - Cerebral infarction, unspecified Status: Acute (6) ARDS (adult respiratory distress syndrome): Code(s): J80 - Acute respiratory distress syndrome Status: Acute Subjective Date/time seen: 10/14/23 10:10 Interval history: There has been no change in patient's respiratory status. She remains fully sedated on mechanical ventilation in the intensive care unit. Current FiO2 45%. Has been hemodynamically stable, receiving IV antibiotics for MRSA endocarditis. Review of Systems Review of Systems: ROS unobtainable: Yes unobtainable due to endotracheal tube and unobtainable due to medical condition Exam Narrative: GENERAL APPEARANCE: Well developed, well nourished, fully sedated on mechanical ventilation SKIN: Inspection of the skin reveals no rashes, ulcerations or petechiae. HEENT: Sclerae anicteric. Anisocoria NECK: Supple. There was no thyroid enlargement. LUNGS: Crackles lateral chest right more than left, no wheezing CARDIAC: There was a regular rate and rhythm without any murmurs. ABDOMEN: Soft and nontender with normal bowel sounds. There was no organomegaly. LYMPH NODES: No lymphadenopathy was appreciated in the neck. EXTREMITIES: No cyanosis, clubbing or edema. NEUROLOGIC: Fully sedated on mechanical ventilation Objective Data Vital Signs Vital Signs: Vital Signs - 24 hr 10/13/23 10:20 10/13/23 10:25 10/13/23 10:35 Temperature Pulse Rate 107 H 107 H 108 H Respiratory Rate 26 H 26 H 26 H Blood Pressure 104/66 117/74 117/71 Pulse Oximetry 98 98 97 Oxygen Delivery Mechanical Ventilation Mechanical Ventilation Mechanical Ventilation Fraction of Inspired Oxygen 10/13/23 10:30 10/13/23 11:31 10/13/23 11:57 Temperature Pulse Rate 108 H 110 H 110 H Respiratory Rate 26 H 26 H Blood Pressure 119/78 Pulse Oximetry 98 98 Oxygen Delivery Mechanical Ventilation Mechanical Ventilation Fraction of Inspired Oxygen 50 10/13/23 11:59 10/13/23 12:00 10/13/23 12:00
--- NOTE | 2023-10-14 10:59 | WPDNEUROPN ---
Progress Note: A&P Assessment and Plan (1) Stroke: Qualifiers: CVA mechanism: embolism Laterality of affected vessel: left Code(s): I63.9 - Cerebral infarction, unspecified Status: Acute (2) Endocarditis: Code(s): I38 - Endocarditis, valve unspecified Status: Acute (3) MRSA bacteremia: Code(s): R78.81 - Bacteremia; B95.62 - Methicillin resistant Staphylococcus aureus infection as the cause of diseases classified elsewhere Status: Acute Plan Ms. Ervin is a 43 year old female with a history of Leopard including congenial heart disease presenting for chest pain and respiratory failure. 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 Patient is sedated and paralytic at the time of my elevation so unable to assess any focal deficits, but she does have anisocoria. Current recommendations for stroke in the setting of endocarditis discourage use of antithrombotic therapy given risk of hemorrhage and limited evidence on effects of therapy. However, if she has a cardiac indication for antiplatelet agent or anticoagulation, then it should certainly be considered. She has been maintained on antibiotics. Will continue to follow. Plans to transfer to [facility] in place. Subjective Date/time seen: 10/14/23 10:59 Interval history: Ivon Cui is a 43 year old female with a history of ASD s/p closure, bicuspid aortic valve, cardiomyopathy, Leopard syndrome, asthma, Chiari 1 malformation s/p decompression, epilepsy, valvular heart disease who presented due to shortness of breath and chest pain. She also had cough, chills, and subjective fevers. Her influenza A was positive on admission. She was subsequently admitted. Her blood cultures came back positive for MRSA. Due to respiratory decline patient was transferred to the ICU after intubation. This morning, the ICU physician noted unequal pupil size. CT head was done which showed wedge shaped subacute infarct in the L frontal lobe as well as the L cerebellum. CTA brain/carotid was obtained which showed thrombus in the smaller L MCA branches but no LVO. She had a KOLBY done today which did show valvular vegetations. She has been started on antibiotics for treatment of such. From what I can see in her chart she does not have any history of mechanical/prosthetic valve. I do not see any antiplatelet medications or anticoagulation listed in her home medications. She is still sedated but off paralytic. She will be transferred to [facility] since we do not have CT surgery here at [place]. Review of Systems Review of Systems: sedated ROS unobtainable: Yes unobtainable due to endotracheal tube, unobtainable due to medical condition and unobtainable due to mental status Exam Const: Other: on sedation at the time of this exam HENMT: Mouth: Yes moist mucous membranes Eyes: Other: L pupil 5mm -- not reactive to light, R pupil 3mm, very sluggishly reactive to light. Resp: Other: intubated and mechanically ventillated Skin: General skin exam: normal color Neuro: Other: intubated, sedated, on paralytic, L pupil 5mm, R pupil 3mm. Face otherwise appears symmetric, cough is intact, eyes closed with no spontaneous opening, no spontaneous movements of the extremities, had very slight withdrawal of the L foot with noxious stim. Extrem: General: normal to inspection Psych: Other: unable to assess Objective Data Vital Signs Vital Signs: Vital Signs - 24 hr 10/13/23 11:31 10/13/23 11:57 10/13/23 11:59 Temperature Pulse Rate 110 H 110 H 110 H Respiratory Rate 26 H 26 H Blood Pressure Pulse Oximetry 98 Oxygen Delivery Mechanical Ventilation Fraction of Inspired Oxygen 50 10/13/23 12:00 10/13/23 12:00 10/13/23 12:00 Temperature Pulse Rate 107 H 109 H Respiratory Rate 26 H Blood Pressure 109/67 P
[2023-10-14 11:55] LABS: Glucose Point of Care 102 mg/dl (65-105)
--- NOTE | 2023-10-14 13:05 | PCNFU ---
Nutrition Follow-Up Complete: Inadequate oral intake related to NPO/vent status as evidenced by no intake over the past day. goal: TF to be initiated in the next 1-2 days. We are progressing with goal. We will continue current goal. Pt current nutrition is Vital AF 1.2 at 20 ml/hr. Last recorded weight is 54.6 kg, down from 63 kg on admit. Bowel Motility: +BM reported 10/13 Labs Reviewed:Cr 0.5,K 3.2,NA 133 Meds Noted:Propofol 45 xjty=722 kcals, Protonix, Versed Skin: WNL Additional Notes: Patient current with mechanical vent. Tube feedings starting with trickle feedings of Vital AF 1.2 at 20 ml/hr. Total Nutrition with Propofol Infusion: 919 kcals/33 gms protein/357 ml water. Recommend goal rate of Vital AF 1.2 at 45 ml/hr due to propofol infusion. Will continue to monitor propofol infusion for additional rate recommendations. Monitor weight, vitals, labs, TF initiation/tolerance every Tuesday and Tuesday.
[2023-10-14] MEDS: MIDAZOLAM 100MG/NS 100ML(*CRX) 100 MG/100 ML BAG 7 MG IV CONT (13:17)
[2023-10-14] MEDS: CISATRACURIUM BESYLATE 200 MG in DEXTROSE 5% 80 ML IV CONT (15:03)
[2023-10-14 17:37] LABS: Glucose Point of Care 107 mg/dl (65-105)
--- NOTE | 2023-10-14 20:56 | PC.NURSE ---
Nimbex gtt found infusing at 3 mcg/kg/min. Reported as such, but charting not updated by previous RN.
[2023-10-14] MEDS: LATANOPROST 0.005% OP SOLN 2.5 ML BTL 1 DROP EACH EYE (21:02)
[2023-10-15] VITALS (28 sets, daily range): BP systolic 100–136; BP diastolic 68–82; PULSE 89–126; RESP 18–23; TEMP 36.2–38; O2SAT 95–100
[2023-10-15] MEDS: DEXTROSE 10% 1,000 ML 25 ML IV CONT (00:04)
[2023-10-15 00:46] LABS: Glucose Point of Care 104 mg/dl (65-105)
[2023-10-15] MEDS: LEVALBUTEROL NEB 1.25 MG/3 ML 0.63 MG INHALATION ×4 (02:24→21:16)
[2023-10-15] MEDS: IPRATROPIUM BR 0.02% INH SOLN 0.5 MG/2.5 ML VIAL INHALATION ×4 (02:24→21:16)
[2023-10-15] MEDS: MIDAZOLAM 100MG/NS 100ML(*CRX) 100 MG/100 ML BAG 7 MG IV CONT ×2 (03:35→18:22)
[2023-10-15 04:42] LABS: Alveolar/Arterial O2 Gradient 148.6 mmHg; Carboxyhemoglobin 0.3 % THb (0-2.0); Fractional Inspired Oxygen 45 %; HCO3 ABG 23.9 mEq/l (22.0-26.0); Methemoglobin ABG 0.2 %THb (0-1.5); Oxygen Content ABG 17.4 %vol (16.0-22.0); Oxyhemoglobin 97.7 % THb (90.0-100.0); PCO2 ABG 29.3 mmHg (35.0-45.0); PO2 ABG 138.9 mmHg (80.0-100.0); PO2 FiO2 Ratio Arterial Blood 3.09 %; Reduced Hemoglobin 1.8 %THb (0-5.0); Total Hemoglobin 12.5 g/dL (12.0-18.0)
[2023-10-15 04:44] LABS: pH ABG 7.523 (7.350-7.450)
[2023-10-15 04:45] LABS: Arterial Blood Gas Ventilator rate 22 /MIN; Device VENTILATOR; Modified Allen's Test Pass; Site Drawn RIGHT BRACHIAL
[2023-10-15 04:46] LABS: Arterial Blood Gas PEEP 10 cmH2O; Arterial Blood Gas Tidal Volume 320 ml; Arterial Blood Gas Vent Mode CMV
[2023-10-15] MEDS: PROPOFOL IV EMULSION 100 ML 14.82 MG IV CONT ×4 (05:20→18:34)
[2023-10-15] MEDS: CEFEPIME 2 GM/NS 50 ML 2 GM/50 ML BAG IVPB ×3 (05:41→21:08)
[2023-10-15] MEDS: CENTRAL LINE FLUSH 10 ML IV PUSH ×3 (05:42→21:10)
[2023-10-15] MEDS: CISATRACURIUM BESYLATE 200 MG in DEXTROSE 5% 80 ML 5.77 ML IV CONT (05:44)
[2023-10-15] MEDS: DEXTROSE 50% 25 GM/50 ML SYRINGE IV PUSH (06:01)
[2023-10-15 06:21] LABS: Glucose Point of Care 142 mg/dl (65-105)
[2023-10-15 06:21] LABS: Glucose Point of Care 59 mg/dl (65-105)
[2023-10-15 06:27] LABS: Hemoglobin 11.6 g/dL (12.0-15.0); Immature Platelet Fraction Pct 5.7 % (0.9-11.2); Mean Corpuscular HGB Conc 32.2 g/dl (32-36); Mean Corpuscular Hemoglobin 32.7 pg (26-34); Mean Corpuscular Volume 101.4 fl (80-100); Mean Platelet Volume 10.9 fl (7.4-10.4); Platelet Count Result 74 k/mm3 (150-375); Red Blood Count 3.55 M/mm3 (4.2-5.4); Red Cell Distribution Width 14.6 % (11.5-14.5); White Blood Count 12.4 K/mm3 (4.5-10.0)
[2023-10-15 06:41] LABS: Alanine Aminotransferase 13 U/L (6-35); Albumin Level 3.4 g/dL (3.5-5.1); Alkaline Phosphatase 141 U/L (38-126); Anion Gap 7 mmol/L (8-16); Aspartate Amino Transferase 20 U/L (14-36); Bilirubin,Total 0.8 mg/dL (0.2-1.3); Blood Urea Nitrogen 5 mg/dL (7-17); Calcium 8.9 mg/dL (8.4-10.2); Carbon Dioxide 25 mmol/L (22-30); Chloride 100 mmol/L (98-107); Estimated CRCL calculation 86 ml/min; Estimated Glomerular Filt Rate > 60; Glucose 205 mg/dL (65-110); Magnesium 1.9 mg/dL (1.6-2.3); Phosphorus 2.8 mg/dL (2.5-4.5); Potassium 2.8 mmol/L (3.4-5.0); Sodium 132 mmol/L (137-145)
--- NOTE | 2023-10-15 09:17 | PM.PNPUL ---
Progress Note: A&P Assessment and Plan (1) Acute respiratory failure: Code(s): J96.00 - Acute respiratory failure, unspecified whether with hypoxia or hypercapnia Status: Acute Assessment and Plan: A 43-year-old female patient, with a medical history that includes asthma, cardiomyopathy, and valvular heart disease, has been diagnosed with a respiratory infection characterized by coughing and congestion. An initial chest CT scan revealed pulmonary infiltrates which, over the following week, expanded to affect both lungs. Staph aureus was found in both the sputum and blood cultures, suggesting an ongoing MRSA-associated bacteremia. A transesophageal echocardiogram detected vegetations on the mitral valve. Considering the patient's clinical history of bacteremia and recent echocardiographic results, there is a suspicion of MRSA endocarditis. The chest CT scan findings suggest severe pneumonia, characterized by bilateral infiltrates primarily at the apices with relative sparing of the bases. The apical distribution of infiltrates could be due to mitral regurgitation associated with endocarditis. Early ARDS hasn't been ruled out. The patient is currently being treated with antibiotics for MRSA endocarditis and Staph pneumonia. She is under the care of Cardiology Services, Neurology Services for a recent CVA, and an drum handler. Her respiratory condition is linked to her primary disease, which is MRSA bacteremia/endocarditis. Respiratory status Yifan Melisa unchanged over the last 24 hours. Chest x-ray with bilateral infiltrates as before. WBC trending down on current treatment. Able to maintain gas exchange with relatively low FiO2 and peep of 10. Efforts are underway to transfer patient to a tertiary center for high level of care. I will continue to monitor her respiratory status. . (2) Septicemia: Code(s): A41.9 - Sepsis, unspecified organism Status: Acute (3) Cardiomyopathy: Code(s): I42.9 - Cardiomyopathy, unspecified Status: Acute (4) Endocarditis: Code(s): I38 - Endocarditis, valve unspecified Status: Acute (5) Stroke: Qualifiers: CVA mechanism: embolism Laterality of affected vessel: left Code(s): I63.9 - Cerebral infarction, unspecified Status: Acute (6) ARDS (adult respiratory distress syndrome): Code(s): J80 - Acute respiratory distress syndrome Status: Acute Subjective Date/time seen: 10/15/23 09:17 Interval history: Patient remains fully sedated intubated in the intensive care unit. Receiving mechanical ventilation with lung protective protocol, tidal volume 320 peep of 10 FiO2 45%. Review of Systems Review of Systems: All systems reviewed & are unremarkable except as noted in HPI and below (HPI and below) Exam Narrative: GENERAL APPEARANCE: Well developed, well nourished, fully sedated on mechanical ventilation SKIN: Inspection of the skin reveals no rashes, ulcerations or petechiae. HEENT: Sclerae anicteric. Anisocoria NECK: Supple. There was no thyroid enlargement. LUNGS: Crackles lateral chest right more than left, no wheezing CARDIAC: There was a regular rate and rhythm without any murmurs. ABDOMEN: Soft and nontender with normal bowel sounds. There was no organomegaly. LYMPH NODES: No lymphadenopathy was appreciated in the neck. EXTREMITIES: No cyanosis, clubbing or edema. NEUROLOGIC: Fully sedated on mechanical ventilation Objective Data Vital Signs Vital Signs: Vital Signs - 24 hr 10/14/23 10:00 10/14/23 10:10/14/23 11:06 Temperature Pulse Rate 91 91 93 Respiratory Rate 22 H Blood Pressure 113/73 Pulse Oximetry 97 97 Oxygen Delivery Mechanical Ventilation Fraction of Inspired Oxygen 45 10/14/23 10:10/14/23 10:10/14/23 12:00 Temperature Pulse Rate 94 94 94 Respiratory Rate 26 H 26 H Blood Pressure Pulse Oximetry Oxygen Delivery Fraction of Inspired Oxygen
[2023-10-15] MEDS: KCL 40 MEQ/WATER 100 ML 100 ML 25 ML IVPB (09:26)
[2023-10-15] MEDS: TOPIRAMATE 100 MG TABLET PO ×2 (09:27→18:22)
[2023-10-15] MEDS: POTASSIUM CHLORIDE 20 MEQ PACKET (FOR LIQUID) 40 MEQ FEED TUBE (09:27)
[2023-10-15] MEDS: PANTOPRAZOLE SODIUM IV 40 MG VIAL IV PUSH (09:27)
[2023-10-15] MEDS: LINEZOLID 600 MG/300 ML 600 MG/300 ML SOLN 300 MG IVPB ×2 (09:28→21:09)
[2023-10-15] MEDS: LOTEPREDNOL ETABONATE 0.5% OPH 5 ML BOTTLE 1 DROP EACH EYE ×2 (09:28→16:23)
[2023-10-15] MEDS: MINERAL OIL/WHITE PETROLATUM OINTMENT 1 APPLIC EACH EYE ×2 (09:33→21:09)
[2023-10-15 10:41] LABS: Glucose Point of Care 121 mg/dl (65-105)
[2023-10-15] MEDS: MAGNESIUM SULF 2 GM/WATER 50ML 2 GM/50 ML BAG IVPB (12:55)
[2023-10-15 18:19] LABS: Glucose Point of Care 120 mg/dl (65-105)
[2023-10-15] MEDS: LATANOPROST 0.005% OP SOLN 2.5 ML BTL 1 DROP EACH EYE (21:09)
[2023-10-16] VITALS (27 sets, daily range): BP systolic 95–120; BP diastolic 62–80; PULSE 80–117; RESP 17–28; TEMP 37.1–37.8; O2SAT 92–100
[2023-10-16] MEDS: PROPOFOL IV EMULSION 100 ML 13.18 MG IV CONT ×4 (00:38→22:20)
[2023-10-16 00:50] LABS: Glucose Point of Care 107 mg/dl (65-105)
[2023-10-16] MEDS: IPRATROPIUM BR 0.02% INH SOLN 0.5 MG/2.5 ML VIAL INHALATION ×4 (03:13→20:41)
[2023-10-16] MEDS: LEVALBUTEROL NEB 1.25 MG/3 ML 0.63 MG INHALATION ×4 (03:13→20:41)
[2023-10-16 05:19] LABS: Alveolar/Arterial O2 Gradient 149.9 mmHg; Base Excess ABG 3.8 mEq/l (+/-2.0); Carboxyhemoglobin 0.2 % THb (0-2.0); Fractional Inspired Oxygen 40 %; HCO3 ABG 26.4 mEq/l (22.0-26.0); Methemoglobin ABG 0.6 %THb (0-1.5); Oxygen Content ABG 25.3 %vol (16.0-22.0); Oxygen Saturation ABG 97.9 % (95.0-100.0); Oxyhemoglobin 96.3 % THb (90.0-100.0); PCO2 ABG 34.4 mmHg (35.0-45.0); PO2 ABG 95.7 mmHg (80.0-100.0); PO2 FiO2 Ratio Arterial Blood 2.39 %; Reduced Hemoglobin 2.9 %THb (0-5.0); Total Hemoglobin 18.7 g/dL (12.0-18.0)
[2023-10-16 05:32] LABS: Device VENTILATOR; Modified Allen's Test Pass; Site Drawn LEFT RADIAL; pH ABG 7.503 (7.350-7.450)
[2023-10-16 05:33] LABS: Arterial Blood Gas PEEP 10 cmH2O; Arterial Blood Gas Tidal Volume 320 ml; Arterial Blood Gas Vent Mode CMV; Arterial Blood Gas Ventilator rate 18 /MIN
[2023-10-16] MEDS: CEFEPIME 2 GM/NS 50 ML 2 GM/50 ML BAG IVPB ×3 (06:23→21:26)
[2023-10-16 07:02] LABS: Hematocrit 35.1 % (37.0-47.0); Hemoglobin 11.3 g/dL (12.0-15.0); Immature Platelet Fraction Pct 7.8 % (0.9-11.2); Mean Corpuscular HGB Conc 32.2 g/dl (32-36); Mean Corpuscular Hemoglobin 32.8 pg (26-34); Mean Corpuscular Volume 101.7 fl (80-100); Platelet Count Result 87 k/mm3 (150-375); Red Blood Count 3.45 M/mm3 (4.2-5.4); Red Cell Distribution Width 14.6 % (11.5-14.5); White Blood Count 14.4 K/mm3 (4.5-10.0)
[2023-10-16 07:02] LABS: Glucose Point of Care 106 mg/dl (65-105)
[2023-10-16 07:16] LABS: Alanine Aminotransferase 11 U/L (6-35); Alkaline Phosphatase 124 U/L (38-126); Anion Gap 5 mmol/L (8-16); Aspartate Amino Transferase 22 U/L (14-36); Bilirubin,Total 0.9 mg/dL (0.2-1.3); Blood Urea Nitrogen 10 mg/dL (7-17); CRP 3.7 mg/dL (<1.0); Carbon Dioxide 26 mmol/L (22-30); Chloride 103 mmol/L (98-107); Estimated CRCL calculation 86 ml/min; Estimated Glomerular Filt Rate > 60; Glucose 113 mg/dL (65-110); Magnesium 2.2 mg/dL (1.6-2.3); Phosphorus 2.6 mg/dL (2.5-4.5); Potassium 3.3 mmol/L (3.4-5.0); Sodium 134 mmol/L (137-145)
[2023-10-16 07:31] LABS: Band Neutrophils Percent 6 % (0-6); Basophils Absolute Manual 0.28 K/mm3 (0.0-0.1); Basophils Percent Manual 2 % (0-1); Lymphocytes Absolute Manual 1.72 K/mm3 (1.1-4.5); Monocytes Absolute Manual 0.72 K/mm3 (0.1-0.90); Monocytes Percent Manual 5 % (3-9); Neutrophils Absolute Manual 11.66 K/mm3 (1.7-7.2); Neutrophils Percent Manual 75 % (46-73); Platelet Estimate Decreased (Adequate); Schistocytes None Seen (NORMAL); Total Cells Counted 100
[2023-10-16 07:32] LABS: Hypochromasia 1+ (NORMAL)
[2023-10-16] MEDS: CENTRAL LINE FLUSH 10 ML IV PUSH ×3 (08:21→21:26)
[2023-10-16 08:45] LABS: Toxigenic C. Diff NEGATIVE (NEGATIVE)
[2023-10-16] MEDS: FUROSEMIDE INJ 40 MG/4 ML VIAL IV PUSH (09:29)
[2023-10-16] MEDS: PANTOPRAZOLE SODIUM IV 40 MG VIAL IV PUSH (09:29)
[2023-10-16] MEDS: LINEZOLID 600 MG/300 ML 600 MG/300 ML SOLN 300 MG IVPB ×2 (09:30→21:25)
[2023-10-16] MEDS: POTASSIUM CHLORIDE 20 MEQ PACKET (FOR LIQUID) FEED TUBE (09:30)
[2023-10-16] MEDS: TOPIRAMATE 100 MG TABLET PO ×2 (09:30→18:26)
[2023-10-16] MEDS: MINERAL OIL/WHITE PETROLATUM OINTMENT 1 APPLIC EACH EYE ×2 (09:30→21:25)
[2023-10-16] MEDS: KCL 40 MEQ/WATER 100 ML 100 ML 25 ML IVPB (09:31)
[2023-10-16] MEDS: MIDAZOLAM 100MG/NS 100ML(*CRX) 100 MG/100 ML BAG 7 MG IV CONT (09:31)
[2023-10-16] MEDS: LOTEPREDNOL ETABONATE 0.5% OPH 5 ML BOTTLE 1 DROP EACH EYE ×2 (09:31→18:26)
--- NOTE | 2023-10-16 09:35 | WPDINTPN ---
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 Suspected additional focal acute subacute infarct in the left cerebellum. MR should be considered to further evaluate. -appreciate Neurology evaluation and recommendations -no anticoagulation at this time due to risk of hemorrhage per neurologist. (4) Acute respiratory failure: Code(s): J96.00 - Acute respiratory failure, unspecified whether with hypoxia or hypercapnia Status: Acute Assessment and Plan: Acute respiratory failure likely related to MRSA bacteremia, influenza pneumonia, septic emboli, possible pulmonary edema -patient was in the intermediate Unit alternating between BiPAP and high-flow therapy -increasing oxygen requirements since 10/11/2023, was on 75% FiO2 with 40 L flow rate on high-flow therapy -discussed with the patient regarding intubation to which she was agreeable -10/12: Brought in to the ICU and successfully intubated the patient and placed on mechanical ventilation with a PEEP of 10 and 100% FiO2, low tidal volume strategy -chest x-ray this morning showed Stable diffuse pulmonary disease., -ABGs reviewed, ventilator adjusted -continue bronchodilators -continue antibiotics as above -sedated with Versed infusion and propofol. Will stay away from fentanyl due to risk of serotonin syndrome with linezolid -10/14: back on Nimbex patient was dyssynchronous with the ventilator and tachypneic. will try and wean Nimbex to off if patient tolerate 10/13 CT chest without contrast: -Extensive groundglass pulmonary disease with worsening consolidation left upper lobe as well as additional bibasilar consolidation. Correlate for pulmonary edema, infection, and/or ARDS. Splenomegaly. (5) ARDS (adult respiratory distress syndrome): Code(s): J80 - Acute respiratory distress syndrome Status: Acute Assessment and Plan: Currently in ARDS physiology, -have placed patient on low tidal volume strategy, high PEEP -chest x-ray and ABGs reviewed -continue sedation -oxygen has been adequate -continue antibiotics as above (6) Chest pain: Code(s): R07.9 - Chest pain, unspecified Status: Acute Assessment and Plan: Chest pain was thought to be likely related to musculoskeletal or pleuritic in nature -cardiology has been followin
[2023-10-16 12:26] LABS: Glucose Point of Care 111 mg/dl (65-105)
--- NOTE | 2023-10-16 13:03 | PM.IMPN ---
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 Suspected additional focal acute subacute infarct in the left cerebellum. MR should be considered to further evaluate. -appreciate Neurology evaluation and recommendations -no anticoagulation at this time due to risk of hemorrhage per neurologist. (4) Acute respiratory failure: Code(s): J96.00 - Acute respiratory failure, unspecified whether with hypoxia or hypercapnia Status: Acute Assessment and Plan: Acute respiratory failure likely related to MRSA bacteremia, influenza pneumonia, septic emboli, possible pulmonary edema -patient was in the intermediate Unit alternating between BiPAP and high-flow therapy -increasing oxygen requirements since 10/11/2023, was on 75% FiO2 with 40 L flow rate on high-flow therapy -discussed with the patient regarding intubation to which she was agreeable -10/12: Brought in to the ICU and successfully intubated the patient and placed on mechanical ventilation with a PEEP of 10 and 100% FiO2, low tidal volume strategy -chest x-ray this morning showed Stable diffuse pulmonary disease., -ABGs reviewed, ventilator adjusted -continue bronchodilators -continue antibiotics as above -sedated with Versed infusion and propofol. Will stay away from fentanyl due to risk of serotonin syndrome with linezolid -10/14: back on Nimbex patient was dyssynchronous with the ventilator and tachypneic. will try and wean Nimbex to off if patient tolerate 10/13 CT chest without contrast: -Extensive groundglass pulmonary disease with worsening consolidation left upper lobe as well as additional bibasilar consolidation. Correlate for pulmonary edema, infection, and/or ARDS. Splenomegaly. (5) ARDS (adult respiratory distress syndrome): Code(s): J80 - Acute respiratory distress syndrome Status: Acute Assessment and Plan: Currently in ARDS physiology, -have placed patient on low tidal volume strategy, high PEEP -chest x-ray and ABGs reviewed -continue sedation -oxygen has been adequate -continue antibiotics as above (6) Chest pain: Code(s): R07.9 - Chest pain, unspecified Status: Acute Assessment and Plan: Chest pain was thought to be likely related to musculoskeletal or pleuritic in nature -cardiology has been following the patient, do not think that the chest pain and mild elevation her troponins were secondary to ACS or plaque ru
[2023-10-16 20:18] LABS: Glucose Point of Care 88 mg/dl (65-105)
[2023-10-16] MEDS: LATANOPROST 0.005% OP SOLN 2.5 ML BTL 1 DROP EACH EYE (21:25)
[2023-10-17] VITALS (42 sets, daily range): BP systolic 95–119; BP diastolic 65–83; PULSE 102–155; RESP 19–29; TEMP 37.1–37.6; O2SAT 95–100
[2023-10-17] MEDS: MIDAZOLAM 100MG/NS 100ML(*CRX) 100 MG/100 ML BAG 6 MG IV CONT ×2 (01:00→18:14)
[2023-10-17 01:22] LABS: Glucose Point of Care 122 mg/dl (65-105)
[2023-10-17] MEDS: LEVALBUTEROL NEB 1.25 MG/3 ML 0.63 MG INHALATION ×4 (02:07→20:10)
[2023-10-17] MEDS: IPRATROPIUM BR 0.02% INH SOLN 0.5 MG/2.5 ML VIAL INHALATION ×4 (02:07→20:10)
[2023-10-17 05:01] LABS: Alveolar/Arterial O2 Gradient 104.1 mmHg; Base Excess ABG 2.7 mEq/l (+/-2.0); Carboxyhemoglobin 0.3 % THb (0-2.0); Fractional Inspired Oxygen 35 %; HCO3 ABG 25.2 mEq/l (22.0-26.0); Methemoglobin ABG 0.3 %THb (0-1.5); Oxygen Saturation ABG 98.4 % (95.0-100.0); Oxyhemoglobin 96.9 % THb (90.0-100.0); PCO2 ABG 31.8 mmHg (35.0-45.0); PO2 ABG 108.5 mmHg (80.0-100.0); Reduced Hemoglobin 2.5 %THb (0-5.0); Total Hemoglobin 12.4 g/dL (12.0-18.0)
[2023-10-17 05:02] LABS: Modified Allen's Test Pass; Site Drawn RIGHT RADIAL; pH ABG 7.516 (7.350-7.450)
[2023-10-17 05:03] LABS: Arterial Blood Gas PEEP 8 cmH2O; Arterial Blood Gas Tidal Volume 300 ml; Arterial Blood Gas Vent Mode CMV; Arterial Blood Gas Ventilator rate 16 /MIN; Device VENTILATOR
[2023-10-17 05:15] LABS: Basophils Absolute Auto 0.2 K/mm3 (0.0-0.1); Basophils Percent Auto 1.4 % (0.2-1.2); Eosinophils Absolute Auto 0.4 K/mm3 (0-0.3); Eosinophils Percent Auto 2.7 % (0-4.4); Hematocrit 36.5 % (37.0-47.0); Hemoglobin 11.6 g/dL (12.0-15.0); Immature Granulocyte Absolute 1.67 K/mm3 (0.00-0.031); Immature Platelet Fraction Pct 10.1 % (0.9-11.2); Lymphocytes Absolute Auto 1.36 K/mm3 (0.9-3.2); Lymphocytes Percent Auto 10.6 % (18.3-44.2); Mean Corpuscular HGB Conc 31.8 g/dl (32-36); Mean Corpuscular Hemoglobin 32.1 pg (26-34); Mean Corpuscular Volume 101.1 fl (80-100); Monocytes Absolute Auto 1.2 K/mm3 (0.1-0.6); Monocytes Percent Auto 9.2 % (2.6-8.5); Neutrophils Absolute Auto 8.1 K/mm3 (1.3-6.7); Neutrophils Percent Auto 63.1 % (45.5-73.1); Platelet Count Result 93 k/mm3 (150-375); Red Blood Count 3.61 M/mm3 (4.2-5.4); Red Cell Distribution Width 14.5 % (11.5-14.5); White Blood Count 12.9 K/mm3 (4.5-10.0)
[2023-10-17 05:28] LABS: Alanine Aminotransferase 10 U/L (6-35); Albumin Level 3.3 g/dL (3.5-5.1); Alkaline Phosphatase 110 U/L (38-126); Anion Gap 5 mmol/L (8-16); Aspartate Amino Transferase 18 U/L (14-36); Bilirubin,Total 0.7 mg/dL (0.2-1.3); Blood Urea Nitrogen 12 mg/dL (7-17); CRP 2.9 mg/dL (<1.0); Calcium 9.3 mg/dL (8.4-10.2); Carbon Dioxide 26 mmol/L (22-30); Chloride 102 mmol/L (98-107); Estimated CRCL calculation 73 ml/min; Estimated Glomerular Filt Rate > 60; Glucose 113 mg/dL (65-110); Magnesium 1.9 mg/dL (1.6-2.3); Phosphorus 3.3 mg/dL (2.5-4.5); Potassium 3.6 mmol/L (3.4-5.0); Sodium 133 mmol/L (137-145)
[2023-10-17] MEDS: PROPOFOL IV EMULSION 100 ML 13.18 MG IV CONT ×3 (05:37→20:37)
[2023-10-17] MEDS: CEFEPIME 2 GM/NS 50 ML 2 GM/50 ML BAG IVPB ×3 (05:44→21:04)
[2023-10-17] MEDS: CENTRAL LINE FLUSH 10 ML IV PUSH ×3 (05:44→21:04)
[2023-10-17 06:03] LABS: Anisocytosis 1+ (NORMAL); Giant Platelets Present; Platelet Estimate Decreased (Adequate)
[2023-10-17 06:04] LABS: Schistocytes None Seen (NORMAL)
[2023-10-17] MEDS: MAGNESIUM SULF 2 GM/WATER 50ML 2 GM/50 ML BAG IVPB (08:45)
[2023-10-17] MEDS: LINEZOLID 600 MG/300 ML 600 MG/300 ML SOLN 300 MG IVPB ×2 (08:45→20:53)
[2023-10-17] MEDS: MINERAL OIL/WHITE PETROLATUM OINTMENT 1 APPLIC EACH EYE ×2 (08:47→20:53)
[2023-10-17] MEDS: POTASSIUM CHLORIDE 20 MEQ PACKET (FOR LIQUID) 40 MEQ FEED TUBE (08:47)
[2023-10-17] MEDS: FUROSEMIDE INJ 40 MG/4 ML VIAL IV PUSH (08:47)
[2023-10-17] MEDS: LOTEPREDNOL ETABONATE 0.5% OPH 5 ML BOTTLE 1 DROP EACH EYE ×2 (08:48→17:33)
[2023-10-17] MEDS: PANTOPRAZOLE SODIUM IV 40 MG VIAL IV PUSH (08:48)
[2023-10-17] MEDS: TOPIRAMATE 100 MG TABLET PO ×2 (09:13→17:33)
--- NOTE | 2023-10-17 11:41 | PCFNICU ---
ICU Rounding Note: Pt current nutrition is Vital 1.2 @ 40 ml/h with water flushes 30 ml q 4 h. Nutrition recommendation: Continue current nutrition care plan and tube feeding orders Last recorded weight is 51.3 kg. Bowel Motility: +2 BMs 10/17/23 Labs Reviewed: Hgb 11.6, Hct 36.5, Alb 3.3, Na 133, Cre 0.6, Glu 122 Meds Noted: Protonix, versed, zofran. Propofol @ 13.18 ml/h Skin: no skin issues Additional Notes: Pt awaiting transfer to [facility]. Propofol @ 13/18 ml/h= 347 kcals. tolerating current tube feeds. Orders: Vital 1.2 @ goal rate 40 ml/h: 1056 kcal (~90% EER), 66 g protein ( 86% estimated needs @ 1. g/kg), 713 ml free waater. Flush 30 ml water q 4 h. Following daily in ICU rounds. Monitor weight, vitals, labs, TF initiation/tolerance.
[2023-10-17 12:03] LABS: Glucose Point of Care 119 mg/dl (65-105)
--- NOTE | 2023-10-17 12:14 | WPDINTPN ---
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 Suspected additional focal acute subacute infarct in the left cerebellum. MR should be considered to further evaluate. -appreciate Neurology evaluation and recommendations -no anticoagulation at this time due to risk of hemorrhage per neurologist. (4) Acute respiratory failure: Code(s): J96.00 - Acute respiratory failure, unspecified whether with hypoxia or hypercapnia Status: Acute Assessment and Plan: Acute respiratory failure likely related to MRSA bacteremia, influenza pneumonia, septic emboli, possible pulmonary edema -patient was in the intermediate Unit alternating between BiPAP and high-flow therapy -increasing oxygen requirements since 10/11/2023, was on 75% FiO2 with 40 L flow rate on high-flow therapy -discussed with the patient regarding intubation to which she was agreeable -10/12: Brought in to the ICU and successfully intubated the patient and placed on mechanical ventilation with a PEEP of 10 and 100% FiO2, low tidal volume strategy -chest x-ray this morning showed : Diffuse pulmonary disease is similar to minimally improved from prior exam. -ABGs reviewed, ventilator adjusted -continue bronchodilators -continue antibiotics as above -sedated with Versed infusion and propofol. Will stay away from fentanyl due to risk of serotonin syndrome with linezolid -10/14: back on Nimbex patient was dyssynchronous with the ventilator and tachypneic. will try and wean Nimbex to off if patient tolerate -Will diurese patient today 10/13 CT chest without contrast: -Extensive groundglass pulmonary disease with worsening consolidation left upper lobe as well as additional bibasilar consolidation. Correlate for pulmonary edema, infection, and/or ARDS. Splenomegaly. (5) ARDS (adult respiratory distress syndrome): Code(s): J80 - Acute respiratory distress syndrome Status: Acute Assessment and Plan: On admission to the ICU patient was in ARDS physiology, -continue on low tidal volume strategy, patient was on peep of 10, peep of -chest x-ray and ABGs reviewed -continue sedation -oxygen has been adequate -continue antibiotics as above (6) Chest pain: Code(s): R07.9 - Chest pain, unspecified Status: Acute Assessment and Plan: C
--- NOTE | 2023-10-17 13:17 | P.PNIM_ITS ---
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 Suspected additional focal acute subacute infarct in the left cerebellum. MR should be considered to further evaluate. -appreciate Neurology evaluation and recommendations -no anticoagulation at this time due to risk of hemorrhage per neurologist. (4) Acute respiratory failure: Code(s): J96.00 - Acute respiratory failure, unspecified whether with hypoxia or hypercapnia Status: Acute Assessment and Plan: Acute respiratory failure likely related to MRSA bacteremia, influenza pneumonia, septic emboli, possible pulmonary edema -patient was in the intermediate Unit alternating between BiPAP and high-flow therapy -increasing oxygen requirements since 10/11/2023, was on 75% FiO2 with 40 L flow rate on high-flow therapy -discussed with the patient regarding intubation to which she was agreeable -10/12: Brought in to the ICU and successfully intubated the patient and placed on mechanical ventilation with a PEEP of 10 and 100% FiO2, low tidal volume strategy -chest x-ray this morning showed Stable diffuse pulmonary disease., -ABGs reviewed, ventilator adjusted -continue bronchodilators -continue antibiotics as above -sedated with Versed infusion and propofol. Will stay away from fentanyl due to risk of serotonin syndrome with linezolid -10/14: back on Nimbex patient was dyssynchronous with the ventilator and tachypneic. will try and wean Nimbex to off if patient tolerate 10/13 CT chest without contrast: -Extensive groundglass pulmonary disease with worsening consolidation left upper lobe as well as additional bibasilar consolidation. Correlate for pulmonary edema, infection, and/or ARDS. Splenomegaly. (5) ARDS (adult respiratory distress syndrome): Code(s): J80 - Acute respiratory distress syndrome Status: Acute Assessment and Plan: Currently in ARDS physiology, -have placed patient on low tidal volume strategy, high PEEP -chest x-ray and ABGs reviewed -continue sedation -oxygen has been adequate -continue antibiotics as above (6) Ch
[2023-10-17 18:27] LABS: Glucose Point of Care 122 mg/dl (65-105)
[2023-10-17] MEDS: LATANOPROST 0.005% OP SOLN 2.5 ML BTL 1 DROP EACH EYE (20:53)
[2023-10-18] VITALS (20 sets, daily range): BP systolic 107–123; BP diastolic 75–83; PULSE 80–124; RESP 23–30; TEMP 37.2–37.6; O2SAT 96–97
[2023-10-18 00:04] LABS: Glucose Point of Care 126 mg/dl (65-105)
--- NOTE | 2023-10-18 00:53 | PC.NURSE ---
Report called to Sharifa RN at [facility] for patient to go to ICU room 415 at 0040. Family notified at 0050. Awaiting EMS.
[2023-10-18] MEDS: LEVALBUTEROL NEB 1.25 MG/3 ML 0.63 MG INHALATION ×2 (02:12→09:06)
[2023-10-18] MEDS: IPRATROPIUM BR 0.02% INH SOLN 0.5 MG/2.5 ML VIAL INHALATION ×2 (02:12→09:06)
--- NOTE | 2023-10-18 02:36 | PC.NURSE ---
EMS arrived, had concerns about their vent and the fact that the patient is overbreathing her vent. Their supervisor tubing made the decision to send another unit with a different vent. No ETA given.
[2023-10-18 05:49] LABS: Hematocrit 35.4 % (37.0-47.0); Hemoglobin 11.7 g/dL (12.0-15.0); Immature Platelet Fraction Pct 10.4 % (0.9-11.2); Mean Corpuscular HGB Conc 33.1 g/dl (32-36); Mean Corpuscular Hemoglobin 32.2 pg (26-34); Mean Corpuscular Volume 97.5 fl (80-100); Mean Platelet Volume 11.6 fl (7.4-10.4); Platelet Count Result 127 k/mm3 (150-375); Red Blood Count 3.63 M/mm3 (4.2-5.4); Red Cell Distribution Width 14.6 % (11.5-14.5); White Blood Count 15.1 K/mm3 (4.5-10.0)
[2023-10-18] MEDS: CEFEPIME 2 GM/NS 50 ML 2 GM/50 ML BAG IVPB (05:52)
[2023-10-18] MEDS: PROPOFOL IV EMULSION 100 ML 11.53 MG IV CONT (05:52)
[2023-10-18 05:58] LABS: Alveolar/Arterial O2 Gradient 72.2 mmHg; Base Excess ABG 3.5 mEq/l (+/-2.0); Carboxyhemoglobin 0.3 % THb (0-2.0); Fractional Inspired Oxygen 30 %; HCO3 ABG 26.2 mEq/l (22.0-26.0); Methemoglobin ABG 0.2 %THb (0-1.5); Oxygen Content ABG 17.4 %vol (16.0-22.0); Oxygen Saturation ABG 98.2 % (95.0-100.0); Oxyhemoglobin 96.7 % THb (90.0-100.0); PCO2 ABG 33.8 mmHg (35.0-45.0); Reduced Hemoglobin 2.8 %THb (0-5.0); Total Hemoglobin 12.7 g/dL (12.0-18.0)
[2023-10-18] MEDS: CENTRAL LINE FLUSH 10 ML IV PUSH (05:59)
[2023-10-18 06:00] LABS: Alanine Aminotransferase 11 U/L (6-35); Albumin Level 3.4 g/dL (3.5-5.1); Alkaline Phosphatase 106 U/L (38-126); Anion Gap 6 mmol/L (8-16); Aspartate Amino Transferase 26 U/L (14-36); Bilirubin,Total 0.5 mg/dL (0.2-1.3); Blood Urea Nitrogen 15 mg/dL (7-17); Calcium 9.5 mg/dL (8.4-10.2); Carbon Dioxide 28 mmol/L (22-30); Chloride 99 mmol/L (98-107); Estimated CRCL calculation 73 ml/min; Estimated Glomerular Filt Rate > 60; Glucose 127 mg/dL (65-110); Magnesium 1.9 mg/dL (1.6-2.3); Potassium 3.4 mmol/L (3.4-5.0); Sodium 133 mmol/L (137-145)
[2023-10-18 06:04] LABS: pH ABG 7.508 (7.350-7.450)
[2023-10-18 06:05] LABS: Arterial Blood Gas PEEP 8 cmH2O; Arterial Blood Gas Tidal Volume 270 ml; Arterial Blood Gas Vent Mode CMV; Arterial Blood Gas Ventilator rate 16 /MIN; Device VENTILATOR; Modified Allen's Test Pass; Site Drawn RIGHT RADIAL
[2023-10-18] MEDS: fentaNYL CITRATE INJ (*CRX) 100 MCG/2 ML VIAL 50 MCG IV PUSH (06:42)
[2023-10-18 07:15] LABS: Platelet Estimate Adequate (Adequate)
[2023-10-18 07:16] LABS: Band Neutrophils Percent 7 % (0-6); Eosinophils Absolute Manual 0.45 K/mm3 (0.02-0.5); Eosinophils Percent Manual 3 % (0-4); Lymphocytes Absolute Manual 1.81 K/mm3 (1.1-4.5); Lymphocytes Percent Manual 12 % (18-44); Metamyelocytes Percent 2 %; Monocytes Absolute Manual 1.51 K/mm3 (0.1-0.90); Monocytes Percent Manual 10 % (3-9); Myelocytes Percent 1 %; Neutrophils Absolute Manual 10.72 K/mm3 (1.7-7.2); Neutrophils Percent Manual 64 % (46-73); Schistocytes None Seen (NORMAL); Total Cells Counted 100
[2023-10-18] MEDS: TOPIRAMATE 100 MG TABLET PO (07:56)
[2023-10-18] MEDS: MINERAL OIL/WHITE PETROLATUM OINTMENT 1 APPLIC EACH EYE (07:57)
[2023-10-18] MEDS: PANTOPRAZOLE SODIUM IV 40 MG VIAL IV PUSH (07:57)
[2023-10-18] MEDS: LINEZOLID 600 MG/300 ML 600 MG/300 ML SOLN 300 MG IVPB (07:57)
[2023-10-18] MEDS: LOTEPREDNOL ETABONATE 0.5% OPH 5 ML BOTTLE 1 DROP EACH EYE (07:58)
--- NOTE | 2023-10-18 10:12 | PC.NURSE ---
Patient transferred to [facility] via [facility] crew. All patient belongings given to EMS crew. [facility] notified when patient left the unit.
--- NOTE | 2023-10-18 16:15 | PM.TDS ---
Transfer Discharge Sum: Prov Provider Date of admission: 10/03/23 15:11 Primary care physician: Luz Colon, TRACE CLERK Admitting clinician: Shad Hernandez MD Consults: 10/01/23 17:31 Consult to Physician Routine Comment: spoke with exchange @[phone](,) Consulting Provider: Jaleel López Reason for consultation: re-consulting for KOLBY Has provider been notified: Yes 10/10/23 Consult to Dietitian Routine Reason for Consult:: poor appetite, Consult to Physician Routine Comment: spoke with exchange @[phone](,) Consulting Provider: Jaleel López will call order clerk/MD group to consult: Reason for consultation: KOLBY Has provider been notified: Yes 10/12/23 Consult to Physician Routine Comment: Consulting Provider: Piero Pepe Reason for consultation: ICU transfer Has provider been notified: Yes Consult to Physician Routine Comment: Spoke with and notified him of consult Consulting Provider: Cornelio Almanza Reason for consultation: Lower GI bleed Has provider been notified: Yes 10/13/23 07:35 Consult to Physician Routine Comment: Consulting Provider: Edis Watson will call order clerk/MD group to consult: Pulmonology Reason for consultation: pneumonia, ARDS Has provider been notified: Yes 10/13/23 09:44 Consult to Physician Routine Comment: spoke with Dr. Barfield @[phone](,) Consulting Provider: Fifi Barfield will call order clerk/MD group to consult: NEUROLOGY Reason for consultation: Acute Stroke Has provider been notified: Yes DS: Admitting Diagnosis Discharge Date 10/18/23 Admitting Diagnosis Shortness of breath DS: Discharge Diagnosis Discharge Diagnosis (1) Bacteremia: Code(s): R78.81 - Bacteremia Status: Acute (2) Endocarditis: Code(s): I38 - Endocarditis, valve unspecified Status: Acute (3) Stroke: Qualifiers: CVA mechanism: embolism Laterality of affected vessel: left Code(s): I63.9 - Cerebral infarction, unspecified Status: Acute (4) Acute respiratory failure: Code(s): J96.00 - Acute respiratory failure, unspecified whether with hypoxia or hypercapnia Status: Acute (5) ARDS (adult respiratory distress syndrome): Code(s): J80 - Acute respiratory distress syndrome Status: Acute (6) Chest pain: Code(s): R07.9 - Chest pain, unspecified Status: Acute (7) Cardiomyopathy: Code(s): I42.9 - Cardiomyopathy, unspecified Status: Acute (8) Pneumonia due to influenza A virus: Code(s): J10.00 - Influenza due to other identified influenza virus with unspecified type of pneumonia Status: Acute (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, not elsewhere classified; L81.4 - Other melanin hyperpigmentation Status: Acute (10) Rectal bleeding: Code(s): K62.5 - Hemorrhage of anus and rectum Status: Acute (11) Congenital heart disease: Code(s): Q24.9 - Congenital malformation of heart, unspecified Status: Acute (12) Electrolyte abnormality: Code(s): E87.8 - Other disorders of electrolyte and fluid balance, not elsewhere classified Status: Acute (13) Thrombocytopenia: Code(s): D69.6 - Thrombocytopenia, unspecified Status: Acute Transfer Discharge Sum: Med Medications Active and Home Medications: Home Medications albuterol sulfate 2.5 mg/3 mL (0.083 %) solution for nebulization 2.5 mg continuous nebulization PRN PRN SOB 10/01/23 [History Confirmed 10/01/23] albuterol sulfate 90 mcg/actuation aerosol inhaler 90 mcg inhalation 4-6XD PRN sob 10/01/23 [History Confirmed 10/01/23] amitriptyline 100 mg tablet 100 mg PO QHS sleep 10/01/23 [History Confirmed 10/01/23] budesonide-formoterol HFA 160 mcg-4.5 mcg/actuation aerosol inhaler (Symbicort) 2 puff inhalation BID 10/01/23 [History Confirmed 10/01/23] nsqdebsqag-npnwdtvsrmper-xcyfwqgx 50 mg-325 mg-40
== END 2023-10-18 09:55 | disposition short-term general hospital (02) | DRG 720 ==
LOC: ANHED 18:55 → ANHIMU 20:39 → ANH3MEDSUR 10-02 16:33 → ANHICU 10-06 01:18 → ANHIMU 10-07 21:13 → ANHICU 10-12 15:47
PROVIDERS: Emergency Medicine; Internal Medicine; Internal Medicine Cardiovascular Disease; Physician Assistant; Admitting Provider Family Medicine; Emergency Provider Emergency Medicine; PCP Nurse Practitioner Family; Visit Provider Family Medicine
PROC: B24BZZ4 Ultrasonography of Heart with Aorta, Transesophageal (ICD-10-PCS; CPT 93312; principal; 2023-10-13 09:30)
DX: A41.02 Sepsis due to Methicillin resistant Staphylococcus aureus (principal); J10.08 Influenza due to other identified influenza virus with other specified pneumonia; J15.212 Pneumonia due to Methicillin resistant Staphylococcus aureus; J96.01 Acute respiratory failure with hypoxia; I33.0 Acute and subacute infective endocarditis; I63.9 Cerebral infarction, unspecified; R65.20 Severe sepsis without septic shock; R79.89 Other specified abnormal findings of blood chemistry; E86.0 Dehydration; E87.6 Hypokalemia; F32.A Depression, unspecified; I42.2 Other hypertrophic cardiomyopathy; J45.909 Unspecified asthma, uncomplicated; L81.4 Other melanin hyperpigmentation; Z20.822 Contact with and (suspected) exposure to COVID-19; K62.5 Hemorrhage of anus and rectum; K64.9 Unspecified hemorrhoids; I21.A1 Myocardial infarction type 2; H57.02 Anisocoria; D69.59 Other secondary thrombocytopenia; T36.8X5A Adverse effect of other systemic antibiotics, initial encounter; Q07.00 Arnold-Chiari syndrome without spina bifida or hydrocephalus; Q23.1 Congenital insufficiency of aortic valve; Q87.89 Other specified congenital malformation syndromes, not elsewhere classified; Z87.74 Personal history of (corrected) congenital malformations of heart and circulatory system; Z98.890 Other specified postprocedural states; Z87.891 Personal history of nicotine dependence
CPT/HCPCS: 31500; 36415; 36600; 70450; 70496; 70498; 71045; 71250; 71275; 74176; 80048; 80053; 80069; 80202; 81003; 82375; 82533; 82805; 82948; 83050; 83605; 83690; 83735; 83880; 84100; 84132; 84145; 84443; 84478; 84484; 84703; 85025; 85027; 85049; 85055; 85380; 85384; 85610; 85730; 86140; 87040; 87045; 87070; 87177; 87205; 87209; 87427; 87449; 87493; 87637; 87641; 89055; 92610; 92611; 93005; 93312; 93320; 93325; 93970; 94002; 94003; 94640; 94667; 94669; 96374; 96375; 97110; 97116; 97161; 97165; 97530; 97535; 99285; A9270; C1751; C8929; C9113; G0378; G0379; J0692; J0696; J1644; J1650; J1940; J2020; J2250; J2405; J2704; J2920; J3010; J3370; J3475; J3480; J7030; J7040; J7042; J7050; P9047; Q9957; Q9967